=== PATIENT | male | born 1945 | race Caucasian/White ===

== ENCOUNTER 2022-12-12 17:32 | Inpatient (IN) | payer MEDICARE, MEDICAID, SELFPAY ==
--- NOTE | ~2022-12-12 | CT_ITS ---
EXAMINATION: CT ABDOMEN AND PELVIS WITH CONTRAST CLINICAL INFORMATION: Sepsis with left lower quadrant pain COMPARISON: CT abdomen and pelvis 11/28/2018 TECHNIQUE: Multidetector volumetric images were obtained from the superior aspect of the liver through the pubic symphysis following administration 85 mL of Omnipaque 350 intravenous contrast. Sagittal and coronal reformatted images were obtained on the technologist's workstation. Oral contrast: No This CT examination was performed using dose optimization techniques as appropriate, variously including the following: *Automated exposure control *Adjustment of mA and/or kV according to patient size (this includes techniques or standardized protocols for targeted exams where dose is matched to indication/reason for exam; i.e. extremities or head) *Use of iterative reconstruction technique DLP: 547 mGy-cm FINDINGS: LUNG BASES: Bibasilar atelectasis/scarring is present. No consolidations, pleural effusions or suspicious lung masses are seen LIVER, GALLBLADDER, AND BILIARY TREE: The liver is normal in size, shape, and attenuation. No focal hepatic lesion or biliary ductal dilatation is present. Status post cholecystectomy. PANCREAS: Unremarkable. SPLEEN: Unremarkable. ADRENAL GLANDS: Unremarkable. KIDNEYS AND URETERS: The kidneys are normal in size, shape, and attenuation. Dense seen are bilateral Bosniak class I cortical and parapelvic cysts which need no additional imaging or follow-up. No suspicious solid renal masses are seen. No hydronephrosis, hydroureter, or calculi seen. No perinephric stranding. BLADDER: Mild symmetric bladder wall thickening. GASTROINTESTINAL TRACT: There is some mild thickening of the rectal wall which may be secondary to underdistention. No perirectal inflammatory change is seen. Some colonic diverticula are present without diverticulitis. . The small and large bowel are otherwise unremarkable. The appendix is not seen with certainty but there is no evidence of appendicitis appendicitis. ABDOMINAL WALL: No significant hernia is appreciated. LYMPH NODES: No retroperitoneal lymphadenopathy. VASCULAR: Unremarkable. PELVIC VISCERA: There is moderate BPH. Seminal vesicles appear normal. Tiny amount of free fluid is present in the pelvis (3:70). OSSEOUS STRUCTURES: Degenerative changes are again seen in the spine. There is grade 1 anterolisthesis of L5 upon S1. Again seen are 3 screws through the left femoral neck. CT/CT abdomen pelvis w IV con IMPRESSION: An etiology for the patient's left lower quadrant pain has not been found. Incidental findings as described above including BPH. Fleischner guidelines were followed.
--- NOTE | ~2022-12-12 | XR_ITS ---
EXAMINATION: PORTABLE CHEST 1 VIEW CLINICAL INFORMATION: fever . COMPARISON: 11/28/2018. TECHNIQUE: Portable frontal view of the chest was obtained. FINDINGS: Lungs well-expanded. Linear scarring or subsegmental atelectasis at left base. Chronic appearing coarsened reticular markings are seen bilaterally. I do not appreciate any definitive acute superimposed focal infiltrate, effusion, edema, or pneumothorax. Cardiac and mediastinal silhouettes within normal limits for size for the technique. XR/XR chest 1V IMPRESSION: Chronic appearing changes similar to the 11/28/2018 study. I do not appreciate any definitive acute superimposed process.
[2022-12-12 17:33] VITALS: BP 137/74; BP 196/98; PULSE 110; PULSE 98; RESP 16; TEMP 37.4; O2SAT 97; O2SAT 99; BMI 23.8
[2022-12-12 17:42] VITALS: BP 137/74; BP 196/98; PULSE 110; PULSE 92; RESP 18; TEMP 37.4; O2SAT 97; O2SAT 99; BMI 23.8
--- NOTE | 2022-12-12 18:20 | ECG_ITS ---
Test Reason : SEPSYS Blood Pressure : / mmHG Vent. Rate : 082 BPM Atrial Rate : 082 BPM P-R Int : 146 ms QRS Dur : 092 ms QT Int : 340 ms P-R-T Axes : 072 078 064 degrees QTc Int : 397 ms Sinus rhythm with marked sinus arrhythmia Otherwise normal ECG No previous ECGs available Referred By: Kim Meneses Electronically Signed By:Reg Rodarte
[2022-12-12 18:25] VITALS: BP 140/64; PULSE 104; RESP 20; TEMP 39.3; O2SAT 91
[2022-12-12 18:45] LABS: MANUAL DIFF FLAG NO
[2022-12-12 18:47] LABS: Appearance Urine Cloudy; Color Urine Yellow; Glucose Urine UA Negative (Negative); Leukocyte Esterase Urine Moderate (2+) (Negative); Nitrite Urine Negative (Negative); UMIC TRIGGER UACC YES; Urine Blood Trace (Negative); Urine Ketones Negative (Negative); Urine Protein Negative (Neg-Trace)
[2022-12-12 18:50] LABS: Basophils Percent Auto 0.5 % (0-2); Eosinophils Percent Auto 0.3 % (0-4); Hematocrit 34.8 % (42.0-52.0); Hemoglobin 11.7 g/dl (14.0-18.0); Imm Gran Abs Auto 0.02 X10*3/uL (0.00-0.03); Imm Gran Pct Auto 0.3 % (0.0-0.4); Lymphocytes Absolute Auto 0.5 X10*3/uL (1.2-4.9); Lymphocytes Percent Auto 8.1 % (20-40); Mean Corpuscular HGB Conc 33.6 g/dl (31.0-36.0); Mean Corpuscular Hemoglobin 28.9 pg (27.0-33.0); Mean Corpuscular Volume 85.9 fL (80.0-98.0); Mean Platelet Volume 9.3 fL (9.4-12.4); Monocytes Absolute Auto 0.3 X10*3/uL (0.1-1.2); Monocytes Percent Auto 4.3 % (2-11); Neutrophils Absolute Auto 5.6 x10*3/uL (2.0-8.3); Neutrophils Percent Auto 86.5 % (45-73); Platelet Count 143 X10*3/uL (160-400); Red Blood Count 4.05 X10*6/uL (4.60-5.80); Red Cell Distribution Width 13.2 % (11.0-16.0); White Blood Count 6.4 X10*3/uL (4.8-10.8)
[2022-12-12 18:52] LABS: Bacteria Urine 4+ (None Seen); Hyaline Casts Urine 0-2 /LPF (0-2); INTERNATIONAL NORM RATIO 1.1 (0.9-1.1); Prothrombin Time 12.5 SEC (10.0-13.1); RBC Urine >20 /HPF (0-2); Squamous Epithelial Cell Urine 0-2 /HPF (0-2); UACC Culture Trigger YES; WBC Urine >50 /HPF (0-5)
[2022-12-12] MEDS: 0.9 % Sodium Chloride 2,000 ML 999 ML IVCONT (18:53)
[2022-12-12] MEDS: cefTRIAXone sodium 1 GM in 0.9 % Sodium Chloride 50 ML IV (18:53)
[2022-12-12] MEDS: Acetaminophen 325 MG TABLET 975 MG PO (18:54)
--- NOTE | 2022-12-12 18:55 | ED_ITS ---
HPI - Abdominal Pain General Chief Complaint: Abdominal Pain Stated Complaint: ABD PAIN PER EMS Time Seen by Provider: 12/12/22 17:54 Source: EMS Mode of arrival: EMS Limitations: no limitations History of Present Illness HPI narrative: Patient comes to the emergency room via ambulance from home. According to EMS, patient's caregiver noted that the patient had a heart rate in the 120 is. Also, patient complaining of left lower quadrant pain. Patient is poor historian and can not give any significant history. Patient is known to have recurrent UTIs and sepsis. On arrival, it was noted that patient's rectal temperature is 102.7 degrees. Patient states that he has been vomiting and having diarrhea as well. Patient states that everything started this morning. Related Data Allergies Allergy/AdvReac Type Severity Reaction Status Date / Time No Known Allergies Allergy Unverified 12/12/22 17:32 [No Known Allergies*] Review of Systems Review of Systems Constitutional : No Weight loss, No Fever, No Chills, No Night Sweats, No Fatigue, No Malaise ENT/Mouth : No Hearing loss, No Ear Pain, No Nasal Congestion, No Sinus Pain, No Hoarseness, No sore throat, No Rhinorrhea, No Swallowing Difficulty Eyes: No Eye Pain, No Swelling, No Redness, No Foreign Body, No Discharge, No Vision Changes Cardiovascular : No Chest Pain, No SOB, No Dyspnea on Exertion, No Orthopnea, No Edema, No Palpitations Respiratory : No Cough, No Sputum, No Wheezing, No Smoke Exposure, No Dyspnea Gastrointestinal : Complaining of nausea vomiting and diarrhea, complaining of left lower quadrant pain Genitourinary : no irregular bleeding, No Dysuria, No Urinary Frequency, No Hematuria, No Urinary Incontinence, No Urgency, No Flank Pain, No Urinary Flow Changes, No Hesitancy Musculoskeletal : No joint pain, No Myalgias, No Joint Swelling Skin : No Skin Lesions, No rash Neuro : No Weakness, No Numbness, No Paresthesias, No Loss of Consciousness, No Dizziness, No Headache Psych : No Anxiety/Panic, No Depression, No SI/HI/AH/VH, No Social Issues, Heme/Lymph: No Bruising, No Bleeding,No Lymphadenopathy Endocrine : No Polyuria, No Polydipsia, No Temperature Intolerance PMF Social History Social History Alcohol intake: never Smoked in Last 30 Days: No Use of substances other than those prescribed or required for medical reasons: No Advance Directives: No Advance Directives Information Provided: No Physical Exam ED Vital Signs: Vital Signs - 24 hr 12/12/22 17:33 12/12/22 17:42 12/12/22 18:25 Temperature 99.4 F 99.4 F 102.7 F H Pulse Rate 98 92 104 H Respiratory Rate 16 18 20 Blood Pressure 137/74 137/74 140/64 H Pulse Oximetry 97 97 91 L Oxygen Delivery Method Room Air Room Air Room Air 12/12/22 21:23 12/12/22 21:50 Temperature 99.4 F Pulse Rate 79 90 Respiratory Rate 15 16 Blood Pressure 135/61 137/62 Pulse Oximetry 100 99 Oxygen Delivery Method Room Air Room Air BMI result Body Mass Index 23.8 Const Other: Appearance: Alert. Oriented X3. No acute distress. Eyes: Pupils equal, round and reactive to light. ENT: Pharynx normal. Neck: Normal inspection. Neck supple. No lymph nodes noted. No crepitus CVS: Normal heart rate and rhythm. Pulses normal. Normal S1 and S2 Respiratory: No respiratory distress. Breath sounds normal. No Wheezing. No rales Abdomen: Soft nondistended, tender to palpation in left lower quadrant Skin: Dry, very warm to touch. Patient likely has high fever Extremities: No lower extremity edema. No Lacerations. No Rash Neuro: Oriented X 3. No motor deficit. No sensory deficit. Moving all ex tremities. No slurred speech. CN 2 through 12 grossly intact Psych: calm, cooperative, normal affect Course Course Course Narrative: -patient has a fever, normal blood pressure. Patient has history of recurrent UTIs with sepsis. Patient being empirically treated with IV fluids and ceftriaxone, given p.o. acetaminophen -all of patient's labs pending Medical Decision Making Medical Decision Making MDM Narrative: -patient did have fever, tachycardia. Blood pressure stable. Patient was empirically treated with IV fluids and ceftriaxone. -labs are positive for UTI. -patient being admitted, discussed with Dr. Lees Admission/Observation Consideration of admission/observation: Escalation of care including admission/observation considered Consult Healthcare Provider Management of the patient was discussed with: Hospitalist Lab Data [facility] Lab Attestation statement: I reviewed the patient's lab results. 12/12/22 18:35 12/12/22 18:35 Labs: Lab Results 12/12/22 12/12/2212/12/23 Range/Units 18:35 18:35 18:35 WBC 6.4 (4.8-10.8) X10*3/uL RBC 4.05 L (4.60-5.80) X10*6/uL Hgb 11.7 L (14.0-18.0) g/dl Hct 34.8 L (42.0-52.0) % MCV 85.9 (80.0-98.0) fL MCH 28.9 (27.0-33.0) pg MCHC 33.6 (31.0-36.0) g/dl RDW 13.2 (11.0-16.0) % Plt Count 143 L (160-400) X10*3/uL MPV 9.3 L (9.4-12.4) fL Immature Gran % (Auto) 0.3 (0.0-0.4) % Neut % (Auto) 86.5 H (45-73) % Lymph % (Auto) 8.1 L (20-40) % [place] % (Auto) 4.3 (2-11) % Eos % (Auto) 0.3 (0-4) % Baso % (Auto) 0.5 (0-2) % Lymph # (Auto) 0.5 L (1.2-4.9) X10*3/uL [place] # (Auto) 0.3 (0.1-1.2) X10*3/uL Eos # (Auto) 0.0 (0.0-0.4) X10*3/uL Baso # (Auto) 0.0 (0.0-0.2) X10*3/uL Abs Immat Gran (auto) 0.02 (0.00-0.03) X10*3/uL Absolute Neuts (auto) 5.6 (2.0-8.3) x10*3/uL Absolute Nucleated RBC 0.000 (0.0-0.012) X10*3/uL Nucleated RBC % (auto) 0.0 (0.0-0.2) /100WBC PT (10.0-13.1) SEC INR (0.9-1.1) Sodium 140 (135-145) mmol/L Potassium 4.1 (3.3-5.1) mmol/L Chloride 108 (96-108) mmol/L Carbon Dioxide 23 (22-29) mmol/L Anion Gap 13 (12-20) BUN 26 H (9-16) mg/dL Creatinine 0.74 (0.5-1.4) mg/dL Estim Creat Clear Calc 95.6 Estimated GFR > 60 Random Glucose 106 (60-115) mg/dL Lactic Acid (0.5-2.0) mmol/L Calcium 8.5 (8.4-10.2) mg/dL Magnesium 1.5 L (1.6-2.6) mg/dL Total Bilirubin 0.4 (0.0-1.0) mg/dL Direct Bilirubin < 0.2 (0.0-0.5) mg/dL AST 14 (5-37) U/L ALT 12 (0-40) U/L Alkaline Phosphatase 62 (39-117) U/L Troponin I High Sens 9.4 (<3.5-35.0) ng/L Total Protein 5.9 L (6.5-8.0) g/dL Albumin 3.6 (3.5-5.0) g/dL Lipase 16 (8-78) U/L Urine Color Urine Appearance Urine pH (5.0-9.0) Ur Specific [place] (1.005-1.025) Urine Protein (Neg-Trace) mg/dL Urine Glucose (UA) (Negative) mg/dL Urine Ketones (Negative) mg/dL Urine Blood (Negative) Urine Nitrite (Negative) Ur Leukocyte Esterase (Negative) Urine RBC (0-2) /HPF Urine WBC (0-5) /HPF Ur Squamous Epith Cells (0-2) /HPF Urine Bacteria (None Seen) Hyaline Casts (0-2) /LPF COVID-19 (KA[facility]AL) (Negative) COVID-19 Clin Com Influenza Type A (JUAN PABLO) (Negative) Influenza Type B (JUAN PABLO) (Negative) Influenza A & B Note 12/12/22 12/12/22 12/12/22 Range/Units 18:35 18:35 18:35 WBC (4.8-10.8) X10*3/uL RBC (4.60-5.80) X10*6/uL Hgb (14.0-18.0) g/dl Hct (42.0-52.0) % MCV (80.0-98.0) fL MCH (27.0-33.0) pg MCHC (31.0-36.0) g/dl RDW (11.0-16.0) % Plt Count (160-400) X10*3/uL MPV (9.4-12.4) fL Immature Gran % (Auto) (0.0-0.4) % Neut % (Auto) (45-73) % Lymph % (Auto) (20-40) % [place] % (Auto) (2-11) % Eos % (Auto) (0-4) % Baso % (Auto) (0-2) % Lymph # (Auto) (1.2-4.9) X10*3/uL [place] # (Auto) (0.1-1.2) X10*3/uL Eos # (Auto) (0.0-0.4) X10*3/uL Baso # (Auto) (0.0-0.2) X10*3/uL Abs Immat Gran (auto) (0.00-0.03) X10*3/uL Absolute Neuts (auto) (2.0-8.3) x10*3/uL Absolute Nucleated RBC (0.0-0.012) X10*3/uL Nucleated RBC % (auto) (0.0-0.2) /100WBC PT 12.5 (10.0-13.1) SEC INR 1.1 (0.9-1.1) Sodium (135-145) mmol/L Potassium (3.3-5.1) mmol/L Chloride (96-108) mmol/L Carbon Dioxide (22-29) mmol/L Anion Gap (12-20) BUN (9-16) mg/dL Creatinine (0.5-1.4) mg/dL Estim Creat Clear Calc Estimated GFR Random Glucose (60-115) mg/dL Lactic Acid 1.0 (0.5-2.0) mmol/L Calcium (8.4-10.2) mg/dL Magnesium (1.6-2.6) mg/dL Total Bilirubin (0.0-1.0) mg/dL Direct Bilirubin (0.0-0.5) mg/dL AST (5-37) U/L ALT (0-40) U/L Alkaline Phosphatase (39-117) U/L Troponin I High Sens (<3.5-35.0) ng/L Total Protein (6.5-8.0) g/dL Albumin (3.5-5.0) g/dL Lipase (8-78) U/L Urine Color Urine Appearance Urine pH (5.0-9.0) Ur Specific [place] (1.005-1.025) Urine Protein (Neg-Trace) mg/dL Urine Glucose (UA) (Negative) mg/dL Urine Ketones (Negative) mg/dL Urine Blood (Negative) Urine Nitrite (Negative) Ur Leukocyte Esterase (Negative) Urine RBC (0-2) /HPF Urine WBC (0-5) /HPF Ur Squamous Epith Cells (0-2) /HPF Urine Bacteria (None Seen) Hyaline Casts (0-2) /LPF COVID-19 (KAJAL) Negative (Negative) COVID-19 Clin Com See Note Influenza Type A (JUAN PABLO) (Negative) Influenza Type B (JUAN PABLO) (Negative) Influenza A & B Note 12/12/22 12/12/22 Range/Units 18:35 21:22 WBC (4.8-10.8) X10*3/uL RBC (4.60-5.80) X10*6/uL Hgb (14.0-18.0) g/dl Hct (42.0-52.0) % MCV (80.0-98.0) fL MCH (27.0-33.0) pg MCHC (31.0-36.0) g/dl RDW (11.0-16.0) % Plt Count (160-400) X10*3/uL MPV (9.4-12.4) fL Immature Gran % (Auto) (0.0-0.4) % Neut % (Auto) (45-73) % Lymph % (Auto) (20-40) % [place] % (Auto) (2-11) % Eos % (Auto) (0-4) % Baso % (Auto) (0-2) % Lymph # (Auto) (1.2-4.9) X10*3/uL [place] # (Auto) (0.1-1.2) X10*3/uL Eos # (Auto) (0.0-0.4) X10*3/uL Baso # (Auto) (0.0-0.2) X10*3/uL Abs Immat Gran (auto) (0.00-0.03) X10*3/uL Absolute Neuts (auto) (2.0-8.3) x10*3/uL Absolute Nucleated RBC (0.0-0.012) X10*3/uL Nucleated RBC % (auto) (0.0-0.2) /100WBC PT (10.0-13.1) SEC INR (0.9-1.1) Sodium (135-145) mmol/L Potassium (3.3-5.1) mmol/L Chloride (96-108) mmol/L Carbon Dioxide (22-29) mmol/L Anion Gap (12-20) BUN (9-16) mg/dL Creatinine (0.5-1.4) mg/dL Estim Creat Clear Calc Estimated GFR Random Glucose (60-115) mg/dL Lactic Acid (0.5-2.0) mmol/L Calcium (8.4-10.2) mg/dL Magnesium (1.6-2.6) mg/dL Total Bilirubin (0.0-1.0) mg/dL Direct Bilirubin (0.0-0.5) mg/dL AST (5-37) U/L ALT (0-40) U/L Alkaline Phosphatase (39-117) U/L Troponin I High Sens (<3.5-35.0) ng/L Total Protein (6.5-8.0) g/dL Albumin (3.5-5.0) g/dL Lipase (8-78) U/L Urine Color Yellow Urine Appearance Cloudy Urine pH 6.0 (5.0-9.0) Ur Specific [place] 1.020 (1.005-1.025) Urine Protein Negative (Neg-Trace) mg/dL Urine Glucose (UA) Negative (Negative) mg/dL Urine Ketones Negative (Negative) mg/dL Urine Blood Trace H (Negative) Urine Nitrite Negative (Negative) Ur Leukocyte Esterase Moderate (2+) H (Negative) Urine RBC >20 H (0-2) /HPF Urine WBC >50 H (0-5) /HPF Ur Squamous Epith Cells 0-2 (0-2) /HPF Urine Bacteria 4+ (None Seen) Hyaline Casts 0-2 (0-2) /LPF COVID-19 (KA[facility]) (Negative) COVID-19 Clin Com Influenza Type A (JUAN PABLO) Negative (Negative) Influenza Type B (JUAN PABLO) Negative (Negative) Influenza A & B Note See Note Radiology Impression Discussion of test interpretation with radiology: I have reviewed the radiologist's reading. Radiologist Impression: CT scan of abdomen and pelvis: FINDINGS: LUNG BASES: Bibasilar atelectasis/scarring is present. No consolidations, pleural effusions or suspicious lung masses are seen LIVER, GALLBLADDER, AND BILIARY TREE: The liver is normal in size, shape, and attenuation. No focal hepatic lesion or biliary ductal dilatation is present. Status post cholecystectomy.? PANCREAS: Unremarkable.? SPLEEN: Unremarkable.? ADRENAL GLANDS: Unremarkable.? KIDNEYS AND URETERS: The kidneys are normal in size, shape, and attenuation. Dense seen are bilateral Bosniak class I cortical and parapelvic cysts which need no additional imaging or follow-up. No suspicious solid renal masses are seen. No hydronephrosis, hydroureter, or calculi seen. No perinephric stranding. ? BLADDER: Mild symmetric bladder wall thickening.? GASTROINTESTINAL TRACT: There is some mild thickening of the rectal wall which may be secondary to underdistention. No perirectal inflammatory change is seen. Some colonic diverticula are present without diverticulitis. . The small and large bowel are otherwise unremarkable. The appendix is not seen with certainty but there is no evidence of appendicitis appendicitis.? ABDOMINAL WALL: No significant hernia is appreciated.? LYMPH NODES: No retroperitoneal lymphadenopathy. VASCULAR: Unremarkable. PELVIC VISCERA: There is moderate BPH. Seminal vesicles appear normal. Tiny amount of free fluid is present in the pelvis (3:70). OSSEOUS STRUCTURES: Degenerative changes are again seen in the spine. There is grade 1 anterolisthesis of L5 upon S1. Again seen are 3 screws through the left femoral neck. CT/CT abdomen pelvis w IV con IMPRESSION: An etiology for the patient's left lower quadrant pain has not been found. Incidental findings as described above including BPH. ? Fleischner guidelines were followed. Chest x-ray: FINDINGS: Lungs well-expanded. Linear scarring or subsegmental atelectasis at left base. Chronic appearing coarsened reticular markings are seen bilaterally. I do not appreciate any definitive acute superimposed focal infiltrate, effusion, edema, or pneumothorax. Cardiac and mediastinal silhouettes within normal limits for size for the technique. XR/XR chest 1V IMPRESSION: Chronic appearing changes similar to the 11/28/2018 study. I do not appreciate any definitive acute superimposed process Medications Administered Discontinued Medications Generic Name Dose Route Start Last Admin Trade Name Freq PRN Reason Stop Dose Admin Acetaminophen 975 mg 12/12/22 18:37 12/12/22 18:54 Acetaminophen 325 Mg Tablet PO 12/12/22 18:38 975 mg ONCE ONE Administration Sodium Chloride 2,000 mls @ 999 mls/hr 12/12/22 18:20 12/12/22 21:20 Ns IVCONT 12/12/22 20:20 Infused .Q2H1M ONE Infusion Ceftriaxone Sodium 1 gm/ 50 mls @ 100 mls/hr 12/12/22 18:36 12/12/22 19:25 Sodium Chloride IV 12/12/22 19:05 Infused ONCE ONE Infusion Magnesium Sulfate/Dextrose 1 gm in 100 mls @ 100 mls/hr 12/12/22 19:47 12/12/22 21:20 Magnesium Sulfate/D5w IV 12/12/22 20:46 Infused ONCE ONE Infusion Iohexol 100 ml 12/12/22 19:40 12/12/22 19:40 Iohexol 350 Mg/Ml 100 Ml Infus..Btl IV 12/12/22 19:41 85 ml ONCE ONE Administration Critical Care Time Critical Care Time Critical Care Time: Yes Total Critical Care Time: 45 Attestation: I have personally provided critical care time. Time includes review of lab data, radiology results, discussion with consultants, and monitoring for potential decompensation. Intervention performed as documented. Discharge Plan Discharge Clinical Impression: Acute UTI Patient Disposition: Admitted As Inpatient
[2022-12-12 19:04] LABS: Alanine Aminotransferase 12 U/L (0-40); Albumin Level 3.6 g/dL (3.5-5.0); Alkaline Phosphatase 62 U/L (39-117); Anion Gap 13 (12-20); Aspartate Amino Transferase 14 U/L (5-37); Bilirubin Direct < 0.2 mg/dL (0.0-0.5); Bilirubin Total 0.4 mg/dL (0.0-1.0); Blood Urea Nitrogen 26 mg/dL (9-16); COVID-19 Test Negative (Negative); Calcium 8.5 mg/dL (8.4-10.2); Carbon Dioxide 23 mmol/L (22-29); Chloride 108 mmol/L (96-108); Creatinine Clr Calc Pharmacy 95.6; Estimated Glomerular Filt Rate > 60; Glucose Random 106 mg/dL (60-115); IDNOW Serial# 6674DD1D; Magnesium 1.5 mg/dL (1.6-2.6); Potassium 4.1 mmol/L (3.3-5.1); Sodium 140 mmol/L (135-145); Total Protein 5.9 g/dL (6.5-8.0)
[2022-12-12 19:08] LABS: Troponin-I High Sensitivity 9.4 ng/L (<3.5-35.0)
[2022-12-12 19:20] LABS: Lipase 16 U/L (8-78)
[2022-12-12] MEDS: iohexoL 350 MG/ML 100 ML INFUS..BTL IV (19:40)
[2022-12-12] MEDS: Magnesium Sulfate/D5W 1 GM/100 ML PIGGYBACK IV (20:22)
[2022-12-12 21:23] VITALS: BP 135/61; PULSE 79; RESP 15; TEMP 37.4; O2SAT 100
--- NOTE | 2022-12-12 21:43 | PC.NURSE ---
This RN received pt at 2114, pt fluids finishing up, mag finished. BP entered for sepsis protocol. This RN and PCT Adriana, changed pt and took new rectal temp. Temp has decreased from original temperature. Pt reports mild abdominal pain at this time
[2022-12-12 21:50] VITALS: BP 137/62; PULSE 90; RESP 16; O2SAT 99
[2022-12-12 22:17] LABS: IDNOW Serial# 6674DD1D; Influenza A Negative (Negative); Influenza B2 Negative (Negative)
[2022-12-12 22:47] VITALS: BP 120/67; PULSE 82; RESP 16; O2SAT 98
--- NOTE | 2022-12-12 23:50 | PM.IMHP ---
History of Present Illness Date of Service: 12/12/22 Chief Complaint: chills, tachycardic this is a 77-year-old male with past medical history of intellectual disability,HTN brought in by his assistant child care teacher due to tachycardia. patient is alert, oriented to self and place and does answer yes or no questions but he is very soft-spoken, and information technology teacher is mostly answering for him. She states that he was complaining of shaking, chills, she checked his vitals and found him to have a heart rate in the 120s. She also states that last night he was pointing to his bladder and stating that he was hurting. Patient himself reports urinary frequency, no dysuria or urgency. no fever but has chills, no abdominal pain no chest pain, no nausea or vomiting, no diarrhea constipation But has soft stools, no urinary symptoms. information technology teacher also states that he has been having eye drainage in his left that is tacky, and appears to be eye infection. Started the night prior. on arrival to the ED patient hemodynamically stable with a temperature of 102.7 degrees, heart rate of 104 Labs are significant for WBC count of 6.4, hemoglobin of 11.7, hematocrit 34.8, labs otherwise unremarkable, UA positive for leukocyte Estrace, WBC, and urine bacteria, chest x-ray shows chronic appearing changes similar to prior with no new acute superimposed process Abdominal pelvic CT shows no etiology for left lower quadrant pain, diverticulosis with no diverticulitis Review of Systems Review of Systems: Yes all other systems are reviewed and are negative [facility] Medical History Hypertension Intellectual disability Social History Household Members: Spouse Housing: House Do you presently have visiting nurse or other home services: Yes Alcohol intake: never Patient Tobacco Use Status: Never used Tobacco Smoked in Last 30 Days: No Use of substances other than those prescribed or required for medical reasons: No Currently Displaying Signs/Symptoms of Drug Intoxication Withdrawal: No Any prior treatment program specific to substance use: No Have you been hit, kicked, punched, or otherwise hurt by someone within the past year? If so, by whom?: No Do you feel safe in your current relationship?: Yes Is there a partner from a previous relationship who is making you feel unsafe now?: No Are you made to feel afraid or neglected: No Advance Directives: No Advance Directives Information Provided: No Do you have thoughts of harming others: None Do you have a plan to hurt others: No Plan Recently lost weight without trying: No Eating poorly because of decreased appetite: No Nutrition Risks: No Nutritional Risk Poor oral hygiene: No Meds Allergies Allergy/AdvReac Type Severity Reaction Status Date / Time No Known Allergies Allergy Unverified 12/12/22 17:32 [No Known Allergies*] Physical Exam Vital Signs and Narrative: Vital Signs: Last Vital Signs Temp 99.4 F 12/12/22 21:23 Pulse 82 12/12/22 22:47 Resp 16 12/12/22 22:47 BP 120/67 12/12/22 22:47 Pulse Ox 98 12/12/22 22:47 O2 Del Method 12/12/22 22:47 BMI result Body Mass Index 23.8 Const: Other: oriented to self and place General: cooperative and no acute distress Eyes: General: appearance normal, both eyes and all related structures Resp: Effort & Inspection: normal respiratory effort Auscultation: clear to auscultation bilaterally Cardio: Rate: regular rate Rhythm: regular rhythm GI: Palpation (GI): Soft to palpation Auscultation: normal bowel sounds : Other: no CVA tenderness Skin: General skin exam: no rashes or lesions noted Neuro: Cognition (Neuro): normal cognition Extrem: General: Yes normal to inspection and Yes no pedal edema Results Labs 12/12/22 18:35 12/12/22 18:35 Labs: Laboratory Results - last 24 hr 12/12/22 12/12/22 12/12/22 18:35 18:35 18:35 MCV 85.9 MCH 28.9 MCHC 33.6 RDW 13.2 Plt Count 143 L MPV 9.3 L Immature Gran % (Auto) 0.3 Neut % (Auto) 86.5 H Lymph % (Auto) 8.1 L [place] % (Auto) 4.3 Eos % (Auto) 0.3 Baso % (Auto) 0.5 Lymph # (Auto) 0.5 L [place] # (Auto) 0.3 Eos # (Auto) 0.0 Baso # (Auto) 0.0 Abs Immat Gran (auto) 0.02 Absolute Neuts (auto) 5.6 Absolute Nucleated RBC 0.000 Nucleated RBC % (auto) 0.0 PT INR Anion Gap 13 Estim Creat Clear Calc 95.6 Estimated GFR > 60 Random Glucose 106 Lactic Acid Calcium 8.5 Magnesium 1.5 L Total Bilirubin 0.4 Direct Bilirubin < 0.2 AST 14 ALT 12 Alkaline Phosphatase 62 Troponin I High Sens 9.4 Total Protein 5.9 L Albumin 3.6 Lipase 16 Urine Color Urine Appearance Urine pH Ur Specific [place] Urine Protein Urine Glucose (UA) Urine Ketones Urine Blood Urine Nitrite Ur Leukocyte Esterase Urine RBC Urine WBC Ur Squamous Epith Cells Urine Bacteria Hyaline Casts COVID-19 ([facility]) COVID-19 Clin Com Influenza Type A ([facility]UAN PABLO) Influenza Type B (JUAN PABLO) Influenza A & B Note 12/12/22 12/12/22 12/12/22 18:35 18:35 18:35 MCV MCH MCHC RDW Plt Count MPV Immature Gran % (Auto) Neut % (Auto) Lymph % (Auto) [place] % (Auto) Eos % (Auto) Baso % (Auto) Lymph # (Auto) [place] # (Auto) Eos # (Auto) Baso # (Auto) Abs Immat Gran (auto) Absolute Neuts (auto) Absolute Nucleated RBC Nucleated RBC % (auto) PT 12.5 INR 1.1 Anion Gap Estim Creat Clear Calc Estimated GFR Random Glucose Lactic Acid 1.0 Calcium Magnesium Total Bilirubin Direct Bilirubin AST ALT Alkaline Phosphatase Troponin I High Sens Total Protein Albumin Lipase Urine Color Urine Appearance Urine pH Ur Specific [place] Urine Protein Urine Glucose (UA) Urine Ketones Urine Blood Urine Nitrite Ur Leukocyte Esterase Urine RBC Urine WBC Ur Squamous Epith Cells Urine Bacteria Hyaline Casts COVID-19 (KAJAL) Negative COVID-19 Clin Com See Note Influenza Type A (JUAN PABLO) Influenza Type B (JUAN PABLO) Influenza A & B Note 12/12/22 12/12/22 18:35 21:22 MCV MCH MCHC RDW Plt Count MPV Immature Gran % (Auto) Neut % (Auto) Lymph % (Auto) [place] % (Auto) Eos % (Auto) Baso % (Auto) Lymph # (Auto) [place] # (Auto) Eos # (Auto) Baso # (Auto) Abs Immat Gran (auto) Absolute Neuts (auto) Absolute Nucleated RBC Nucleated RBC % (auto) PT INR Anion Gap Estim Creat Clear Calc Estimated GFR Random Glucose Lactic Acid Calcium Magnesium Total Bilirubin Direct Bilirubin AST ALT Alkaline Phosphatase Troponin I High Sens Total Protein Albumin Lipase Urine Color Yellow Urine Appearance Cloudy Urine pH 6.0 Ur Specific [place] 1.020 Urine Protein Negative Urine Glucose (UA) Negative Urine Ketones Negative Urine Blood Trace H Urine Nitrite Negative Ur Leukocyte Esterase Moderate (2+) H Urine RBC >20 H Urine WBC >50 H Ur Squamous Epith Cells 0-2 Urine Bacteria 4+ Hyaline Casts 0-2 COVID-19 (KA[facility]) COVID-19 Clin Com Influenza Type A (JUAN PABLO) Negative Influenza Type B (JUAN PABLO) Negative Influenza A & B Note See Note Imaging Radiologist's Impressions: Impressions Chest X-Ray 12/12/22 19:12 IMPRESSION: Chronic appearing changes similar to the 11/28/2018 study. I do not appreciate any definitive acute superimposed process. Abdomen/Pelvis CT 12/12/22 19:41 IMPRESSION: An etiology for the patient's left lower quadrant pain has not been found. Incidental findings as described above including BPH. Fleischner guidelines were followed. Assessment and Plan (1) Sepsis: Status: Acute (2) Acute UTI: Status: Acute (3) Left conjunctivitis: Status: Acute Plan 77-year-old male with past medical history of hypertension, intellectual disability, presents the hospital with tachycardia found to have sepsis secondary to UTI # acute sepsis - secondary to UTI, chest x-ray shows no acute process, abdominal CT negative - will treat with IV antibiotics - follow blood cultures # UTI - likely source of sepsis - positive UA, symptomatic - will treat with IV antibiotics - follow cultures # left eye conjunctivitis - will be on antibiotics as above, will add erythromycin eye ointment - monitor resolution patient's med recs are being done currently, and resume his home medications otherwise DVT prophylaxis: Lovenox given patient's need for treatment of sepsis with IV antibiotics patient require minimum 2 night inpatient hospital stay for further management and monitoring Time Spent With Patient Time: Total time managing care of this patient today ____ minutes. Quality Stroke Does the patient have a stroke diagnosis?: No VTE Prior VTE?: No VTE Risk Level:: Medical - moderate - high VTE Device Contraindication: Treatment Not Indicated VTE Drug Contraindication: N/A - Med Ordered
--- OUTSIDE RECORDS SUMMARY | 2022-12-12 23:55 | XMS_ITS | Continuity of Care Document ---
:1945 Author Organization [facility] Address [address] [place] [address]- Care Team Providers Name Role Phone Edinson De Los Santos MD Primary Care Physician Encounter [facility] Date(s): 02/07/20 - 02/10/[address] [address]- [facility] Encounter Diagnosis Fever (Final) - 02/07/20 Discharge Disposition: A-Transfer VNA/Home Health Attending Physician: Elvin Lyles MD Admitting Physician: William COSTA, Joan Harris Referring Physician: Not on Staff, Referring MD Allergies, Adverse Reactions, Alerts Substance Reaction Severity Status NKA Active Medications Acetaminophen = 650 mg, By Mouth, Every 4 hours, PRN as needed for pain, 0 Refills, Maintenance, 09/26/15 12:00:23 Start Date: 09/26/15 Status: OrderedAugmentin 875 mg-125 mg oral tablet 1 tablet, By Mouth, Every 12 hours, for 2 days, Start taking TuesdayFebruary 10 in morning. Take withfood, # 4 tablet, 0 Refills, Acute 02/12/20 13:59:00 EDT, 02/10/20 13:59:00 EDT, Tablet, [facility], 78, kg, 02/07/20 15:03:00 EDT, Dry... Start Date: 02/10/20 Stop Date: 02/12/20 Status: OrderedAugmentin 875 mg-125 mg oral tablet 1 tablet, By Mouth, Every 12 hours, for 3 days, Start taking TuesdayFebruary 10 in morning. Take withfood, # 6 tablet, 0 Refills, Acute 02/15/20 13:59:00 EDT, 02/12/20 13:59:00 EDT, Tablet, [facility], 78, kg, 02/07/20 15:03:00 EDT, Dry... Start Date: 02/12/20 Stop Date: 02/15/20 Status: Orderedciclopirox 0.77% topical gel Topically, 2 times a day, 0 Refills, Maintenance, 02/07/20 16:59:00 EDT Start Date: 02/07/20 Status: Orderedcitalopram 20 mg oral tablet 20 mg, 1, tablet, By Mouth, Daily, # 30 tablet, Refills 0, Maintenance, 02/07/20 16:53:00 EDT Start Date: 02/07/20 Status: OrderedDebrox 6.5% solution See Instructions, 5 drops 2 times a day, 0 Refills, Maintenance, 02/07/20 16:56:00 EDT Start Date: 02/07/20 Status: Ordereddocusate sodium 100 mg oral tablet 1 tablet = 100 mg, By Mouth, 2 times a day, PRN for constipation, # 100 tablet, 0 Refills, Maintenance, 02/07/20 16:54:00 EDT, Tablet Start Date: 02/07/20 Status: OrderedFlomax 0.4 mg oral capsule 1 capsule = 0.4 mg, By Mouth, Daily, # 30 capsule, 0 Refills, Maintenance, 09/26/15 12:07:01, Capsule Start Date: 09/26/15 Status: OrderedFurosemide 10, By Mouth, Daily, 0 Refills, Maintenance, 02/07/20 16:50:00 EDT Start Date: 02/07/20 Status: OrderedMiraLax oral powder for reconstitution = 17 Gm, By Mouth, Daily, dissolve in water before taking, # 255 Gm, 0 Refills, Maintenance, 02/07/20 16:53:00 EDT, REC Powder Start Date: 02/07/20 Status: OrderedMultivitamin By Mouth, Daily, 0 Refills, Maintenance, 09/26/15 11:58:59 Start Date: 09/26/15 Status: Orderedomeprazole 20 mg oral enteric coated capsule 1 capsule = 20 mg, By Mouth, Daily, # 30 capsule, 0 Refills, Maintenance, 09/26/15 11:59:48, EC Capsule Start Date: 09/26/15 Status: OrderedTriamcinolone 0.1% Topical 1 application, Topically, 2 times a day, PRN Rash, # 15 Gm, 0 Refills, Maintenance, Cream Start Date: 09/26/15 Status: Ordered Results Orders for Microbiology Reports Name Date Blood Culture 02/07/20 Blood Culture #2 02/07/20 Urine Culture (URINE CULTURE) 02/07/20 Microbiology Reports TEST:Blood Culture, Second Order STATUS:Unauthenticated BODY SITE: SOURCE:Blood COLLECTED DATE/TIME:02/07/20 12:55 PMBlood Culture, Second Order SPECIMEN DESCRIPTION : BLOOD LT HAND SPECIAL REQUESTS : NONE CULTURE : NO GROWTH 3 DAYS REPORT STATUS : PRELIMINARY REPORT TEST:Urine Culture STATUS:Auth (Verified) BODY SITE: SOURCE:URINE COLLECTED DATE/TIME:02/07/20 12:10 PMUrine Culture SPECIMEN DESCRIPTION : URINE SPECIAL REQUESTS : NONE Reflexed from [id number] CULTURE : >100,000 COL/ML ESCHERICHIA COLI REPORT STATUS : FINAL 02/09/2020 ORGANISM >100,000 COL/ML ESCHERICHIA COLI METHOD MIN. INHIB. CONC. (MCG/ML) AMPICILLIN SUSCEPTIBLE AMPICILLIN/SULBACTAM SUSCEPTIBLE AMOXICILLIN/CLAVULAN SUSCEPTIBLE CEFAZOLIN SUSCEPTIBLE CEFEPIME SUSCEPTIBLE CEFTRIAXONE SUSCEPTIBLE CIPROFLOXACIN SUSCEPTIBLE ERTAPENEM SUSCEPTIBLE GENTAMICIN SUSCEPTIBLE LEVOFLOXACIN SUSCEPTIBLE MEROPENEM SUSCEPTIBLE NITROFURANTOIN SUSCEPTIBLE PIPERACILLIN/TAZOBAC SUSCEPTIBLE TRIMETH/SULFAMETHOX SUSCEPTIBLE TETRACYCLINE SUSCEPTIBLETEST:Blood Culture STATUS:Unauthenticated BODY SITE: SOURCE:Blood COLLECTED DATE/TIME:02/07/20 11:15 AMBlood Culture SPECIMEN DESCRIPTION : BLOOD R ARM SPECIAL REQUESTS : NONE CULTURE : NO GROWTH 3 DAYS REPORT STATUS : PRELIMINARY REPORT Radiology Reports Exam Date Time Procedure Performing Provider Status 02/07/20 1:29 PM Chest Portable Aden García; Auth (Verified) Notes:(Chest Portable) Reason For Exam: Shortness of BreathRESULT: Chest Portable Chest Portable INDICATION: Shortness of Breath; Clinical Question(s): Pneumonia; Hx of Present Illness: Unable to obtain info from pt. From correction, EMS reports SOB, incont of urine, and fever. COMPARISON: None. FINDINGS: LINES AND TUBES: None. LUNGS AND PLEURA: Hazy interstitial opacities throughout both lungs with bilateral lower lung airspace opacities. No pleural effusion. No pneumothorax. HEART, MEDIASTINUM AND STEVEN: Heart is normal in size. Normal mediastinal and hilar contour. BONES AND SOFT TISSUES: No acute abnormality. IMPRESSION: Bilateral interstitial and alveolar opacities concerning for atypical infection, viral pneumonia is possible. WSN: [id number] Ordering Physician: Ann Winn Dictated By: Rodrigo Montejo MD Dictated Date/Time: 02/07/20 1:32 pm Reviewed By: Rodrigo Montejo MD Signed By: Rodrigo Montejo MD Signed Date/Time: 02/07/20 1:32 pm Transcribed By: CSZain Transcribed Date/Time: 02/07/20 1:31 pm Vital Signs Most recent to oldest 1 2 3 [Reference Range]: Weight 79.2 kg (02/08/20 5:00 AM) Oxygen Saturation [94-100 %] 100 % 96 % 97 % (02/10/20 2:15 PM) (02/10/20 4:42 AM) (02/09/20 9:1 0 PM) Pulse Rate [55-90 bpm] 75 bpm 71 bpm 75 bpm (02/10/20 2:15 PM) (02/10/20 4:42 AM) (02/09/20 9:1 0 PM) Blood Pressure [90-138/55-84 mm 108/68 mm Hg 138/68 mm Hg 111/48 mm Hg Hg] (02/10/20 2:15 PM) (02/10/20 4:42 AM) (02/09/20 9:1 0 PM) Respiratory Rate [16-30 br/min] 18 br/min 18 br/min 18 br/min (02/10/20 2:15 PM) (02/10/20 4:42 AM) (02/09/20 9:1 0 PM) Temperature [96.8-100.4 DegF] 98.1 DegF 98 DegF 98 .1 DegF (02/10/20 2:15 PM) (02/10/20 4:42 AM) (02/09/20 9:1 0 PM) Mode of Delivery (Oxygen) Room air Room air Room a ir (02/10/20 2:15 PM) (02/10/20 4:42 AM) (02/09/20 9:1 0 PM) Blood pressure sites Arm, right Arm, right Arm, right (02/10/20 2:15 PM) (02/10/20 4:42 AM) (02/09/20 9:1 0 PM) Temperature Route Oral Oral Oral (02/10/20 2:15 PM) (02/10/20 4:42 AM) (02/09/20 9:1 0 PM) Dry Weight 78 kg 78 kg 78 kg (02/07/20 3:03 PM) (02/07/20 2:57 PM) (02/07/20 1:06 P M) Weight Obtained Via Bed scale (02/08/20 5:00 AM) Social History Social History Type Response Smoking Status Never smoker entered on: 06/30/15 Sex
[2022-12-13 00:29] VITALS: BP 145/71; PULSE 83; RESP 22; TEMP 36.6; O2SAT 95
[2022-12-13] MEDS: Enoxaparin Sodium 40 MG/0.4 ML SYRINGE SUBCUT ×2 (00:48→22:23)
[2022-12-13] MEDS: 0.9 % Sodium Chloride Flush 3 ML SYRINGE IVFLUSH ×4 (00:49→22:36)
[2022-12-13 01:22] VITALS: BMI 22.8
[2022-12-13 01:49] VITALS: BP 155/72; PULSE 83; RESP 18; TEMP 36.2; O2SAT 98
[2022-12-13] MEDS: ondansetron HCL 4 MG/2 ML VIAL IVPUSH (02:53)
[2022-12-13 05:50] LABS: Basophils Percent Auto 0.2 % (0-2); Imm Gran Abs Auto 0.03 X10*3/uL (0.00-0.03); Imm Gran Pct Auto 0.6 % (0.0-0.4); MANUAL DIFF FLAG SCAN; PLT CLUMP 1; Red Cell Distribution Width 13.2 % (11.0-16.0); SCAN SMEAR FLAG 1
[2022-12-13 05:51] LABS: Hematocrit 34.7 % (42.0-52.0); Lymphocytes Absolute Auto 0.3 X10*3/uL (1.2-4.9); Lymphocytes Percent Auto 5.7 % (20-40); Mean Corpuscular HGB Conc 34.6 g/dl (31.0-36.0); Mean Corpuscular Hemoglobin 29.9 pg (27.0-33.0); Mean Corpuscular Volume 86.3 fL (80.0-98.0); Mean Platelet Volume 9.2 fL (9.4-12.4); Monocytes Absolute Auto 0.2 X10*3/uL (0.1-1.2); Monocytes Percent Auto 3.1 % (2-11); Neutrophils Absolute Auto 4.4 x10*3/uL (2.0-8.3); Neutrophils Percent Auto 90.4 % (45-73); Red Blood Count 4.02 X10*6/uL (4.60-5.80)
[2022-12-13 06:05] LABS: Anion Gap 12 (12-20); Blood Urea Nitrogen 20 mg/dL (9-16); Calcium 8.2 mg/dL (8.4-10.2); Carbon Dioxide 21 mmol/L (22-29); Chloride 108 mmol/L (96-108); Creatinine Clr Calc Pharmacy 103.8; Estimated Glomerular Filt Rate > 60; Glucose Random 109 mg/dL (60-115); Potassium 3.6 mmol/L (3.3-5.1); Sodium 137 mmol/L (135-145)
[2022-12-13 06:08] LABS: Platelet Count 110 X10*3/uL (160-400); SLIDE REVIEW VERIFIED; White Blood Count 4.9 X10*3/uL (4.8-10.8)
[2022-12-13 06:19] LABS: Magnesium 1.7 mg/dL (1.6-2.6)
[2022-12-13 07:34] VITALS: BP 134/62; PULSE 71; RESP 20; TEMP 36.9; O2SAT 97
--- NOTE | 2022-12-13 08:57 | MHC.CM.PN ---
Patient has a history of Intellectual Disability; CM spoke with Caregiver/Mary Grace @ [phone] and addressed IMM with her (original will be mailed certified letter to Mary Grace and a copy has been placed on the chart). Patient has lived in an Adult Foster Care setting with Mary Grace X 7 years and he is active with [facility] and uses a cane. Home/resume said services is the goal and CM has initiated and will follow for dc planning. Mary Grace will be going on vacation beginning Tuesday12/15/22; Ailyn @ [phone] will be staying with Patient after dc and providing him transportation home.Patient has received Moderna/Covid vax 5 and his PCP is Dr. Usha Blancas.
[2022-12-13] MEDS: Erythromycin Base 0.5% Oph Oin 1 GM TUBE 1 CM EYE-LEFT ×2 (09:02→22:23)
[2022-12-13] MEDS: Acetaminophen 325 MG TABLET 650 MG PO (09:02)
[2022-12-13] MEDS: Furosemide 20 MG TABLET 10 MG PO (11:59)
[2022-12-13] MEDS: Omeprazole 20 MG CAPSULE.DR PO ×2 (12:00→17:46)
[2022-12-13] MEDS: Escitalopram Oxalate 10 MG TABLET PO (12:00)
[2022-12-13] MEDS: Tamsulosin HCL 0.4 MG CAPSULE PO ×2 (12:00→22:23)
[2022-12-13] MEDS: Multivitamin TABLET 1 TAB PO (12:00)
[2022-12-13] MEDS: Finasteride 5 MG TABLET PO (12:00)
--- NOTE | 2022-12-13 12:26 | P.PNIM_ITS ---
Subjective Subjective Date of Service: 12/13/22 Interval History: sepsis sec to uti Review of Systems denies any chest pain or shortness of breath or abdominal pain or nausea vomiting Had some suprapubic discomfort. Physical Exam Vital Signs: Vital Signs: Last Vital Signs Temp 98.5 F 12/13/22 07:34 Pulse 71 12/13/22 07:34 Resp 20 12/13/22 07:34 BP 134/62 12/13/22 07:34 Pulse Ox 97 12/13/22 07:34 O2 Del Method 12/13/22 07:34 BMI result Body Mass Index 22.8 Appearance: Alert.? Oriented X3.? not in distress.? Eyes: cvs: rrr, [id number] . res: clear to auscultation ,no rhonchii or wheezing abd: no rebound or guarding ,nt, bs present. ext pulses present , no cyanosis . neuro: axo3 , nonfocal. Objective Data Active Medications Acetaminophen (Acetaminophen 325 Mg Tablet) 650 mg PO Q6H PRN PRN Reason: Pain, Mild (Pain Scale 1-3) Last Admin: 12/13/22 09:02 Dose: 650 mg Documented By: SHAWN Docusate Sodium (Docusate Sodium 100 Mg Capsule) 100 mg PO DAILY PRN PRN Reason: Constipation Enoxaparin Sodium (Enoxaparin Sodium 40 Mg/0.4 Ml Syringe) 40 mg SUBCUT Q24H [facility] Last Admin: 12/13/22 00:48 Dose: 40 mg Documented By: KULWINDER Erythromycin (Erythromycin Base 0.5% Oph Oin 1 Gm Tube) 1 cm EYE-LEFT BID [facility] Last Admin: 12/13/22 11:17 Dose: Not Given Documented By: SHAWN Non-Admin Reason: given at 0600 Escitalopram Oxalate (Escitalopram Oxalate 10 Mg Tablet) 10 mg PO DAILY [facility] Last Admin: 12/13/22 12:00 Dose: 10 mg Documented By: SHAWN Finasteride (Finasteride 5 Mg Tablet) 5 mg PO DAILY [facility] Last Admin: 12/13/22 12:01 Dose: Not Given Documented By: SHAWN Non-Admin Reason: first dose given now Furosemide (Furosemide 20 Mg Tablet) 10 mg PO DAILY [facility]; Protocol Last Admin: 12/13/22 11:59 Dose: 10 mg Documented By: SHAWN Ceftriaxone Sodium 1 gm/ (Sodium Chloride) 50 mls @ 100 mls/hr IV Q24H [facility] Multivitamins/Vitamin C (Multivitamin Tablet) 1 tab PO DAILY [facility] Last Admin: 12/13/22 12:01 Dose: Not Given Documented By: SHAWN Non-Admin Reason: first dose given now Omeprazole (Omeprazole 20 Mg Capsule.) 20 mg PO BID@0630,1630 [facility] Last Admin: 12/13/22 12:00 Dose: 20 mg Documented By: SHAWN Ondansetron HCl (Ondansetron Hcl 4 Mg/2 Ml Vial) 4 mg IVPUSH Q8H PRN PRN Reason: Nausea and Vomiting Last Admin: 12/13/22 02:53 Dose: 4 mg Documented By: SHELBIE Sodium Chloride (0.9 % Sodium Chloride Flush 3 Ml Syringe) 3 ml IVFLUSH QSHIFT [facility] Last Admin: 12/13/22 09:02 Dose: 3 ml Documented By: SHAWN Tamsulosin HCl (Tamsulosin Hcl 0.4 Mg Capsule) 0.4 mg PO BID [facility] Last Admin: 12/13/22 12:00 Dose: 0.4 mg Documented By: SHAWN Labs 12/13/22 05:32 12/13/22 05:32 Labs: Laboratory Results - last 24 hr 12/12/22 12/12/22 12/12/22 18:35 18:35 18:35 MCV 85.9 MCH 28.9 MCHC 33.6 RDW 13.2 Plt Count 143 L MPV 9.3 L Immature Gran % (Auto) 0.3 Neut % (Auto) 86.5 H Lymph % (Auto) 8.1 L [place] % (Auto) 4.3 Eos % (Auto) 0.3 Baso % (Auto) 0.5 Lymph # (Auto) 0.5 L [place] # (Auto) 0.3 Eos # (Auto) 0.0 Baso # (Auto) 0.0 Abs Immat Gran (auto) 0.02 Absolute Neuts (auto) 5.6 Absolute Nucleated RBC 0.000 Nucleated RBC % (auto) 0.0 Smear Tech's Comments PT INR Anion Gap 13 Estim Creat Clear Calc 95.6 Estimated GFR > 60 Random Glucose 106 Lactic Acid Calcium 8.5 Magnesium 1.5 L Total Bilirubin 0.4 Direct Bilirubin < 0.2 AST 14 ALT 12 Alkaline Phosphatase 62 Troponin I High Sens 9.4 Total Protein 5.9 L Albumin 3.6 Lipase 16 Urine Color Urine Appearance Urine pH Ur Specific [place] Urine Protein Urine Glucose (UA) Urine Ketones Urine Blood Urine Nitrite Ur Leukocyte Esterase Urine RBC Urine WBC Ur Squamous Epith Cells Urine Bacteria Hyaline Casts COVID-19 ([facility]) COVID-19 Clin Com Influenza Type A (JUAN PABLO) Influenza Type B (JUAN PABLO) Influenza A & B Note 12/12/22 12/12/22 12/12/22 18:35 18:35 18:35 MCV MCH MCHC RDW Plt Count MPV Immature Gran % (Auto) Neut % (Auto) Lymph % (Auto) [place] % (Auto) Eos % (Auto) Baso % (Auto) Lymph # (Auto) [place] # (Auto) Eos # (Auto) Baso # (Auto) Abs Immat Gran (auto) Absolute Neuts (auto) Absolute Nucleated RBC Nucleated RBC % (auto) Smear Tech's Comments PT 12.5 INR 1.1 Anion Gap Estim Creat Clear Calc Estimated GFR Random Glucose Lactic Acid 1.0 Calcium Magnesium Total Bilirubin Direct Bilirubin AST ALT Alkaline Phosphatase Troponin I High Sens Total Protein Albumin Lipase Urine Color Urine Appearance Urine pH Ur Specific [place] Urine Protein Urine Glucose (UA) Urine Ketones Urine Blood Urine Nitrite Ur Leukocyte Esterase Urine RBC Urine WBC Ur Squamous Epith Cells Urine Bacteria Hyaline Casts COVID-19 ([facility]) Negative COVID-19 Clin Com See Note Influenza Type A (JUAN PABLO) Influenza Type B ([facility]UAN PABLO) Influenza A & B Note 12/12/22 12/12/22 12/13/22 18:35 21:22 05:32 MCV 86.3 MCH 29.9 MCHC 34.6 RDW 13.2 Plt Count 110 L MPV 9.2 L Immature Gran % (Auto) 0.6 H Neut % (Auto) 90.4 H Lymph % (Auto) 5.7 L [place] % (Auto) 3.1 Eos % (Auto) 0.0 Baso % (Auto) 0.2 Lymph # (Auto) 0.3 L [place] # (Auto) 0.2 Eos # (Auto) 0.0 Baso # (Auto) 0.0 Abs Immat Gran (auto) 0.03 Absolute Neuts (auto) 4.4 Absolute Nucleated RBC 0.000 Nucleated RBC % (auto) 0.0 Smear Tech's Comments VERIFIED PT INR Anion Gap Estim Creat Clear Calc Estimated GFR Random Glucose Lactic Acid Calcium Magnesium Total Bilirubin Direct Bilirubin AST ALT Alkaline Phosphatase Troponin I High Sens Total Protein Albumin Lipase Urine Color Yellow Urine Appearance Cloudy Urine pH 6.0 Ur Specific [place] 1.020 Urine Protein Negative Urine Glucose (UA) Negative Urine Ketones Negative Urine Blood Trace H Urine Nitrite Negative Ur Leukocyte Esterase Moderate (2+) H Urine RBC >20 H Urine WBC >50 H Ur Squamous Epith Cells 0-2 Urine Bacteria 4+ Hyaline Casts 0-2 COVID-19 ([facility]) COVID-19 Clin Com Influenza Type A (JUAN PABLO) Negative Influenza Type B (JUAN PABLO) Negative Influenza A & B Note See Note 12/13/22 05:32 MCV MCH MCHC RDW Plt Count MPV Immature Gran % (Auto) Neut % (Auto) Lymph % (Auto) [place] % (Auto) Eos % (Auto) Baso % (Auto) Lymph # (Auto) [place] # (Auto) Eos # (Auto) Baso # (Auto) Abs Immat Gran (auto) Absolute Neuts (auto) Absolute Nucleated RBC Nucleated RBC % (auto) Smear Tech's Comments PT INR Anion Gap 12 Estim Creat Clear Calc 103.8 Estimated GFR > 60 Random Glucose 109 Lactic Acid Calcium 8.2 L Magnesium 1.7 Total Bilirubin Direct Bilirubin AST ALT Alkaline Phosphatase Troponin I High Sens Total Protein Albumin Lipase Urine Color Urine Appearance Urine pH Ur Specific [place] Urine Protein Urine Glucose (UA) Urine Ketones Urine Blood Urine Nitrite Ur Leukocyte Esterase Urine RBC Urine WBC Ur Squamous Epith Cells Urine Bacteria Hyaline Casts COVID-19 ([facility]) COVID-19 Clin Com Influenza Type A (JUAN PABLO) Influenza Type B (JUAN PABLO) Influenza A & B Note Microbiology Microbiology Results: Microbiology 12/12/22 Unknown Urine Culture - Preliminary Urine clean catch - Urine frank top Culture in progress. Assessment and Plan (1) Left conjunctivitis: Status: Acute (2) Sepsis: Status: Acute (3) Acute UTI: Status: Acute Plan 77-year-old male with past medical history of hypertension, intellectual disability, presents the hospital with tachycardia found to have sepsis secondary to UTI ? sepsis-?possible sec to secondary to UTI, chest x-ray shows no acute process, abdominal CT negative -? will treat with IV antibiotics -? follow blood cultures ? UTI -? likely source of sepsis -? positive UA, symptomatic -? will treat with IV antibiotics -? follow cultures ? left eye conjunctivitis -? will be on antibiotics as above, will add erythromycin? eye? ointment -? monitor resolution ?patient's med recs are being done currently, and resume his home medications ot [facility] ?DVT prophylaxis: Lovenox ? inaptient need : treatment of sepsis with IV antibiotics, moniter blood cultures,patient for further management and monitoring Time Spent With Patient Time: Total time managing care of this patient today ____ minutes. Quality Stroke Does the patient have a stroke diagnosis?: No VTE Prior VTE?: No VTE Risk Level:: Medical - moderate - high VTE Device Contraindication: Treatment Not Indicated VTE Drug Contraindication: N/A - Med Ordered
[2022-12-13 15:25] VITALS: BP 139/59; PULSE 69; RESP 20; TEMP 36.6; O2SAT 97
[2022-12-13] MEDS: Magnesium Oxide 400 MG TABLET PO (17:46)
[2022-12-13] MEDS: cefTRIAXone sodium 1 GM in 0.9 % Sodium Chloride 50 ML IV (17:47)
[2022-12-13 19:33] VITALS: BP 125/63; PULSE 87; RESP 16; TEMP 37; O2SAT 98
[2022-12-14 03:04] VITALS: BP 137/70; PULSE 62; RESP 16; TEMP 36.5; O2SAT 97
[2022-12-14] MEDS: Omeprazole 20 MG CAPSULE.DR PO ×2 (05:49→17:39)
[2022-12-14 08:00] VITALS: BP 141/67; PULSE 75; RESP 20; TEMP 36.3; O2SAT 96
--- NOTE | 2022-12-14 08:07 | P.PNIM_ITS ---
Subjective Subjective Date of Service: 12/14/22 Interval History: sepsis /uti,? possible bacteremia Review of Systems denies any new c/o no fevers Physical Exam Vital Signs: Vital Signs: Last Vital Signs Temp 97.7 F 12/14/22 03:04 Pulse 62 12/14/22 03:04 Resp 16 12/14/22 03:04 BP 137/70 12/14/22 03:04 Pulse Ox 97 12/14/22 03:04 O2 Del Method 12/14/22 03:04 BMI result Body Mass Index 22.8 Appearance: Alert.? Oriented X3.? not in distress.? cvs: rrr, [id number] . res: clear to auscultation ,no rhonchii or wheezing abd: no rebound or guarding ,nt, bs present. ext pulses present , no cyanosis . neuro: axo3 , nonfocal. Objective Data Active Medications Acetaminophen (Acetaminophen 325 Mg Tablet) 650 mg PO Q6H PRN PRN Reason: Pain, Mild (Pain Scale 1-3) Last Admin: 12/13/22 09:02 Dose: 650 mg Documented By: SHAWN Docusate Sodium (Docusate Sodium 100 Mg Capsule) 100 mg PO DAILY PRN PRN Reason: Constipation Enoxaparin Sodium (Enoxaparin Sodium 40 Mg/0.4 Ml Syringe) 40 mg SUBCUT Q24H [facility] Last Admin: 12/13/22 22:23 Dose: 40 mg Documented By: COTEMA Erythromycin (Erythromycin Base 0.5% Oph Oin 1 Gm Tube) 1 cm EYE-LEFT BID [facility] Last Admin: 12/13/22 22:23 Dose: 1 cm Documented By: RYANEMA Escitalopram Oxalate (Escitalopram Oxalate 10 Mg Tablet) 10 mg PO DAILY [facility] Last Admin: 12/13/22 12:00 Dose: 10 mg Documented By: SHAWN Finasteride (Finasteride 5 Mg Tablet) 5 mg PO DAILY [facility] Last Admin: 12/13/22 12:01 Dose: Not Given Documented By: SHAWN Non-Admin Reason: first dose given now Furosemide (Furosemide 20 Mg Tablet) 10 mg PO DAILY [facility]; Protocol Last Admin: 12/13/22 11:59 Dose: 10 mg Documented By: SHAWN Ceftriaxone Sodium 1 gm/ (Sodium Chloride) 50 mls @ 100 mls/hr IV Q24H [facility] Last Infusion: 12/13/22 18:20 Dose: 0 mls/hr Documented By: SHAWN Magnesium Oxide (Magnesium Oxide 400 Mg Tablet) 400 mg PO BIDPC [facility] Last Admin: 12/13/22 17:46 Dose: 400 mg Documented By: SHAWN Multivitamins/Vitamin C (Multivitamin Tablet) 1 tab PO DAILY [facility] Last Admin: 12/13/22 12:01 Dose: Not Given Documented By: SHAWN Non-Admin Reason: first dose given now Omeprazole (Omeprazole 20 Mg Capsule.) 20 mg PO BID@0630,1630 [facility] Last Admin: 12/14/22 05:49 Dose: 20 mg Documented By: COTEMA Ondansetron HCl (Ondansetron Hcl 4 Mg/2 Ml Vial) 4 mg IVPUSH Q8H PRN PRN Reason: Nausea and Vomiting Last Admin: 12/13/22 02:53 Dose: 4 mg Documented By: N-FARNE Sodium Chloride (0.9 % Sodium Chloride Flush 3 Ml Syringe) 3 ml IVFLUSH QSHIFT [facility] Last Admin: 12/13/22 22:36 Dose: 3 ml Documented By: COTEMA Tamsulosin HCl (Tamsulosin Hcl 0.4 Mg Capsule) 0.4 mg PO BID [facility] Last Admin: 12/13/22 22:23 Dose: 0.4 mg Documented By: COTEMA Triamcinolone Acetonide (Triamcinolone Acet 0.1 % Cream 15 Gm Tube) 1 appl TOPICAL DAILY [facility]; Protocol Last Admin: 12/13/22 15:40 Dose: Not Given Documented By: SHAWN Non-Admin Reason: not available at this time Labs 12/13/22 05:32 12/13/22 05:32 Microbiology Microbiology Results: Microbiology 12/12/22 18:44 Blood Culture - Preliminary Blood - Venous No growth after 24 hours. 12/12/22 18:35 Blood Culture - Preliminary Blood - Venous Prelim: GPC Gram Stain only 12/12/22 Unknown Urine Culture - Preliminary Urine clean catch - Urine frank top Culture in progress. Assessment and Plan (1) Left conjunctivitis: Status: Acute (2) Sepsis: Status: Acute (3) Acute UTI: Status: Acute (4) Bacteremia: Status: Acute (5) Thrombocytopenia: Status: Acute Plan Hospital day:3 77-year-old male with past medical history of hypertension, intellectual disability, presents the hospital with tachycardia found to have sepsis secondary to UTI 1.sepsis with possible bacteremia -?possible sec to secondary to UTI. chest x-ray shows no acute process, abdominal CT negative No fever or leukocytosis Blood culture 1/2: Grew Gram-positive cocci in clusters ,also Gram-positive rods Will add vancomycin, Vanco trough, pharmacist consult Id evaluation also added. ?2. UTI-? likely source of sepsis positive UA, symptomatic will treat with IV antibiotics follow cultures-mixed bacterial yareli cultures ? 3. left eye conjunctivitis will be on antibiotics as above, will add erythromycin? eye? ointment ? monitor resolution 4.mild thrombocytopenia:mild trendin slightly trending down posible dilutional(received fluids in ed ),? antibiotics contributin not due to sepsis no brusin or kelly bleedin moniter cbc -if further worsenin consider further wokrup,also may need change antibiotics . ?DVT prophylaxis: mech devices ,off lovenox as above. ? inaptient need : treatment of sepsis with possible -bacteremia IV antibiotics, ,patient for further management and monitoring-renal function/elcterolytes,vanco trough moniterin Time Spent With Patient Time: Total time managing care of this patient today ____ minutes. Quality Stroke Does the patient have a stroke diagnosis?: No VTE Prior VTE?: No VTE Risk Level:: Medical - moderate - high VTE Device Contraindication: Treatment Not Indicated VTE Drug Contraindication: N/A - Med Ordered
[2022-12-14] MEDS: Escitalopram Oxalate 10 MG TABLET PO (10:34)
[2022-12-14] MEDS: Multivitamin TABLET 1 TAB PO (10:34)
[2022-12-14] MEDS: Tamsulosin HCL 0.4 MG CAPSULE PO ×2 (10:34→21:50)
[2022-12-14] MEDS: Erythromycin Base 0.5% Oph Oin 1 GM TUBE 1 CM EYE-LEFT ×2 (10:35→21:50)
[2022-12-14] MEDS: Finasteride 5 MG TABLET PO (10:35)
[2022-12-14] MEDS: Magnesium Oxide 400 MG TABLET PO ×2 (10:35→17:38)
[2022-12-14] MEDS: 0.9 % Sodium Chloride Flush 3 ML SYRINGE IVFLUSH ×2 (10:35→14:35)
[2022-12-14] MEDS: Furosemide 20 MG TABLET 10 MG PO (10:35)
[2022-12-14 11:32] VITALS: PULSE 75; O2SAT 96
[2022-12-14] MEDS: Triamcinolone Acet 0.1 % Cream 15 GM TUBE 1 APPL TOPICAL (14:35)
--- NOTE | 2022-12-14 15:20 | P.CNID_ITS ---
History of Present Illness Data of Consult Service Date: 12/14/22 Requesting physician: Giorgio Apple Primary Care Provider: Unknown Physician HPI Reason for consult: sepsis He presents with temperature to 102.7 and lethargy for a day. He has complaints of vague abdominal discomfort. He has intellectual challenges but can say has discomfort lower abdominal area and CT scan negative. Review of Systems Review of Systems: Yes Unobtainable due to mental condition PMFSH Past Medical History Medical History Hypertension Intellectual disability Social History Social History Household Members: Spouse Housing: House Do you presently have visiting nurse or other home services: Yes Alcohol intake: never Patient Tobacco Use Status: Never used Tobacco Smoked in Last 30 Days: No Use of substances other than those prescribed or required for medical reasons: No Currently Displaying Signs/Symptoms of Drug Intoxication Withdrawal: No Any prior treatment program specific to substance use: No Have you been hit, kicked, punched, or otherwise hurt by someone within the past year? If so, by whom?: No Do you feel safe in your current relationship?: Yes Is there a partner from a previous relationship who is making you feel unsafe now?: No Are you made to feel afraid or neglected: No Advance Directives: No Advance Directives Information Provided: No Do you have thoughts of harming others: None Do you have a plan to hurt others: No Plan Recently lost weight without trying: No Eating poorly because of decreased appetite: No Nutrition Risks: No Nutritional Risk Poor oral hygiene: No service: No Current occupational status: disabled Meds Allergies Allergy/AdvReac Type Severity Reaction Status Date / Time No Known Allergies Allergy Unverified 12/12/22 17:32 [No Known Allergies*] Active Medications: Current Medications Acetaminophen (Acetaminophen 325 Mg Tablet) 650 mg PO Q6H PRN PRN Reason: Pain, Mild (Pain Scale 1-3) Last Admin: 12/13/22 09:02 Dose: 650 mg Docusate Sodium (Docusate Sodium 100 Mg Capsule) 100 mg PO DAILY PRN PRN Reason: Constipation Erythromycin (Erythromycin Base 0.5% Oph Oin 1 Gm Tube) 1 cm EYE-LEFT BID [facility] Last Admin: 12/14/22 10:35 Dose: 1 cm Escitalopram Oxalate (Escitalopram Oxalate 10 Mg Tablet) 10 mg PO DAILY [facility] Last Admin: 12/14/22 10:34 Dose: 10 mg Finasteride (Finasteride 5 Mg Tablet) 5 mg PO DAILY [facility] Last Admin: 12/14/22 10:35 Dose: 5 mg Furosemide (Furosemide 20 Mg Tablet) 10 mg PO DAILY [facility]; Protocol Last Admin: 12/14/22 10:35 Dose: 10 mg Ceftriaxone Sodium 1 gm/ (Sodium Chloride) 50 mls @ 100 mls/hr IV Q24H [facility] Last Infusion: 12/13/22 18:20 Dose: Infused Vancomycin HCl 1,500 mg/ (Sodium Chloride) 500 mls @ 333.333 mls/hr IV Q24H [facility] Magnesium Oxide (Magnesium Oxide 400 Mg Tablet) 400 mg PO BIDPC [facility] Last Admin: 12/14/22 10:35 Dose: 400 mg Multivitamins/Vitamin C (Multivitamin Tablet) 1 tab PO DAILY [facility] Last Admin: 12/14/22 10:34 Dose: 1 tab Omeprazole (Omeprazole 20 Mg Capsule.) 20 mg PO BID@0630,1630 [facility] Last Admin: 12/14/22 05:49 Dose: 20 mg Ondansetron HCl (Ondansetron Hcl 4 Mg/2 Ml Vial) 4 mg IVPUSH Q8H PRN PRN Reason: Nausea and Vomiting Last Admin: 12/13/22 02:53 Dose: 4 mg Pharmacy Consult (Consult Rx Vancomycin Dosing) 1 each MISCELLANE DAILY PRN PRN Reason: Consult order Sodium Chloride (0.9 % Sodium Chloride Flush 3 Ml Syringe) 3 ml IVFLUSH QSHIFT [facility] Last Admin: 12/14/22 14:35 Dose: 3 ml Tamsulosin HCl (Tamsulosin Hcl 0.4 Mg Capsule) 0.4 mg PO BID [facility] Last Admin: 12/14/22 10:34 Dose: 0.4 mg Triamcinolone Acetonide (Triamcinolone Acet 0.1 % Cream 15 Gm Tube) 1 appl T OPICAL DAILY [facility]; Protocol Last Admin: 12/14/22 14:35 Dose: 1 appl Home Medications Medication Instructions Recorded Confirmed Last Taken Type acetaminophen 325 mg tablet 1 tab PO Q6H PRN fever or pain 12/13/22 12/13/22 Unknown History citalopram 20 mg tablet 1 tab PO DAILY 12/13/22 12/13/22 Unknown History finasteride 5 mg tablet 1 tab PO QAM 12/13/22 12/13/22 Unknown History furosemide 20 mg tablet 10 mg PO DAILY 12/13/22 12/13/22 Unknown History multivitamin 1 tab PO QAM 12/13/22 12/13/22 Unknown History omeprazole 20 mg capsule,delayed 1 cap PO BID 12/13/22 12/13/22 Unknown History release tamsulosin 0.4 mg capsule 1 cap PO BID 12/13/22 12/13/22 Unknown History triamcinolone acetonide 1 appl topical DAILY PRN Rash 12/13/22 12/13/22 Unknown History triamcinolone acetonide 0.1 % 1 appl topical DAILY 12/13/22 12/13/22 Unknown History topical cream Physical Exam 2 Vital Signs: Vital Signs: Last Vital Signs Temp 97.3 F 12/14/22 08:00 Pulse 75 12/14/22 11:32 Resp 20 12/14/22 08:00 BP 141/67 H 12/14/22 08:00 Pulse Ox 96 12/14/22 11:32 O2 Del Method 12/14/22 08:00 BMI result Body Mass Index 22.8 Const: General: cooperative HEENT: Head: Yes normal to inspection Face and sinus: Yes normal facial exam Mouth: Normal oral and palatal mucosa present Teeth and gingiva: dentition normal Eyes: General: appearance normal, both eyes and all related structures Pupils: Equal, round and reactive pupils present Resp: Effort & Inspection: normal respiratory effort Cardio: Rate: regular rate Rhythm: regular rhythm GI: Palpation (GI): Soft to palpation and nontender : General: Yes no CVA tenderness Back/Spine/Pelvis: Back: no CVA tenderness Skin: General skin exam: no rashes or lesions noted Neuro: General: moves all extremities Cranial nerves: Yes Equal, round and reactive pupils present Extrem: General: Yes normal to inspection Psych: Other: quiet alert but cant communicate Results Labs 12/13/22 05:32 12/13/22 05:32 Microbiology Microbiology Results: Microbiology 12/12/22 18:35 Blood - Venous Blood Culture - Preliminary Prelim: GPC Gram Stain only Prelim: GPR Gram Stain only 12/12/22 Unknown Urine clean catch - Urine frank top Urine Culture - Final 02/12/23 18:44 Blood - Venous Blood Culture - Preliminary No growth after 24 hours. Assessment and Plan (1) Thrombocytopenia: Status: Acute (2) Bacteremia: Status: Acute Bacteremia may be real or contaminant. He may have viral syndrome. He has thrombocytopenia ?due to illness or antibiotics (Ceftriaxone) Plan Continue Ceftriaxone and Vancomycin for now Await cultures. He will be able to take po Ceftin for 10 days if strep UTI. Time Spent With Patient Time: Total time managing care of this patient today ____ minutes.
[2022-12-14 16:00] VITALS: BP 118/86; PULSE 95; RESP 15; TEMP 36.1; O2SAT 97
--- NOTE | 2022-12-14 16:52 | PC.NURSE ---
Pt's primary caregiver is leaving on vacation 12/15. Ailyn Her will be covering. Primary caregiver Mary Grace suggested the use of ailyn's personal phone number as the primary number to call: [phone]
[2022-12-14 20:00] VITALS: BP 124/56; PULSE 72; RESP 15; TEMP 36.5; O2SAT 97
[2022-12-14] MEDS: cefTRIAXone sodium 1 GM in 0.9 % Sodium Chloride 50 ML IV (21:44)
[2022-12-15] VITALS (7 sets, daily range): BP systolic 105–140; BP diastolic 54–72; PULSE 68–80; RESP 14–18; TEMP 36.6–36.8; O2SAT 95–98
[2022-12-15] MEDS: 0.9 % Sodium Chloride Flush 3 ML SYRINGE IVFLUSH ×4 (00:21→19:36)
[2022-12-15] MEDS: Omeprazole 20 MG CAPSULE.DR PO ×2 (06:21→15:26)
[2022-12-15 07:54] LABS: Hematocrit 34.5 % (42.0-52.0); Hemoglobin 11.6 g/dl (14.0-18.0); Mean Corpuscular HGB Conc 33.6 g/dl (31.0-36.0); Mean Corpuscular Hemoglobin 29.3 pg (27.0-33.0); Mean Corpuscular Volume 87.1 fL (80.0-98.0); Platelet Count 104 X10*3/uL (160-400); Red Blood Count 3.96 X10*6/uL (4.60-5.80); Red Cell Distribution Width 13.4 % (11.0-16.0); White Blood Count 5.1 X10*3/uL (4.8-10.8)
[2022-12-15] MEDS: Finasteride 5 MG TABLET PO (09:18)
[2022-12-15] MEDS: Escitalopram Oxalate 10 MG TABLET PO (09:18)
[2022-12-15] MEDS: Tamsulosin HCL 0.4 MG CAPSULE PO ×2 (09:18→19:32)
[2022-12-15] MEDS: Furosemide 20 MG TABLET 10 MG PO (09:18)
[2022-12-15] MEDS: Magnesium Oxide 400 MG TABLET PO ×2 (09:18→15:26)
[2022-12-15] MEDS: Multivitamin TABLET 1 TAB PO (09:18)
[2022-12-15] MEDS: Erythromycin Base 0.5% Oph Oin 1 GM TUBE 1 CM EYE-LEFT ×2 (09:18→19:32)
[2022-12-15] MEDS: Triamcinolone Acet 0.1 % Cream 15 GM TUBE 1 APPL TOPICAL (09:19)
[2022-12-15 09:51] LABS: Creatinine Clr Calc Pharmacy 108.7; Estimated Glomerular Filt Rate > 60
--- NOTE | 2022-12-15 11:31 | MHC.CM.PN ---
WALTER spoke with both Mary Grace/Shared Living Provider and Ailyn @ [phone] (covering for Mary Grace while she is on vacation, beginning 12/15/22); the new plan is for STR and Ailyn has agreed to a SNF search. CM will follow.
--- NOTE | 2022-12-15 13:06 | HO.PM.IMPN ---
Subjective Subjective Date of Service: 12/15/22 Interval History: sepsis /uti,? possible bacteremia Review of Systems denies any new c/o no fevers Physical Exam Vital Signs: Vital Signs: Last Vital Signs Temp 98.0 F 12/15/22 11:01 Pulse 71 12/15/22 11:01 Resp 18 12/15/22 11:01 BP 105/54 L 12/15/22 11:01 Pulse Ox 95 12/15/22 11:01 O2 Del Method 12/15/22 11:01 BMI result Body Mass Index 22.8 Appearance: Alert oriented , seems at his baseline( staff checked with medical care evaluation specialist yesterday) cvs: rrr, [id number] . res: clear to auscultation ,no rhonchii or wheezing abd: no rebound or guarding ,nt, bs present. ext pulses present , no cyanosis . neuro: moves allext. Objective Data Active Medications Acetaminophen (Acetaminophen 325 Mg Tablet) 650 mg PO Q6H PRN PRN Reason: Pain, Mild (Pain Scale 1-3) Last Admin: 12/13/22 09:02 Dose: 650 mg Documented By: SHAWN Docusate Sodium (Docusate Sodium 100 Mg Capsule) 100 mg PO DAILY PRN PRN Reason: Constipation Erythromycin (Erythromycin Base 0.5% Oph Oin 1 Gm Tube) 1 cm EYE-LEFT BID [facility] Last Admin: 12/15/22 09:18 Dose: 1 cm Documented By: KAT Escitalopram Oxalate (Escitalopram Oxalate 10 Mg Tablet) 10 mg PO DAILY [facility] Last Admin: 12/15/22 09:18 Dose: 10 mg Documented By: KAT Finasteride (Finasteride 5 Mg Tablet) 5 mg PO DAILY [facility] Last Admin: 12/15/22 09:18 Dose: 5 mg Documented By: KAT Furosemide (Furosemide 20 Mg Tablet) 10 mg PO DAILY [facility]; Protocol Last Admin: 12/15/22 09:18 Dose: 10 mg Documented By: KAT Ceftriaxone Sodium 1 gm/ (Sodium Chloride) 50 mls @ 100 mls/hr IV Q24H [facility] Last Infusion: 12/14/22 22:57 Dose: 0 mls/hr Documented By: RAINA Vancomycin HCl 1,500 mg/ (Sodium Chloride) 500 mls @ 333.333 mls/hr IV Q24H [facility] Magnesium Oxide (Magnesium Oxide 400 Mg Tablet) 400 mg PO BIDPC [facility] Last Admin: 12/15/22 09:18 Dose: 400 mg Documented By: KAT Multivitamins/Vitamin C (Multivitamin Tablet) 1 tab PO DAILY [facility] Last Admin: 12/15/22 09:18 Dose: 1 tab Documented By: KAT Omeprazole (Omeprazole 20 Mg Capsule.) 20 mg PO BID@0630,1630 [facility] Last Admin: 12/15/22 06:21 Dose: 20 mg Documented By: RAINA Ondansetron HCl (Ondansetron Hcl 4 Mg/2 Ml Vial) 4 mg IVPUSH Q8H PRN PRN Reason: Nausea and Vomiting Last Admin: 12/13/22 02:53 Dose: 4 mg Documented By: SHELBIE Pharmacy Consult (Consult Rx Vancomycin Dosing) 1 each MISCELLANE DAILY PRN PRN Reason: Consult order Sodium Chloride (0.9 % Sodium Chloride Flush 3 Ml Syringe) [address] [facility] Last Admin: 12/15/22 09:25 Dose: 3 ml Documented By: KAT Tamsulosin HCl (Tamsulosin Hcl 0.4 Mg Capsule) 0.4 mg PO BID [facility] Last Admin: 12/15/22 09:18 Dose: 0.4 mg Documented By: KAT Triamcinolone Acetonide (Triamcinolone Acet 0.1 % Cream 15 Gm Tube) 1 appl TOPICAL DAILY [facility]; Protocol Last Admin: 12/15/22 09:19 Dose: 1 appl Documented By: KAT Labs 12/15/22 06:49 12/15/22 08:21 Labs: Laboratory Results - last 24 hr 12/15/22 12/15/22 06:49 08:21 MCV 87.1 MCH 29.3 MCHC 33.6 RDW 13.4 Plt Count 104 L MPV 10.0 Absolute Nucleated RBC 0.000 Nucleated RBC % (auto) 0.0 Estim Creat Clear Calc 108.7 Estimated GFR > 60 Microbiology Microbiology Results: Microbiology 12/12/22 18:35 Blood Culture - Preliminary Blood - Venous Prelim: GPC Gram Stain only Prelim: GPR Gram Stain only 12/12/22 18:44 Blood Culture - Preliminary Blood - Venous No growth after 48 hours. 12/12/22 Unknown Urine Culture - Final Urine clean catch - Urine frank top Assessment and Plan (1) Left conjunctivitis: Status: Acute (2) Sepsis: Status: Acute (3) Acute UTI: Status: Acute (4) Bacteremia: Status: Acute (5) Thrombocytopenia: Status: Acute Plan Hospital day:4 77-year-old male with past medical history of hypertension, intellectual disability, presents the hospital with tachycardia found to have sepsis secondary to UTI 1.sepsis with possible bacteremia -?possible sec to secondary to UTI. chest x-ray shows no acute process, abdominal CT negative No fever or leukocytosis Blood culture 1/2: Grew Gram-positive cocci in clusters ,also Gram-positive rods continue vancomycin/ceftriaxone day 2, Vanco trough, pharmacist consult Id evaluation also added. ?2. UTI-? likely source of sepsis positive UA, symptomatic will treat with IV antibiotics follow cultures-mixed bacterial yareli cultures ? 3. left eye conjunctivitis will be on antibiotics as above, will add erythromycin? eye? ointment ? monitor resolution 4.mild thrombocytopenia:mild trendin slightly trending down posible dilutional(received fluids in ed ),? antibiotics contributin not due to sepsis no brusin or kelly bleedin moniter cbc -if further worsenin consider further wokrup,also may need change antibiotics . ?DVT prophylaxis: mech devices ,off lovenox as above. ? inaptient need : treatment of sepsis with possible -bacteremia IV antibiotics, ,patient for further management and monitoring-renal function/elcterolytes,vanco trough moniterin Time Spent With Patient Time: Total time managing care of this patient today ____ minutes. Quality Stroke Does the patient have a stroke diagnosis?: No VTE Prior VTE?: No VTE Risk Level:: Medical - moderate - high VTE Device Contraindication: Treatment Not Indicated VTE Drug Contraindication: N/A - Med Ordered
--- NOTE | 2022-12-15 15:53 | PM.IDPN ---
Subjective Subjective Date of Service: 12/15/22 Critical Care Time (minutes): 15 Comment: he has no complaints Objective Data Labs 12/15/22 06:49 12/15/22 08:21 Labs: Laboratory Results - last 24 hr 12/15/22 12/15/22 06:49 08:21 WBC 5.1 RBC 3.96 L Hgb 11.6 L Hct 34.5 L MCV 87.1 MCH 29.3 MCHC 33.6 RDW 13.4 Plt Count 104 L MPV 10.0 Absolute Nucleated RBC 0.000 Nucleated RBC % (auto) 0.0 Creatinine 0.64 Estim Creat Clear Calc 108.7 Estimated GFR > 60 Microbiology Microbiology Results: Microbiology 12/12/22 18:35 Blood - Venous Blood Culture - Preliminary Prelim: GPC Gram Stain only Prelim: GPR Gram Stain only 12/12/22 18:44 Blood - Venous Blood Culture - Preliminary No growth after 48 hours. 12/12/22 Unknown Urine clean catch - Urine frank top Urine Culture - Final Physical Exam Vital Signs: Vital Signs: Last Vital Signs Temp 97.9 F 12/15/22 15:23 Pulse 72 12/15/22 15:23 Resp 17 12/15/22 15:23 BP 131/63 12/15/22 15:23 Pulse Ox 95 12/15/22 15:23 O2 Del Method 12/15/22 15:23 BMI result Body Mass Index 22.8 Const: General: cooperative HEENT: Head: Yes normal to inspection Mouth: Normal oral and palatal mucosa present Resp: Effort & Inspection: normal respiratory effort Cardio: Rate: regular rate Rhythm: regular rhythm GI: Palpation (GI): Soft to palpation and nontender Assessment and Plan Assessment and plan (1) Acute UTI: Problem details: There is no growth still on blood culture He probably has UTI Would stop Vancomycin. Finish antibiotics with po Ceftin 10 d total Status: Acute Time Spent With Patient Time: Total time managing care of this patient today ____ minutes.
[2022-12-15] MEDS: cefTRIAXone sodium 1 GM in 0.9 % Sodium Chloride 50 ML IV (18:30)
[2022-12-16] MEDS: Omeprazole 20 MG CAPSULE.DR PO ×2 (04:55→17:24)
[2022-12-16 06:00] VITALS: BMI 22.7
[2022-12-16 06:42] LABS: Hematocrit 33.8 % (42.0-52.0); Hemoglobin 11.5 g/dl (14.0-18.0); Mean Corpuscular Hemoglobin 29.2 pg (27.0-33.0); Mean Corpuscular Volume 85.8 fL (80.0-98.0); Mean Platelet Volume 9.8 fL (9.4-12.4); Platelet Count 117 X10*3/uL (160-400); Red Blood Count 3.94 X10*6/uL (4.60-5.80); Red Cell Distribution Width 13.2 % (11.0-16.0); White Blood Count 5.9 X10*3/uL (4.8-10.8)
[2022-12-16 06:56] LABS: Anion Gap 12 (12-20); Blood Urea Nitrogen 19 mg/dL (9-16); Calcium 8.4 mg/dL (8.4-10.2); Carbon Dioxide 24 mmol/L (22-29); Chloride 109 mmol/L (96-108); Creatinine Clr Calc Pharmacy 106.5; Estimated Glomerular Filt Rate > 60; Glucose Random 90 mg/dL (60-115); Potassium 3.9 mmol/L (3.3-5.1); Sodium 141 mmol/L (135-145)
[2022-12-16 07:42] VITALS: BP 129/60; PULSE 76; RESP 16; TEMP 36.5; O2SAT 99
[2022-12-16] MEDS: 0.9 % Sodium Chloride Flush 3 ML SYRINGE IVFLUSH ×3 (10:38→19:18)
[2022-12-16] MEDS: Magnesium Oxide 400 MG TABLET PO ×2 (10:39→17:24)
[2022-12-16] MEDS: Furosemide 20 MG TABLET 10 MG PO (10:39)
[2022-12-16] MEDS: Escitalopram Oxalate 10 MG TABLET PO (10:39)
[2022-12-16] MEDS: Tamsulosin HCL 0.4 MG CAPSULE PO ×2 (10:39→20:05)
[2022-12-16] MEDS: Finasteride 5 MG TABLET PO (10:40)
[2022-12-16] MEDS: Erythromycin Base 0.5% Oph Oin 1 GM TUBE 1 CM EYE-LEFT ×2 (10:40→20:05)
[2022-12-16] MEDS: Multivitamin TABLET 1 TAB PO (10:40)
[2022-12-16] MEDS: Triamcinolone Acet 0.1 % Cream 15 GM TUBE 1 APPL TOPICAL (10:42)
--- NOTE | 2022-12-16 13:12 | HO.PM.IMPN ---
Subjective Subjective Date of Service: 12/16/22 Interval History: seen and examined this morning follow up for UTI awake, alert, denies specific complaints with yes or no answers, following commands Review of Systems Review of Systems: Yes all other systems are reviewed and are negative Constitutional Constitutional: Denies chills and Denies fever(s) Cardiovascular Cardiovascular: Denies chest pain and Denies dyspnea Respiratory Respiratory: Denies dyspnea Gastrointestinal Gastrointestinal: Denies abdominal pain Physical Exam Vital Signs: Vital Signs: Last Vital Signs Temp 97.7 F 12/16/22 07:42 Pulse 76 12/16/22 07:42 Resp 16 12/16/22 07:42 BP 129/60 12/16/22 07:42 Pulse Ox 99 12/16/22 07:42 O2 Del Method 12/16/22 07:42 BMI result Body Mass Index 22.7 Const: General: alert and awake Nutritional Appearance: average body habitus Resp: Effort & Inspection: normal respiratory effort and able to speak in complete sentences Cardio: Rate: regular rate Heart sounds: S1 normal heart sound present and S2 normal heart sound present GI: Inspection: No distended Palpation (GI): Soft to palpation Neuro: Other: following commands, moving all extremities Extrem: General: Yes no pedal edema Objective Data Active Medications Acetaminophen (Acetaminophen 325 Mg Tablet) 650 mg PO Q6H PRN PRN Reason: Pain, Mild (Pain Scale 1-3) Last Admin: 12/13/22 09:02 Dose: 650 mg Documented By: SHAWN Docusate Sodium (Docusate Sodium 100 Mg Capsule) 100 mg PO DAILY PRN PRN Reason: Constipation Erythromycin (Erythromycin Base 0.5% Oph Oin 1 Gm Tube) 1 cm EYE-LEFT BID [facility] Last Admin: 12/16/22 10:40 Dose: 1 cm Documented By: ARASH Escitalopram Oxalate (Escitalopram Oxalate 10 Mg Tablet) 10 mg PO DAILY [facility] Last Admin: 12/16/22 10:39 Dose: 10 mg Documented By: ARASH Finasteride (Finasteride 5 Mg Tablet) 5 mg PO DAILY [facility] Last Admin: 12/16/22 10:40 Dose: 5 mg Documented By: ARASH Furosemide (Furosemide 20 Mg Tablet) 10 mg PO DAILY [facility]; Protocol Last Admin: 12/16/22 10:39 Dose: 10 mg Documented By: ARASH Ceftriaxone Sodium 1 gm/ (Sodium Chloride) 50 mls @ 100 mls/hr IV Q24H [facility] Last Infusion: 12/15/22 19:12 Dose: 0 mls/hr Documented By: SHELBIE Magnesium Oxide (Magnesium Oxide 400 Mg Tablet) 400 mg PO BIDPC [facility] Last Admin: 12/16/22 10:39 Dose: 400 mg Documented By: ARASH Multivitamins/Vitamin C (Multivitamin Tablet) 1 tab PO DAILY [facility] Last Admin: 12/16/22 10:40 Dose: 1 tab Documented By: ARASH Omeprazole (Omeprazole 20 Mg Capsule.) 20 mg PO BID@0630,1630 [facility] Last Admin: 12/16/22 04:55 Dose: 20 mg Documented By: SHELBIE Ondansetron HCl (Ondansetron Hcl 4 Mg/2 Ml Vial) 4 mg IVPUSH Q8H PRN PRN Reason: Nausea and Vomiting Last Admin: 12/13/22 02:53 Dose: 4 mg Documented By: SHELBIE Pharmacy Consult (Consult Rx Vancomycin Dosing) 1 each MISCELLANE DAILY PRN PRN Reason: Consult order Sodium Chloride (0.9 % Sodium Chloride Flush 3 Ml Syringe) 3 ml IVFLUSH QSHIFT [facility] Last Admin: 12/16/22 10:38 Dose: 3 ml Documented By: ARASH Tamsulosin HCl (Tamsulosin Hcl 0.4 Mg Capsule) 0.4 mg PO BID [facility] Last Admin: 12/16/22 10:39 Dose: 0.4 mg Documented By: ARASH Triamcinolone Acetonide (Triamcinolone Acet 0.1 % Cream 15 Gm Tube) 1 appl TOPICAL DAILY [facility]; Protocol Last Admin: 12/16/22 10:42 Dose: 1 appl Documented By: ARASH Labs 12/16/22 06:14 12/16/22 06:14 Labs: Laboratory Results - last 24 hr 12/16/22 12/16/22 12/16/22 06:14 06:14 06:14 MCV 85.8 MCH 29.2 MCHC 34.0 RDW 13.2 Plt Count 117 L MPV 9.8 Absolute Nucleated RBC 0.000 Nucleated RBC % (auto) 0.0 Anion Gap 12 Estim Creat Clear Calc Cancelled 106.5 Estimated GFR Cancelled > 60 Random Glucose 90 Calcium 8.4 Microbiology Microbiology Results: Microbiology 12/12/22 18:35 Blood Culture - Final Blood - Venous Streptococcus viridans group Corynebacterium species Assessment and Plan (1) Acute UTI: Status: Acute Plan This is a 77-year-old male with past medical history of hypertension, intellectual disability, presents the hospital with tachycardia found to have sepsis secondary to UTI sepsis with possible bacteremia -? secondary to UTI. chest x-ray shows no acute process, abdominal CT negative No fever or leukocytosis Blood culture 1/2: growing strep veridens group, cornebacterium sp continue ceftriaxone day 3, vanco d/c by ID ID following repeat blood cultures pending UTI-? likely source of sepsis positive UA, symptomatic continue IV abx as above follow cultures-mixed bacterial yareli cultures left eye conjunctivitis will be on antibiotics as above, will add erythromycin? eye?ointment monitor resolution mild thrombocytopenia: up slightly today not due to sepsis no bruising or kelly bleeding moniter cbc -if further worsening consider further workup ,also may need change antibiotics . DVT prophylaxis: mech devices ,off lovenox due to thrombocytopenia Attending - Dr. Edwards ? inpatient need : treatment of sepsis with possible - IV antibiotics, ,patient for further management and monitoring-renal function/elcterolytes,vanco trough monitoring Time Spent With Patient Time: Total time managing care of this patient today ____ minutes. Quality Stroke Does the patient have a stroke diagnosis?: No VTE Prior VTE?: No VTE Risk Level:: Medical - moderate - high VTE Device Contraindication: Treatment Not Indicated VTE Drug Contraindication: N/A - Med Ordered
--- NOTE | 2022-12-16 14:18 | MHC.CM.PN ---
CM returned a call to Shared Living Provider/Ailyn at [phone]; after visiting Patient, Ailyn feels that Patient can be managed at home and will not need STR. Patient is already active with [facility] and lives in an Adult Foster Care setting (CHRISTOPHER/Gisela is aware of and in agreement with the change in dc plan and dc is anticipated for tomorrow). [facility] Worker/Mariela @ [phone] is also asking to be notified of dc date/time. CM will follow.
[2022-12-16 14:31] LABS: Vancomycin Random < 2.0 mcg/mL (15-20)
[2022-12-16 14:51] VITALS: PULSE 84; O2SAT 98
[2022-12-16 15:48] VITALS: BP 141/65; PULSE 70; RESP 16; TEMP 36.3; O2SAT 99
[2022-12-16] MEDS: cefTRIAXone sodium 1 GM in 0.9 % Sodium Chloride 50 ML IV (19:18)
[2022-12-17] VITALS: BP 150/71; PULSE 71; RESP 18; TEMP 37; O2SAT 97
[2022-12-17] MEDS: Omeprazole 20 MG CAPSULE.DR PO (05:41)
[2022-12-17 06:00] VITALS: BMI 22.6
[2022-12-17 07:56] VITALS: BP 137/75; PULSE 73; RESP 14; TEMP 36.3; O2SAT 97
[2022-12-17 10:04] VITALS: BP 137/75; PULSE 73; O2SAT 97
[2022-12-17] MEDS: Furosemide 20 MG TABLET 10 MG PO (10:24)
[2022-12-17] MEDS: Magnesium Oxide 400 MG TABLET PO (10:24)
[2022-12-17] MEDS: Multivitamin TABLET 1 TAB PO (10:25)
[2022-12-17] MEDS: Tamsulosin HCL 0.4 MG CAPSULE PO (10:25)
[2022-12-17] MEDS: Escitalopram Oxalate 10 MG TABLET PO (10:25)
[2022-12-17] MEDS: Finasteride 5 MG TABLET PO (10:26)
[2022-12-17] MEDS: Erythromycin Base 0.5% Oph Oin 1 GM TUBE 1 CM EYE-LEFT (10:28)
[2022-12-17] MEDS: 0.9 % Sodium Chloride Flush 3 ML SYRINGE IVFLUSH (10:33)
[2022-12-17] MEDS: Triamcinolone Acet 0.1 % Cream 15 GM TUBE 1 APPL TOPICAL (10:35)
--- NOTE | 2022-12-17 12:13 | PM.DS ---
DS: Providers Provider Date of Service: 12/17/22 Date of admission: 12/12/22 23:49 Date of discharge: 12/17/22 Primary care physician: Unknown Physician Consults: 12/14/22 12:59 Consult to Infectious Diseases Routine Consulting Provider: Yanira Pérez Reason for consultation: bacteremia Has provider been notified: No Attending physician on discharge: Thong Edwards Discharging clinician: Gisela Rosales DS: Diagnosis Discharge Diagnosis (1) Acute UTI: Status: Acute DS: Summary Hospital Course Hospital Course: From H&P on day of admission this is a 77-year-old male with past medical history of intellectual disability,HTN brought in by his post acute care nurse practitioner due to tachycardia.? patient is alert, oriented to self and place and does answer yes or no questions but he is very soft-spoken, and straightening machine feeder is mostly answering for him.? She states that he was complaining of shaking, chills, she checked his vitals and found him to have a heart rate in the 120s.? She also states that last night he was pointing to his bladder and stating that he was hurting.? Patient himself reports urinary frequency, no dysuria or urgency. ? no fever but has chills, no abdominal pain no chest pain, no nausea or vomiting, no diarrhea constipation? But has soft stools, no urinary symptoms. straightening machine feeder also states that he has been having eye drainage in his left that is tacky, and appears to be eye infection.? Started the night prior. ?on arrival to the ED patient hemodynamically stable with a temperature of 102.7 degrees, heart rate of 104 Labs are significant for WBC count of 6.4, hemoglobin of 11.7, hematocrit 34.8, labs otherwise unremarkable, UA positive for leukocyte Estrace, WBC, and urine bacteria, chest x-ray shows chronic appearing changes similar to prior with no new acute superimposed process Abdominal pelvic CT shows no etiology for left lower quadrant pain, diverticulosis with no diverticulitis sepsis with possible bacteremia -? secondary to UTI. chest x-ray shows no acute process, abdominal CT negative. No fever or leukocytosis. Blood culture 1/2: growing strep veridens group, cornebacterium sp. contaminant per ID. Initially treated with IV ceftriaxone, will discharge with oral Ceftin to complete total 10 day course. repeat blood cultures are negative x 24 hours at time of discharge. left eye conjunctivitis. Treated with erythromycin ointment mild thrombocytopenia:no bruising or kelly bleeding. recommend outpatient follow up in 1-2 weeks to monitor platelet level low magnesium levels - started on oral magnesium replacement Time Spent with Patient Time attestation: Total time managing care of this patient today ____ minutes. Discharge coordination time: Greater than 30 minutes Quality: Safe Use of Opioids Does Pt have an Active Cancer Diagnosis on the Problem List?: No Quality: Stroke Does the patient have a stroke diagnosis?: No Physical Exam Vital Signs: Vital Signs: Last Vital Signs Temp 97.3 F 12/17/22 07:56 Pulse 73 12/17/22 10:04 Resp 14 12/17/22 07:56 BP 137/75 12/17/22 10:04 Pulse Ox 97 12/17/22 10:04 O2 Del Method 12/17/22 07:56 BMI result Body Mass Index 22.6 DS: Data Data Completed and Pending Labs on day of discharge: Laboratory Results - last 24 hr 12/16/22 14:07 Random Vancomycin < 2.0 L Preliminary micro results at discharge 12/12/22 18:44 Blood Culture - Preliminary Blood - Venous No growth after 48 hours. Discharge Plan Discharge Anticipated Discharge Date/Time: 12/17/22 13:23 Patient Disposition: Home Health Service Discharge Diagnosis: sepsis secondary to UTI thrombocytopenia Referrals: Physician,Unknown J [Primary Care Provider] - 1 Week Discharge Medications: New cefuroxime axetil 500 mg tablet 500 mg PO BID 5 Days Qty: 10 0RF magnesium oxide 400 mg (241.3 mg magnesium) Tablet 400 mg PO BIDPC 30 Days Qty: 60 0RF Continued acetaminophen 325 mg tablet 1 tab PO Q6H PRN (Reason: fever or pain) citalopram 20 mg tablet 1 tab PO DAILY tamsulosin 0.4 mg capsule 1 cap PO BID omeprazole 20 mg capsule,delayed release(DR/EC) 1 cap PO BID furosemide 20 mg tablet 10 mg PO DAILY finasteride 5 mg tablet 1 tab PO QAM multivitamin Tablet 1 tab PO QAM triamcinolone acetonide 1 appl topical DAILY PRN (Reason: Rash) triamcinolone acetonide 0.1 % Cream 1 appl TOPICAL DAILY Discharge Orders: Discharge Order (Routine); Ordered 12/17/22 Ordered By: Gisela Rosales Diet: Advance to usual diet Activity on Discharge: As tolerated Stand Alone Forms: Patient Portal Discharge page Care Plan Goals: see below Health Concerns: UTI low magnesium levels conjunctivitis- completed treatment low platelets Plan of Treatment: complete course of antibiotics as prescribed for UTI recommend repeat CBC in next 1-2 weeks to monitor platelet level - discuss with PCP oral magnesium replacement has been initiated due to low magnesium levels PT recommended short term rehab - per HCP, patient will return home with home PT Assessment: see discharge summary
--- NOTE | 2022-12-17 13:24 | P.F2F_ITS ---
Service Date Service Date: 12/17/22 Encounter Date of encounter: 12/17/22 Reasons for Services Signs and symptoms assessed: needs PT for strengthening, gait training Reason for physical therapy: home safety and mobility, therapeutic exercises, gait/transfer training and energy conservation MD Overseeing Care: Usha Blancas Homebound: Leaving the home is medically contraindicated at this time without the asist of a device and/or another person due th the listed conditions above and below. Reason homebound: unsteady gait / fall risk Certification: Based on the above findings, I certify that this patient is confined to the home and needs intermittent penitentiary care, physical therapy and/or speech therapy, or continues to need occupational therapy. The patient is under my care, and I have initiated the establishment of the plan of care. The patient will be followed by a physician who will periodically review the plan of care. Time Spent With Patient Time: Total time managing care of this patient today ____ minutes.
--- NOTE | 2022-12-17 13:51 | MHC.CM.PN ---
Patient has been medically clear for dc to home today with services. Patient is active with [facility], who has been notified of today's dc. DC Summary and face to face have been sent to [facility] via [facility] and faxed successfully to [phone], and uploaded into [email or web address] addressed at bedside with Brad and original was given to him and a copy has been placed on the chart.
--- NOTE | 2022-12-17 15:58 | MHC.CM.PN ---
CM informed [facility] Worker/Mariela @ [phone] that Brad is being dc to home today; Mariela was already aware.
== END 2022-12-17 16:08 | disposition home health service (06) | DRG 872 ==
LOC: HO.ED 22:53 → HO.EDOVER 23:54 → HO.IMC 12-13 00:18
PROVIDERS: Internal Medicine; Admitting Provider Internal Medicine; Emergency Provider Emergency Medicine; Visit Provider Physician Assistant Medical
DX: A41.9 Sepsis, unspecified organism (principal); N39.0 Urinary tract infection, site not specified; I10 Essential (primary) hypertension; D69.6 Thrombocytopenia, unspecified; H10.32 Unspecified acute conjunctivitis, left eye; E83.42 Hypomagnesemia; Z20.822 Contact with and (suspected) exposure to COVID-19; Z79.899 Other long term (current) drug therapy
CPT/HCPCS: 36415; 71045; 74177; 80048; 80076; 80202; 81001; 82565; 83605; 83690; 83735; 84484; 85025; 85027; 85610; 87040; 87086; 87205; 87502; 87635; 93005; 97110; 97116; 97162; 97530; 99285; J0696; J1650; J2405; J3370; J3475; Q9967

== ENCOUNTER 2023-06-07 12:51 | Outpatient (AMB) | payer MEDICARE, MEDICAID, SELFPAY ==
--- NOTE | 2023-06-07 13:49 | MHC.OFFWIV ---
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 Patient lives with his guest associate, guest associate reports that this patient had said that he had pain when he urinates that started on Tuesday, but he only reported the symptoms this morning. The guest associate states that he does get recurrent urinary tract infections, and does not report any changes in behavior, changes in p.o. intake, lethargy, weakness, confusion or fatigue. [facility] Medical History Hypertension Intellectual disability Social History Household Members: Spouse Housing: House Do you presently have visiting nurse or other home services: Yes Alcohol intake: never Patient Tobacco Use Status: Never used Tobacco service: No Current occupational status: disabled Review of Systems Const Details: Constitutional: No Fever, No Chills Cardiovascular: No Chest Pain, No SOB Respiratory: No Cough, No Dyspnea Gastrointestinal: No Nausea, No Vomiting, No Diarrhea, No abdominal Pain Genitourinary: Positive Dysuria, No Hematuria Musculoskeletal: No joint pain, No Myalgias, No Joint Swelling Skin: No Skin lacerations, No rash Neuro: No Weakness, No Numbness, No Paresthesias, No Dizziness, No Headache All systems reviewed & are unremarkable except as noted in HPI and below Physical Exam Vital Signs: Last Vital Signs Temp 98 F 06/07/23 14:01 Pulse 68 06/07/23 14:01 BP 102/50 L 06/07/23 14:01 Pulse Ox 97 06/07/23 14:01 Oxygen Delivery Method Room Air 06/07/23 14:01 Appearance: Alert. No acute distress. Eyes: Pupils equal, round and reactive to light. Neck: Normal inspection. Neck supple. CVS: Normal heart rate and rhythm. Pulses normal. Respiratory: No respiratory distress. Breath sounds normal. Abdomen: Soft and nontender. Skin: Skin warm and dry. Normal skin color. Normal skin turgor. Extremities: No lower extremity edema. Gait balanced with a walking device. Neuro: No motor deficit. No sensory deficit. Cranial nerves 2-12 intact. Results AMB Urinalysis, Automated UA Leukoctes 500 Lonnie/uL Last Edit by Jocelyne Moses, PRATEEK on 06/07/23 14:19 UA Nitrite Positive Last Edit by Jocelyne Moses, ACCOUNTANT MACHINE PROCESSING on 06/07/23 14:19 UA Urobilinogen 0.2 mg/dL Last Edit by Jocelyne Moses, ACCOUNTANT MACHINE PROCESSING on 06/07/23 14:19 UA Protein 15 mg/dL Last Edit by Jocelyne Moses, ACCOUNTANT MACHINE PROCESSING on 06/07/23 14:19 UA pH 6.0 Last Edit by Jocelyne Moses, ACCOUNTANT MACHINE PROCESSING on 06/07/23 14:19 UA Blood 10 Ted/uL Last Edit by Jocelyne Moses, ACCOUNTANT MACHINE PROCESSING on 06/07/23 14:19 UA Specific [place] 1.025 Last Edit by Jocelyne Moses, ACCOUNTANT MACHINE PROCESSING on 06/07/23 14:19 UA Ketone Negative Last Edit by Jocelyne Moses, ACCOUNTANT MACHINE PROCESSING on 06/07/23 14:19 UA Bilirubin 0 mg/dL Last Edit by Jocelyne Moses, ACCOUNTANT MACHINE PROCESSING on 06/07/23 14:19 UA Glucose 0 mg/dL Last Edit by oJcelyne Moses, ACCOUNTANT MACHINE PROCESSING on 06/07/23 14:19 Results Reviewed Results Reviewed: Laboratory Last Values Urine pH (Auto) 6.0 06/07/23 14:18 Specific [place] (Auto) 1.025 06/07/23 14:18 Urine Protein (Auto) 15 mg/dL 06/07/23 14:18 Glucose (UA)(Auto) 0 mg/dL 06/07/23 14:18 Urine Ketones (Auto) Negative 06/07/23 14:18 Urine Blood (Auto) 10 Ted/uL 06/07/23 14:18 Urine Nitrite (Auto) Positive 06/07/23 14:18 Urine Bilirubin (Auto) 0 mg/dL 06/07/23 14:18 Urine Urobilinogen (Auto) 0.2 mg/dL 06/07/23 14:18 Leukocyte Esterase (Auto) 500 Lonnie/uL 06/07/23 14:18 Assessment & Plan Assessment & Plan (1) Urinary tract infection: Code(s): N39.0 - Urinary tract infection, site not specified Plan 78-year-old male presents with his guest associate for evaluation of dysuria that he reported this morning. Patient has an academic impairment, is able to make some of his needs known. This patient requires 24 hour care which is provided by his live-in guest associate. Balloon Design Printer states that he does get recurrent UTIs. She does not report any changes in behavior, poor p.o. intake, weakness, trauma or falls. Urinalysis indicates positive leukocyte esterase. Patient states to feel well otherwise, and is answering questions to the best of his ability. I do not suspect abuse or neglect, and I feel that this guest associate takes very good care of this patient. Balloon Design Printer does understand that if sensitivity returns and the medication prescribed is not susceptible, that the medications may change. Balloon Design Printer verbalized understanding of and agrees to plan of care discharge home. Verbalized understanding of signs symptoms indicating need for emergent intervention. Orders: Orders AMB Urinalysis Automated Today Z13.9 - Encounter for screening, unspecified Patient Instructions: You were evaluated for dysuria. Your urinalysis is positive for UTI Please take cefuroxime 500 mg every 12 hours for the next 7 days. Drink plenty of fluids. Thank you for choosing this urgent care for evaluation. Please follow-up with primary care physician as needed. Return to the emergency department for any new, concerning, or worsening symptoms. Coding Level of Care Code Est Pt Level 3 (90438) Diagnoses Urinary tract infection N39.0
[2023-06-07 14:01] VITALS: BP 102/50; PULSE 68; TEMP 36.6; O2SAT 97
== END 2023-06-07 15:44 | disposition home or self-care (01) ==
PROVIDERS: Visit Provider Nurse Practitioner Family
DX: N39.0 Urinary tract infection, site not specified (principal); R30.9 Painful micturition, unspecified
CPT/HCPCS: 81003; 99213

== ENCOUNTER 2023-08-09 10:01 | Outpatient (AMB) | payer MEDICARE, MEDICAID, SELFPAY ==
[2023-08-09 12:04] VITALS: BP 130/76; PULSE 68; TEMP 36.3; O2SAT 98; BMI 21.8
--- NOTE | 2023-08-09 12:04 | MHC.OFFWIV ---
Intake Vital Signs 08/09/23 12:04 Height 6 ft 2 in Weight 170 lb BMI 21.8 BP 130/76 Blood Pressure Location Lt brachial Position Sitting Pulse 68 Pulse Source Pulse Oximeter Temp 97.3 F Temp Source Temporal Artery Scan Pulse Oximetry (%) 98 Oxygen Delivery Method Room Air Intake Visit Reasons: EP, Left foot swelling Intake Note: pt is here for c/o left foot swelling Patient Tobacco Use Status: Never used Tobacco Allergies No Known Allergies [No Known Allergies*] Allergy (Verified 08/09/23 12:45) Medication List - Last Reconciled 08/09/23 by Todd Seo MD acetaminophen 1 tab PO Q6H PRN citalopram 1 tab PO DAILY finasteride 1 tab PO QAM furosemide 10 mg PO DAILY magnesium oxide 400 mg PO BIDPC 30 days multivitamin 1 tab PO QAM omeprazole 1 cap PO BID tamsulosin 1 cap PO BID triamcinolone acetonide 0.1% 1 appl topical DAILY Do you need a note to return to daycare/school/sports/work: Yes HPI EP, Left foot swelling HPI Details 78-year-old male presents to the office for a sick visit. Due to mental illness he is unable to communicate and his caregiver is giving the history. He lives with a caregiver at her home. She reports that he stubbed his left foot against the furniture a few days ago. Subsequently she noticed some redness over the top of his foot. He complains little but occasionally has symptoms of pain. Able to walk without a limp. [facility] Medical History Hypertension Intellectual disability Social History Household Members: Spouse Housing: House Do you presently have visiting nurse or other home services: Yes Alcohol intake: never Patient Tobacco Use Status: Never used Tobacco service: No Current occupational status: disabled Physical Exam Vital Signs: Last Vital Signs Temp 97.3 F 08/09/23 12:04 Pulse 68 08/09/23 12:04 BP 130/76 08/09/23 12:04 Pulse Ox 98 08/09/23 12:04 Oxygen Delivery Method Room Air 08/09/23 12:04 BMI result Body Mass Index 21.8 Extrem Other: Left foot: Dorsum of the foot is slightly swollen. No erythema or bluish discoloration. Advanced nail dystrophy Assessment & Plan Assessment & Plan (1) Contusion of foot, left: Code(s): S90.32XA - Contusion of left foot, initial encounter Plan: X-ray images were personally reviewed by me. No fractures seen. No evidence of cellulitis. Patient and caregiver were reassured Orders: Orders XR foot LT min 3V Today S90.32XA - Contusion of left foot, initial encounter Coding Level of Care Code Est Pt Level 4 (88625) Diagnoses Contusion of foot, left S90.32XA
== END 2023-08-09 13:37 | disposition home or self-care (01) ==
PROVIDERS: Visit Provider Internal Medicine
DX: S90.32XA Contusion of left foot, initial encounter (principal)
CPT/HCPCS: 99214

== ENCOUNTER 2023-08-09 12:42 | Outpatient (REF) | payer MEDICARE, MEDICAID, SELFPAY | END 2023-08-09 12:43 | disposition home or self-care (01) | LOC: HO.HMGCX 12:42 | PROVIDERS: PCP Internal Medicine; Visit Provider Internal Medicine | DX: S90.32XA Contusion of left foot, initial encounter (principal) | CPT/HCPCS: 73630 ==

== ENCOUNTER 2023-08-23 09:04 | Outpatient (AMB) | payer MEDICARE, MEDICAID, SELFPAY ==
[2023-08-23 09:09] VITALS: BMI 21.8
--- NOTE | 2023-08-23 09:09 | MHC.OFFVIS ---
Intake Vital Signs 08/23/23 09:09 Height 6 ft 2 in Weight 170 lb BMI 21.8 Intake Visit Reasons: FC - left great toe fx Intake Note: Brad is a 78 year old non verbal male who presents today with his manager managed care for a evaluation of his left great toe fx. Patient's manager managed care reports that he stubbed his left foot against the furniture a few weeks prior to walk in clinic. [place] [facility] [place] due to his swelling, xrays were taken and was referred to orthopedics. Currently he does not complain of pain. Allergies No Known Allergies [No Known Allergies*] Allergy (Verified 08/23/23 09:09) HPI FC - left great toe fx HPI Details 78-year-old male who presents in the office today with his caregiver, as a new patient, for an evaluation of left great toe pain. The patient presented to the Walk-in clinic on 08/09/2023 status post stubbing his left great toe on furniture a few days prior to this presenting to the clinic. X-rays of the left foot were obtained. His caregiver reports he does not complain of pain. Of note: Due to mental illness he is unable to communicate and his caregiver is giving the history. He lives with a caregiver at her home, per Walk-in clinic note. [facility] Medical History Hypertension Intellectual disability Social History Household Members: Spouse Housing: House Do you presently have visiting nurse or other home services: Yes Alcohol intake: never Patient Tobacco Use Status: Never used Tobacco service: No Current occupational status: disabled Review of Systems Const All systems reviewed & are unremarkable except as noted in HPI and below Physical Exam Vital Signs: BMI result Body Mass Index 21.8 Const General: cooperative and no acute distress Orientation/consciousness: patient oriented x3 Resp Effort & Inspection: normal respiratory effort and able to speak in complete sentences Cardio Peripheral pulses: Peripheral pulses 2+ throughout Skin General skin exam: no rashes or lesions noted Neuro General: patient oriented x3 Extrem Other: Left foot: Left great toe is normal to inspection. No ecchymosis or erythema. Mild edema. Mild tenderness to palpation over the proximal phalanx. Able to move all digits. Sensation intact. Assessment & Plan Assessment & Plan (1) Fracture of proximal phalanx of left great toe: Code(s): S92.412A - Displaced fracture of proximal phalanx of left great toe, initial encounter for closed fracture Qualifiers: Encounter type: initial encounter Fracture alignment: nondisplaced Fracture type: closed Qualified Code(s): S92.415A - Nondisplaced fracture of proximal phalanx of left great toe, initial encounter for closed fracture Plan Mr. Arndt is a 78-year-old male who presents in the office today with his caregiver, as a new patient, for an evaluation of left great toe pain. The patient presented to the Walk-in clinic on 08/09/2023 status post stubbing his left great toe on furniture a few days prior to this presenting to the clinic. X-rays of the left foot were obtained. His caregiver reports he does not complain of pain. Of note: Due to mental illness he is unable to communicate and his caregiver is giving the history. He lives with a caregiver at her home, per Walk-in clinic note. I discussed with the patient and his caregiver the use of post operative shoe. However, the fracture occurred roughly 4 weeks ago and the x-rays revealed routine healing. He has been ambulating in a normal walking shoe and he has been ambulating well. Therefore we have agreed to defer at this time. I did educated them that a fracture can take 6-8 weeks if not longer to heal, therefore, he may return to normal activities as tolerated. Follow up will be PRN, or sooner if needed. X-rays of the left foot obtained while in the office today and reviewed by me, Brittny Ansari PA-C, revealed routine healing of a left proximal phalanx fracture of the left great toe. X-rays of the left foot, obtained on 08/09/2023, revealed: Displaced fracture distal end proximal phalanx first digit. There is diffuse osteopenia. No additional fracture seen. Orders: Orders XR foot LT min 3V Today M79.673 - Pain in unspecified foot Patient Instructions: Scribed for Brittny Ansari PA-C by Marina Mann biomedical manager, on 08/23/2023 at 9:06 am, EST. Coding Level of Care Code New Pt Level 4 (68283) Diagnoses Closed nondisplaced fracture of proximal phalanx of left great toe, initial encounter S92.415A Encounter type: initial encounter Fracture alignment: nondisplaced Fracture type: closed
== END 2023-08-23 09:58 | disposition home or self-care (01) ==
PROVIDERS: PCP Internal Medicine; Visit Provider Physician Assistant
DX: S92.412A Displaced fracture of proximal phalanx of left great toe, initial encounter for closed fracture (principal)
CPT/HCPCS: 99203

== ENCOUNTER 2023-08-23 17:20 | Outpatient (REF) | payer MEDICARE, MEDICAID, SELFPAY ==
--- NOTE | ~2023-08-23 | XR_ITS ---
EXAMINATION: XR FOOT, LEFT CLINICAL INFORMATION: Pain. COMPARISON: Radiographs dated 08/09/2023. TECHNIQUE: AP, lateral, and oblique views of the left foot. FINDINGS: There is bony demineralization. There is stable alignment of a mildly displaced and mildly active fracture of the distal metaphysis of the proximal phalanx of the great toe. The fracture line shows intra-articular extension. There is mild periosteal callus formation. No dislocation is seen. Boehler's angle is normal. There is a tiny posterior calcaneal spur. No focal soft tissue swelling, gas or foreign body is seen. XR/XR foot LT min 3V IMPRESSION: There is stable alignment of a mildly displaced and comminuted fracture of the metaphysis of the proximal phalanx of the left great toe. There is mild periosteal callus formation.
== END 2023-08-23 17:21 | disposition home or self-care (01) ==
LOC: HO.HOSX 17:20
PROVIDERS: Visit Provider Physician Assistant
DX: S92.415A Nondisplaced fracture of proximal phalanx of left great toe, initial encounter for closed fracture (principal)
CPT/HCPCS: 73630; 99202

== ENCOUNTER 2023-10-19 09:23 | Inpatient (IN) | payer MEDICARE, MEDICAID, SELFPAY ==
[2023-10-19] VITALS (12 sets, daily range): BP systolic 98–123; BP diastolic 41–59; PULSE 77–91; RESP 14–25; TEMP 36.7–38.9; O2SAT 92–98; BMI 20.3
--- NOTE | ~2023-10-19 | XR_ITS ---
EXAMINATION: XR CHEST CLINICAL INFORMATION: Weakness COMPARISON: Previous chest x-ray most recent December 2022 TECHNIQUE: Frontal view of the chest was obtained. FINDINGS: The cardiac and mediastinal contours are normal. There is airspace disease at the left lung base suggestive of pneumonia. Patchy airspace disease at the right lung base as well. The lungs are well-inflated suggestive of COPD. No pleural effusion or pneumothorax. Degenerative changes of the spine. XR/XR chest 1V IMPRESSION: Left base pneumonia.
--- NOTE | ~2023-10-19 | CT_ITS ---
EXAMINATION: CT CHEST WITHOUT CONTRAST CLINICAL INFORMATION: Fever, hypotension and shortness of breath COMPARISON: Chest radiograph earlier today which demonstrated left lower lobe pneumonia TECHNIQUE: Multidetector volumetric CT imaging of the chest was done. Axial MIP volume rendering provided. Sagittal and coronal reformatted images were obtained. This CT examination was performed using dose optimization techniques as appropriate, variously including the following: *Automated exposure control *Adjustment of mA and/or kV according to patient size (this includes techniques or standardized protocols for targeted exams where dose is matched to indication/reason for exam; i.e. extremities or head) *Use of iterative reconstruction technique DLP: 269 mGy-cm FINDINGS: LUNGS: Multifocal infiltrates are seen with the largest area of infiltrate in the left lower lobe corresponding to the abnormality seen on the chest radiograph. In addition, other areas of patchy infiltrates are seen in the right lower lobe, the lingula and the right middle lobe. There is relative sparing of the right upper lobe. Underlying changes of emphysema are present. MEDIASTINUM: No mediastinal or hilar lymphadenopathy. Heart size is normal. The esophagus contains fluid. The thyroid is unremarkable. CORONARY ARTERY CALCIFICATION: None visualized on this study. PLEURA: There is no pleural effusion. No pleural mass or thickening. AXILLA: No lymphadenopathy. UPPER ABDOMEN: Unremarkable. OSSEOUS STRUCTURES: Unremarkable. CT/CT chest wo IV con IMPRESSION: 1. Multifocal infiltrates consistent with pneumonia. The largest area of infiltrate is in the left lower lobe corresponding to the abnormality seen on the chest radiograph. 2. Underlying changes of emphysema. 3. Other incidental findings described above. Fleischner guidelines were followed.
--- NOTE | ~2023-10-19 | CT_ITS ---
EXAMINATION: CT ABDOMEN AND PELVIS WITHOUT CONTRAST CLINICAL INFORMATION: Abdominal pain. COMPARISON: None available. TECHNIQUE: Multidetector volumetric imaging was performed from the superior aspect of the liver through the pubic symphysis. Sagittal and coronal reformatted images were obtained on the technologist's workstation. This CT examination was performed using dose optimization techniques as appropriate, variously including the following: *Automated exposure control *Adjustment of mA and/or kV according to patient size (this includes techniques or standardized protocols for targeted exams where dose is matched to indication/reason for exam; i.e. extremities or head) *Use of iterative reconstruction technique DLP: 640 mGy-cm FINDINGS: The exam is limited secondary to patient motion and breathing artifact. LUNG BASES: There is patchy opacity seen in left lower lobe, lingula and right middle lobe.. There is a left lower lobe consolidation/infiltrate. LIVER, GALLBLADDER, AND BILIARY TREE: The liver is normal in size, shape, and attenuation. No focal hepatic lesion or biliary ductal dilatation is present. The gallbladder has been surgically removed. PANCREAS: Unremarkable. SPLEEN: Unremarkable. ADRENAL GLANDS: Unremarkable. KIDNEYS AND URETERS: The kidneys are normal in size, shape, and attenuation. No hydronephrosis, hydroureter, or calculi seen. No perinephric stranding. BLADDER: The bladder is mildly distended with mild bladder wall thickening likely from obstructive enlarged prostate gland. No radiopaque bladder calculi seen. GASTROINTESTINAL TRACT: There is scattered stool and gas seen throughout the colon without distention. The small bowel loops are normal caliber. The stomach is nondistended. ABDOMINAL WALL: No significant hernia is appreciated. LYMPH NODES: Normal. VASCULAR: Unremarkable. PELVIC VISCERA: The prostate gland is significantly enlarged extending into the base of bladder. There is punctate central gland calcification. No abnormal pelvic lymph nodes seen. No free air or free fluid. OSSEOUS STRUCTURES: Grade 1 anterolisthesis L5 over S1 with vacuum disc phenomena. Rest the disc heights are normal. No visible acute fracture, dislocation or subluxation seen. CT/CT abdomen pelvis wo IV con IMPRESSION: 1. Significantly enlarged prostate gland extending into the base of bladder with mild bladder wall thickening. 2. No radiopaque urolith or hydroureteronephrosis. 3. Mild constipation. Fleischner guidelines were followed.
--- NOTE | ~2023-10-19 | CT_ITS ---
EXAMINATION: CT ABDOMEN AND PELVIS WITHOUT CONTRAST CLINICAL INFORMATION: Abdominal pain. COMPARISON: CT chest 10/19/2023. TECHNIQUE: Multidetector volumetric imaging was performed from the superior aspect of the liver through the pubic symphysis. Sagittal and coronal reformatted images were obtained on the technologist's workstation. This CT examination was performed using dose optimization techniques as appropriate, variously including the following: *Automated exposure control *Adjustment of mA and/or kV according to patient size (this includes techniques or standardized protocols for targeted exams where dose is matched to indication/reason for exam; i.e. extremities or head) *Use of iterative reconstruction technique DLP: 882 mGy-cm FINDINGS: LUNG BASES: There is extensive airspace disease/patchy opacity in the lingula, right middle lobe and both lower lobes, worse in the left lower lobe. The heart size is normal. No pericardial or pleural effusion seen. LIVER, GALLBLADDER, AND BILIARY TREE: The liver is normal in size, shape, and attenuation. No focal hepatic lesion or biliary ductal dilatation is present. The gallbladder has been surgically removed. PANCREAS: Unremarkable. SPLEEN: Unremarkable. ADRENAL GLANDS: Unremarkable. KIDNEYS AND URETERS: The kidneys are normal in size, shape, and attenuation. No hydronephrosis, hydroureter, or calculi seen. No perinephric stranding. There are bilateral extrarenal kidney pelvises. BLADDER: There is mild urinary bladder wall thickening but no radiopaque calculi seen.. GASTROINTESTINAL TRACT: There is large amount of stool in the rectum and sigmoid colon. There is nonspecific mild mural thickening involving the proximal sigmoid/descending colon but no pericolic fat stranding. No diverticuli seen in this segment. Rest of the colon is unremarkable. The mild prominent fluid-filled small bowel loops question ileus. No free fluid or free air seen. No evidence of hernia or obstruction. ABDOMINAL WALL: No significant hernia is appreciated. LYMPH NODES: Normal. VASCULAR: Unremarkable. PELVIC VISCERA: The prostate gland is moderately enlarged extending into the base of bladder with punctate central gland calcification. OSSEOUS STRUCTURES: There are degenerative disc changes with vacuum disc phenomena L5-S1 disc level. There is old healed left femoral fracture with 3 nails through the femoral neck. CT/CT abdomen pelvis wo IV con IMPRESSION: 1. Significant stool in the rectum and sigmoid colon question fecal impaction. No proximal colonic distention seen.. No pericolic fat stranding seen. Consider simple enema. 2. Mild prominent fluid-filled small bowel loops question ileus. 3. Bilateral extrarenal kidney pelvises. No radiopaque calculi or hydronephrosis. 4. Moderate prostate enlargement. 5. There is extensive airspace disease/patchy opacity in the lingula, right middle lobe and both lower lobes, worse in the left lower lobe. Fleischner guidelines were followed.
--- NOTE | 2023-10-19 10:04 | ECG_ITS ---
Test Reason : N/V Blood Pressure : / mmHG Vent. Rate : 087 BPM Atrial Rate : 087 BPM P-R Int : 144 ms QRS Dur : 098 ms QT Int : 372 ms P-R-T Axes : 068 079 061 degrees QTc Int : 447 ms Sinus rhythm with baseline artifact Otherwise normal ECG When compared with ECG of 12-DEC-2022 18:45, No significant changes seen Referred By: Dominick Phelps Electronically Signed By:GENEVIEVE ROBINS MD
--- NOTE | 2023-10-19 10:20 | ED.GENADULT ---
HPI - General Adult General Chief complaint: Nausea/Vomiting/Diarrhea Stated complaint: NAUSEA/VOMITING THIS AM FROM [facility],NONVERB Time Seen by Provider: 10/19/23 10:03 Source: patient and EMS Mode of arrival: EMS Limitations: other ( Patient is nonverbal at baseline.) History of Present Illness HPI narrative: 78-year-old male presents from senior living with concerns that patient has been having worsening urinary incontinence he has incontinence at baseline however worsening. Patient does have a significant history of urinary tract infections. Patient able to nod his head and answer questions he denies chest pain, shortness of breath, nausea, vomiting, fevers, chills, headache, vision changes, dizziness and weakness. When I asked him if he has urinary changes he nods his head yes he reports urgency, frequency. Related Data Home Medications Medication Instructions Recorded Confirmed acetaminophen 325 mg tablet 2 tab PO Q6H PRN fever or pain 12/13/22 10/19/23 citalopram 20 mg tablet 1 tab PO QAM 12/13/22 10/19/23 finasteride 5 mg tablet 1 tab PO QAM 12/13/22 10/19/23 furosemide 20 mg tablet 10 mg PO QAM 12/13/22 10/19/23 multivitamin 1 tab PO QAM 12/13/22 10/19/23 omeprazole 20 mg capsule,delayed 2 cap PO QAM 12/13/22 10/19/23 release tamsulosin 0.4 mg capsule 2 cap PO DAILY 12/13/22 10/19/23 triamcinolone acetonide 0.1 % 1 appl topical DAILY PRN Rash 12/13/22 10/19/23 topical cream Previous Rx's Medication Instructions Recorded magnesium oxide 400 mg (241.3 mg 400 mg PO BIDPC 30 days #60 tabs 12/17/22 magnesium) tablet Allergies Allergy/AdvReac Type Severity Reaction Status Date / Time No Known Allergies Allergy Verified 08/23/23 09:09 [No Known Allergies*] Review of Systems Review of Systems: Constitutional : No Weight loss, No Fever, No Chills, No Fatigue, No Malaise ENT/Mouth : No sore throat, No Rhinorrhea Eyes: No Eye Pain, No Swelling, No Redness Cardiovascular : No Chest Pain, No SOB, No Dyspnea on Exertion, No Orthopnea, No Edema, No Palpitations Respiratory : No Cough, No Sputum, No Wheezing Gastrointestinal : No Nausea, No Vomiting, No Diarrhea, No Constipation, No abdominal Pain, No Hematochezia, No Melena Genitourinary : No Dysuria, + Urinary Frequency, + Hematuria, Musculoskeletal : No joint pain, No Myalgias, No Joint Swelling Skin : No Skin Lesions, No rash Neuro : No Weakness, No Numbness, No Dizziness, No Headache Psych : No Anxiety/Panic, No Depression All other systems reviewed and are negative Yes all other systems are reviewed and are negative [facility] Past Medical History Attestation statement: The following information was validated with the patient. Source: old records reviewed and nursing notes reviewed Medical History Hypertension Intellectual disability Social History Social History Household Members: Spouse Housing: House Do you presently have visiting nurse or other home services: Yes Alcohol intake: never Patient Tobacco Use Status: Never used Tobacco Smoked in Last 30 Days: No Use of substances other than those prescribed or required for medical reasons: No Advance Directives: No service: No Current occupational status: disabled Physical Exam ED Vital Signs: Vital Signs - 24 hr 10/19/23 09:40 10/19/23 13:05 10/19/23 13:09 Temperature 98.4 F 102.0 F H 102 F H Pulse Rate 82 88 Respiratory Rate 15 20 Blood Pressure 104/41 L 98/46 L Pulse Oximetry 94 92 Oxygen Delivery Method Room Air Room Air 10/19/23 13:44 Temperature Pulse Rate 77 Respiratory Rate 16 Blood Pressure 102/46 L Pulse Oximetry 93 Oxygen Delivery Method Room Air BMI result Body Mass Index 20.3 vss Appearance: Alert.? Oriented X3.? No acute distress.?Non verbal but nodding to answer questions. Head: Normocephalic, atraumatic, no step-offs or deformities Eyes: Pupils equal, round and reactive to light.? ENT: Pharynx normal.? Neck: Normal inspection.? Neck supple.? CVS: Normal heart rate and rhythm.? Pulses normal.? Respiratory: No respiratory distress.? Breath sounds normal.? Abdomen: Soft and nontender.? Skin: Skin warm and dry.? Normal skin color.? Normal skin turgor.? Extremities: No lower extremity edema.? No calf ttp. Global weakness. Neuro: Oriented X 3.? No motor deficit.? No sensory deficit. Unable to Obtain full neurological assessment. Global weakness no focal neurological deficits. Ambulating with steady gait normal coordination. Course Reevaluation(s) Reevaluation #1: CBC with leukopenia and elevated hemoglobin and hematocrit when compared to patient's baseline likely secondary to poor p.o. intake/dehydration. Chemistry with elevated BUN and creatinine ? acute dehydration, IV fluids ordered. Initial trop 43.3 second ordered for 1:00 pm, EKG nonischemic poor historian. Time: 10:45 Reevaluation #2: Patient w/ low pressure, tachycardia and fever at this time infection suspected. Ordered fluids, tylenol, ceftriaxone and azithro. patient has already received fluids equivalent to a 30 cc/kilos bolus. Repeat troponin meeting delta criteria, EKG is nonischemic when I asked patient if he has chest pain he nods his head no. I suspect this is a type type 2 myocardial injury likely due to poor perfusion from ? PNA vs UTI. Unlikely ACS, NSTEMI. Time: 14:02 Reevaluation #3: X-ray showing left lower lobe pneumonia. UA still pending. I did order a CT scan of the chest without contrast to further evaluate pneumonia. This would explain why patient has had episodes of hypoxia, fever. Plan hospital admisison. Time: 14:47 Medications Administered Generic Name Dose Route Start Last Admin Trade Name Freq PRN Reason Stop Dose Admin Sodium Chloride 1,000 mls @ 999 mls/hr 10/19/23 14:00 10/19/23 14:22 Ns IV 10/19/23 15:00 999 mls/hr .Q1H1M NINFA Administration Discontinued Medications Generic Name Dose Route Start Last Admin Trade Name Freq PRN Reason Stop Dose Admin Acetaminophen 650 mg 10/19/23 13:20 10/19/23 13:38 Acetaminophen 325 Mg Tablet PO 10/19/23 13:21 650 mg ONCE ONE Administration Sodium Chloride 1,000 mls @ 999 mls/hr 10/19/23 13:15 10/19/23 14:41 Ns IV 10/19/23 14:15 Infused .Q1H1M NINFA Infusion Ceftriaxone Sodium 1 gm/ 50 mls @ 100 mls/hr 10/19/23 13:58 10/19/23 14:21 Sodium Chloride IV 10/19/23 14:27 100 mls/hr ONCE ONE Administration Medical Decision Making Medical Decision Making [facility] Narrative: 78-year-old male presents with weakness and worsening urinary incontinence from senior living. Nonverbal physical exam benign global weakness which appears to be patient's baseline will rule out electrolyte abnormalities in UTI which are most likely. No signs of acute abdomen, obstructing uropathy. Unlikely systemic illness/sepsis. Plan at this time labs, urine. Differential Diagnosis Differential Diagnoses: The differential diagnosis associated with the presentation includes will rule out electrolyte abnormalities in UTI which are most likely. No signs of acute abdomen, obstructing uropathy. Unlikely systemic illness/sepsis. Admission/Observation Consideration of admission/observation: Escalation of care including admission/observation considered Take your medications as prescribed. If you were prescribed antibiotics today, it is important that you take your medication to their entirety, do not skip any doses, do not finish them early. Follow-up with your primary care provider this week. Return to the emergency department with new or worsening symptoms. Such as fevers, chills, chest pain, shortness of breath, nausea, vomiting, dizziness, headache, vision changes, lethargy In case of emergency call 911 Lab Data 10/19/23 10:27 10/19/23 10:27 Labs: Lab Results 10/19/23 10/19/23 10/19/23 Range/Units 10:27 13:20 13:42 WBC 4.3 L (4.8-10.8) X10*3/uL RBC 4.63 (4.60-5.80) X10*6/uL Hgb 13.4 L (14.0-18.0) g/dl Hct 40.8 L D (42.0-52.0) % MCV 88.1 (80.0-98.0) fL MCH 28.9 (27.0-33.0) pg MCHC 32.8 (31.0-36.0) g/dl RDW 13.3 (11.0-16.0) % Plt Count 140 L (160-400) X10*3/uL MPV Not Reportable Immature Gran % (Auto) 0.2 (0.0-0.4) % Neut % (Auto) 93.7 H (45-73) % Lymph % (Auto) 4.9 L (20-40) % Newberry % (Auto) 0.5 L (2-11) % Eos % (Auto) 0.2 (0-4) % Baso % (Auto) 0.5 (0-2) % Lymph # (Auto) 0.2 L (1.2-4.9) X10*3/uL Newberry # (Auto) 0.0 L (0.1-1.2) X10*3/uL Eos # (Auto) 0.0 (0.0-0.4) X10*3/uL Baso # (Auto) 0.0 (0.0-0.2) X10*3/uL Abs Immat Gran (auto) 0.01 (0.00-0.03) X10*3/uL Absolute Neuts (auto) 4.0 (2.0-8.3) x10*3/uL Absolute Nucleated RBC 0.000 (0.0-0.012) X10*3/uL Nucleated RBC % (auto) 0.0 (0.0-0.2) /100WBC Smear Tech's Comments VERIFIED Sodium 142 (135-145) mmol/L Potassium 3.8 (3.3-5.1) mmol/L Chloride 112 H (96-108) mmol/L Carbon Dioxide 21 L (22-29) mmol/L Anion Gap 13 (12-20) BUN 37 H (9-16) mg/dL Creatinine 1.10 (0.5-1.4) mg/dL Estim Creat Clear Calc 52.4 Estimated GFR > 60 Random Glucose 92 (60-115) mg/dL Calcium 9.2 D (8.4-10.2) mg/dL Magnesium 1.8 (1.6-2.6) mg/dL Total Bilirubin 0.5 (0.0-1.0) mg/dL AST 78 H (5-37) U/L ALT 44 H (0-40) U/L Alkaline Phosphatase 89 (39-117) U/L Total Creatine Kinase 39 (38-174) U/L Troponin I High Sens 43.3 H D 83.2 H D (<3.5-35.0) ng/L Total Protein 6.6 (6.5-8.0) g/dL Albumin 3.6 (3.5-5.0) g/dL Lipase 25 (8-78) U/L COVID-19 ([facility]) Negative (Negative) COVID-19 Clin Com See Note Influenza Type A (PCR) NEGATIVE (Negative) Influenza Type B (PCR) NEGATIVE (Negative) RSV RNA Qual (PCR) NEGATIVE (Negative) SARS-CoV-2 RNA (RT-PCR) NEGATIVE (Negative) Critical Care Time Critical Care Time Critical Care Time: Yes Total Critical Care Time: 35 Attestation: I attest to this time spent taking care of the patient, obtaining history, physical, reviewing labs, imaging, speaking to hospitalist. Discharge Plan Discharge Clinical Impression: Pneumonia, Elevated troponin, UTI symptoms Patient Disposition: Admitted As Inpatient Prescriptions: No Action acetaminophen 325 mg tablet 2 tab PO Q6H PRN (Reason: fever or pain) citalopram 20 mg tablet 1 tab PO QAM tamsulosin 0.4 mg capsule 2 cap PO DAILY omeprazole 20 mg capsule,delayed release(DR/EC) 2 cap PO QAM furosemide 20 mg tablet 10 mg PO QAM finasteride 5 mg tablet 1 tab PO QAM multivitamin Tablet 1 tab PO QAM triamcinolone acetonide 0.1 % Cream 1 appl TOPICAL DAILY PRN (Reason: Rash) magnesium oxide 400 mg (241.3 mg magnesium) Tablet 400 mg PO BIDPC 30 Days Qty: 60 0RF
[2023-10-19 10:35] LABS: Basophils Percent Auto 0.5 % (0-2); Imm Gran Abs Auto 0.01 X10*3/uL (0.00-0.03); Mean Corpuscular Volume 88.1 fL (80.0-98.0); Monocytes Percent Auto 0.5 % (2-11); PLT CLUMP 1; Red Cell Distribution Width 13.3 % (11.0-16.0); SCAN SMEAR FLAG 1
[2023-10-19 10:37] LABS: Eosinophils Percent Auto 0.2 % (0-4); Hematocrit 40.8 % (42.0-52.0); Hemoglobin 13.4 g/dl (14.0-18.0); Imm Gran Pct Auto 0.2 % (0.0-0.4); Lymphocytes Absolute Auto 0.2 X10*3/uL (1.2-4.9); Lymphocytes Percent Auto 4.9 % (20-40); MANUAL DIFF FLAG SCAN; Mean Corpuscular HGB Conc 32.8 g/dl (31.0-36.0); Mean Corpuscular Hemoglobin 28.9 pg (27.0-33.0); Neutrophils Percent Auto 93.7 % (45-73); Red Blood Count 4.63 X10*6/uL (4.60-5.80)
[2023-10-19 10:38] LABS: White Blood Count 4.3 X10*3/uL (4.8-10.8)
[2023-10-19 10:51] LABS: Alanine Aminotransferase 44 U/L (0-40); Albumin Level 3.6 g/dL (3.5-5.0); Alkaline Phosphatase 89 U/L (39-117); Anion Gap 13 (12-20); Aspartate Amino Transferase 78 U/L (5-37); Bilirubin Total 0.5 mg/dL (0.0-1.0); Blood Urea Nitrogen 37 mg/dL (9-16); Calcium 9.2 mg/dL (8.4-10.2); Carbon Dioxide 21 mmol/L (22-29); Chloride 112 mmol/L (96-108); Creatinine Clr Calc Pharmacy 52.4; Estimated Glomerular Filt Rate > 60; Glucose Random 92 mg/dL (60-115); Lipase 25 U/L (8-78); Magnesium 1.8 mg/dL (1.6-2.6); Potassium 3.8 mmol/L (3.3-5.1); Sodium 142 mmol/L (135-145); Total Protein 6.6 g/dL (6.5-8.0)
[2023-10-19 10:53] LABS: Platelet Count 140 X10*3/uL (160-400)
[2023-10-19 10:54] LABS: SLIDE REVIEW VERIFIED
[2023-10-19 10:58] LABS: Troponin-I High Sensitivity 43.3 ng/L (<3.5-35.0)
[2023-10-19 11:11] LABS: COVID-19 Test Negative (Negative); IDNOW Serial# BCCEAD1C
[2023-10-19] MEDS: 0.9 % Sodium Chloride 1,000 ML 999 ML IV ×3 (13:36→20:05)
[2023-10-19] MEDS: Acetaminophen 325 MG TABLET 650 MG PO ×2 (13:38→22:32)
--- NOTE | 2023-10-19 13:46 | PC.NURSE ---
Josue, guitar technician alerted this RN that patient had fever. PA aware. This RN placed 22g IV in R hand. Fluids running at this time. Pt is now resting on stretcher at this time, reports abdominal pain at this time. Respirations even and unlabored, skin pwd
--- NOTE | 2023-10-19 13:47 | PHA.MEDREC ---
Pharmacy Consult ? Medication Reconciliation Pharmacy has completed the medication reconciliation. used list from facility
[2023-10-19 13:48] LABS: Troponin-I High Sensitivity 83.2 ng/L (<3.5-35.0)
[2023-10-19] MEDS: cefTRIAXone sodium 1 GM in 0.9 % Sodium Chloride 50 ML IV (14:21)
[2023-10-19 14:29] LABS: Influenza A PCR NEGATIVE (Negative); Influenza B PCR NEGATIVE (Negative); Resp Syncy Virus RNA Qual PCR NEGATIVE (Negative); SARS COV2 PCR INHOUSE NEGATIVE (Negative)
[2023-10-19 14:53] LABS: Appearance Urine Turbid; Color Urine Yellow; Glucose Urine UA Negative (Negative); Leukocyte Esterase Urine Moderate (2+) (Negative); Nitrite Urine Positive (Negative); Specific Gravity - Urine 1.015 (1.005-1.025); UMIC TRIGGER UACC YES; Urine Blood Trace (Negative); Urine Ketones Trace mg/dL (Negative); Urine Protein Trace mg/dL (Neg-Trace)
[2023-10-19 14:55] LABS: Bacteria Urine 4+ (None Seen); Hyaline Casts Urine 0-2 /LPF (0-2); UACC Culture Trigger YES; WBC Urine 21-50 /HPF (0-5)
[2023-10-19 14:59] LABS: Lactic Acid 2.7 mmol/L (0.5-2.0)
[2023-10-19] MEDS: 0.9 % Sodium Chloride 500 ML IV (15:04)
[2023-10-19] MEDS: Azithromycin 500 MG in 0.9 % Sodium Chloride 250 ML 125 MG IV (15:14)
--- NOTE | 2023-10-19 15:19 | PC.NURSE ---
Pt has two IVs 22g in RH and 20g in RFA. Medications administered per MAR
[2023-10-19 16:29] LABS: Reflex Lactate? Lactic Acid Added
--- NOTE | 2023-10-19 17:33 | P.HPHOSP_ITS ---
History of Present Illness Date of Service: 10/19/23 Chief Complaint: Shortness of breath ?78?year old male with PMH significant for?cognitively delay, hypothyroidism, depression, IOL implant (2015) and frequent UTIs who is brought to the ED with reported increased urinary incontinence more than his baseline. He doesn't communicate at base line but sasys yes and no. He lives at home with his and caregiver. Patient was grimacing and when asked if he is having pain point to his lower abdomen. There is reported that he vomitted prior to coming in. Work up has included positive UA, elevaed lactic acid of 2.7, troponin of 83. Covid, RSV, flu negative. Chest Xray show left base pneumonia, CT of chest show Multifocal infiltrates consistent with pneumonia. The larg est area of infiltrate is in the left lower lobe corresponding to the abnormality seen on the chest radiograph. ED has given AZithro and Ceftriaxone. WBC is 4, he has no fever Review of Systems 2 Review of Systems: Yes Unobtainable due to mental status [facility] Medical History Hypertension Intellectual disability Social History Household Members: Other Housing: Other Housing Other:: Intermediate Do you presently have visiting nurse or other home services: Yes Unable to assess alcohol history related to: Unknown Alcohol intake: never Patient Tobacco Use Status: Tobacco use Unknown Smoked in Last 30 Days: No Use of substances other than those prescribed or required for medical reasons: Unknown Currently Displaying Signs/Symptoms of Drug Intoxication Withdrawal: No Any prior treatment program specific to substance use: No Have you been hit, kicked, punched, or otherwise hurt by someone within the past year? If so, by whom?: No (Pt denies, no obvious signs or symptoms of abuse.) Do you feel safe in your current relationship?: No Is there a partner from a previous relationship who is making you feel unsafe now?: No (Pt denies, speaks fondly of caregivers.) Are you made to feel afraid or neglected: No Advance Directives: No Do you have thoughts of harming others: None Do you have a plan to hurt others: No Plan Recently lost weight without trying: Unsure Eating poorly because of decreased appetite: No Nutrition Risks: No Nutritional Risk Poor oral hygiene: No service: No Current occupational status: disabled Meds Allergies Allergy/AdvReac Type Severity Reaction Status Date / Time No Known Allergies Allergy Verified 08/23/23 09:09 [No Known Allergies*] Active Medications: Current Medications Acetaminophen (Acetaminophen 325 Mg Tablet) 650 mg PO Q6H PRN PRN Reason: fever or pain Escitalopram Oxalate (Escitalopram Oxalate 10 Mg Tablet) 10 mg PO DAILY NINFA Finasteride (Finasteride 5 Mg Tablet) 5 mg PO DAILY NINFA Furosemide (Furosemide 20 Mg Tablet) 10 mg PO DAILY NINFA; Protocol Magnesium Oxide (Magnesium Oxide 400 Mg Tablet) 400 mg PO BIDPC NINFA Multivitamins/Vitamin C (Multivitamin Tablet) 1 tab PO DAILY NINFA Omeprazole (Omeprazole 40 Mg Capsule.Dr) 40 mg PO DAILY@0630 NINFA Tamsulosin HCl (Tamsulosin Hcl 0.4 Mg Capsule) 0.8 mg PO DAILY [facility] Triamcinolone Acetonide (Triamcinolone Acet 0.1 % Cream 15 Gm Tube) 1 appl TOPICAL DAILY PRN; Protocol PRN Reason: Rash Home Medications Medication Instructions Recorded Confirmed Last Taken Type acetaminophen 325 mg tablet 2 tab PO Q6H PRN fever or pain 12/13/22 10/19/23 Unknown History citalopram 20 mg tablet 1 tab PO QAM 12/13/22 10/19/23 Unknown History finasteride 5 mg tablet 1 tab PO QAM 12/13/22 10/19/23 Unknown History furosemide 20 mg tablet 10 mg PO QAM 12/13/22 10/19/23 Unknown History multivitamin 1 tab PO QAM 12/13/22 10/19/23 Unknown History omeprazole 20 mg capsule,delayed 2 cap PO QAM 12/13/22 10/19/23 Unknown History release tamsulosin 0.4 mg capsule 2 cap PO DAILY 12/13/22 10/19/23 Unknown History triamcinolone acetonide 0.1 % 1 appl topical DAILY PRN Rash 12/13/22 10/19/23 Unknown History topical cream Physical Exam 2 Vital Signs and Narrative: Vital Signs: Last Vital Signs Temp 98.8 F 10/19/23 16:20 Pulse 88 10/19/23 16:20 Resp 16 10/19/23 16:20 BP 112/48 L 10/19/23 16:20 Pulse Ox 93 10/19/23 16:20 O2 Del Method Room Air 10/19/23 16:20 BMI result Body Mass Index 20.3 Const: Other: Constitutional: Alert, in no distress, Mental Status: not able to assess orientation Eyes: Pupils are equal, round and reactive to light. Ear, Nose and Throat: Oropharynx clear, mucous membranes moist. Ears and nose without eformities. Trachea midline. Respiratory: Clear to auscultation. No wheezing, rales or rhonchi. Cardiovascular: S1 S2 regular. No murmurs, rubs or gallops. Gastrointestinal: Abdomen soft, non-tender, non-distended. Normal bowel sounds.? Neurologic: Cranial nerves II-XII grossly intact. No focal neurological deficits. Moves all extremities spontaneously.? Skin: No rashes or lesions.? Musculoskeletal: No cyanosis or clubbing. Psychiatric: Normal mood and affect? Results Labs 10/19/23 10:27 10/19/23 10:27 Labs: Laboratory Results - last 24 hr 10/19/23 10/19/23 10/19/23 10:27 13:42 14:24 MCV 88.1 MCH 28.9 MCHC 32.8 RDW 13.3 Plt Count 140 L MPV Not Reportable Immature Gran % (Auto) 0.2 Neut % (Auto) 93.7 H Lymph % (Auto) 4.9 L Warren % (Auto) 0.5 L Eos % (Auto) 0.2 Baso % (Auto) 0.5 Lymph # (Auto) 0.2 L Warren # (Auto) 0.0 L Eos # (Auto) 0.0 Baso # (Auto) 0.0 Abs Immat Gran (auto) 0.01 Absolute Neuts (auto) 4.0 Absolute Nucleated RBC 0.000 Nucleated RBC % (auto) 0.0 Smear Tech's Comments VERIFIED Anion Gap 13 Estim Creat Clear Calc 52.4 Estimated GFR > 60 Random Glucose 92 Lactic Acid 2.7 H* Calcium 9.2 D Magnesium 1.8 Total Bilirubin 0.5 AST 78 H ALT 44 H Alkaline Phosphatase 89 Total Creatine Kinase 39 Total Protein 6.6 Albumin 3.6 Lipase 25 Urine Color Urine Appearance Urine pH Ur Specific Chester Urine Protein Urine Glucose (UA) Urine Ketones Urine Blood Urine Nitrite Ur Leukocyte Esterase Urine RBC Urine WBC Ur Squamous Epith Cells Urine Bacteria Hyaline Casts COVID-19 ([facility]) Negative COVID-19 Clin Com See Note Influenza Type A (PCR) NEGATIVE Influenza Type B (PCR) NEGATIVE RSV RNA Qual (PCR) NEGATIVE SARS-CoV-2 RNA (RT-PCR) NEGATIVE 10/19/23 14:37 MCV MCH MCHC RDW Plt Count MPV Immature Gran % (Auto) Neut % (Auto) Lymph % (Auto) Warren % (Auto) Eos % (Auto) Baso % (Auto) Lymph # (Auto) Warren # (Auto) Eos # (Auto) Baso # (Auto) Abs Immat Gran (auto) Absolute Neuts (auto) Absolute Nucleated RBC Nucleated RBC % (auto) Smear Tech's Comments Anion Gap Estim Creat Clear Calc Estimated GFR Random Glucose Lactic Acid Calcium Magnesium Total Bilirubin AST ALT Alkaline Phosphatase Total Creatine Kinase Total Protein Albumin Lipase Urine Color Yellow Urine Appearance Turbid Urine pH 5.0 Ur Specific Chester 1.015 Urine Protein Trace Urine Glucose (UA) Negative Urine Ketones Trace Urine Blood Trace H Urine Nitrite Positive H Ur Leukocyte Esterase Moderate (2+) H Urine RBC 6-10 H Urine WBC 21-50 H Ur Squamous Epith Cells 3-5 Urine Bacteria 4+ Hyaline Casts 0-2 COVID-19 ([facility]) COVID-19 Clin Com Influenza Type A (PCR) Influenza Type B (PCR) RSV RNA Qual (PCR) SARS-CoV-2 RNA (RT-PCR) Imaging Radiologist's Impressions: Impressions Chest X-Ray 10/19/23 10:59 IMPRESSION: Left base pneumonia. Chest CT 10/19/23 15:06 IMPRESSION: 1. Multifocal infiltrates consistent with pneumonia. The largest area of infiltrate is in the left lower lobe corresponding to the abnormality seen on the chest radiograph. 2. Underlying changes of emphysema. 3. Other incidental findings described above. Fleischner guidelines were followed. Assessment and Plan (1) Pneumonia: Status: Acute (2) UTI symptoms: Status: Acute Plan ? 78?year old male with PMH significant for?cognitively delay, hypothyroidism, depression, IOL implant (2014) and frequent UTIs who is brought to the ED with reported increased urinary incontinence more than his baseline and found to have pneumonia, UTI and some abdominal pain 1. UTI 2. PNA -started on Ceftriaxone and Azithromcyin 3. Abdominal pain, probably related to UTI, will get non contrast CT to be sure 4. BPH--continue Finesteride, Flomax 5. Mood desorder, celexa dvt prophy lovenox full code need for inpatient: UTI, PNA need IV d/t high risk for sepsis, elevated troponin needs further tresting Quality Stroke Does the patient have a stroke diagnosis?: No VTE Prior VTE?: No VTE Risk Level:: Medical - moderate - high VTE Device Contraindication: Treatment Not Indicated VTE Drug Contraindication: N/A - Med Ordered
[2023-10-19 17:44] LABS: ~Lactic Acid-LAB USE ONLY 2.2 mmol/L (0.5-2.0)
[2023-10-19] MEDS: Magnesium Oxide 400 MG TABLET PO (18:44)
[2023-10-19 18:49] LABS: Reflex Lactate? 2 Y
[2023-10-19 19:24] LABS: ~Lactic Acid-LAB USE ONLY 3.5 mmol/L (0.5-2.0)
--- NOTE | 2023-10-19 19:24 | PC.NURSE ---
Spoke to Elva from lab who reported critical lactic acid level 3.5. Dr. Maldonado notified via [employer] message.
[2023-10-19] MEDS: 0.9 % Sodium Chloride Flush 3 ML SYRINGE IVFLUSH (22:00)
[2023-10-20 03:21] VITALS: BP 120/55; PULSE 76; RESP 20; TEMP 36.3; O2SAT 98
[2023-10-20 03:22] VITALS: BMI 21.6
[2023-10-20] MEDS: Omeprazole 40 MG CAPSULE.DR PO (05:54)
[2023-10-20 07:12] VITALS: BP 135/59; PULSE 72; RESP 20; TEMP 37.5; O2SAT 96
[2023-10-20 08:30] LABS: Lactic Acid 1.2 mmol/L (0.5-2.0)
[2023-10-20] MEDS: Finasteride 5 MG TABLET PO (09:16)
[2023-10-20] MEDS: Furosemide 20 MG TABLET 10 MG PO (09:16)
[2023-10-20] MEDS: Tamsulosin HCL 0.4 MG CAPSULE 0.8 MG PO (09:18)
[2023-10-20] MEDS: Escitalopram Oxalate 10 MG TABLET PO (09:18)
[2023-10-20] MEDS: Multivitamin TABLET 1 TAB PO (09:18)
[2023-10-20] MEDS: Magnesium Oxide 400 MG TABLET PO ×2 (09:18→15:57)
[2023-10-20] MEDS: Azithromycin 500 MG TABLET PO (09:18)
[2023-10-20] MEDS: 0.9 % Sodium Chloride Flush 3 ML SYRINGE IVFLUSH ×2 (09:24→15:15)
--- NOTE | 2023-10-20 10:12 | MHC.CM.PN ---
Patient lives in a [facility] Shared Living Setting with his Caregiver/Mary Grace, Mary Grace's Son and Patient's . CM spoke with Mary Grace @ [phone] and addressed IMM with her (original will be mailed certified letter to Mary Grace and a copy has been placed on the chart). Patient is active with [facility] and he uses a cane to assist with mobility. Home/resume said services is the goal and CM has initiated and will follow for dc planning. DDS Worker/Soraya is the HCP and the PCP is Dr. Usha Blancas.
--- NOTE | 2023-10-20 10:50 | P.PNIM_ITS ---
Subjective Subjective Date of Service: 10/20/23 Interval History: f/u on pna, uti and constipation interval history: feels better this morning, has had 2 large bm, CT showed constiapation Review of Systems no longer saying yes to abd pain Physical Exam 2 Vital Signs: Vital Signs: Last Vital Signs Temp 99.5 F 10/20/23 07:12 Pulse 72 10/20/23 07:12 Resp 20 10/20/23 07:12 BP 135/59 L 10/20/23 07:12 Pulse Ox 96 10/20/23 07:12 O2 Del Method Room Air 10/20/23 07:12 BMI result Body Mass Index 21.6 Const: Other: General: alert, non vergal Resp: CTA bilateral CVS: S1,S2,RRR GI: +BS, NT, no distention Skin: No rash Neuro: motor grossly intact Psych: appropriate affect Objective Data Active Medications Acetaminophen (Acetaminophen 325 Mg Tablet) 650 mg PO Q6H PRN PRN Reason: fever or pain Last Admin: 10/19/23 22:32 Dose: 650 mg Documented By: JEOVANY Acetaminophen (Acetaminophen 325 Mg Tablet) 650 mg PO Q6H PRN PRN Reason: Pain, Mild (Pain Scale 1-3) Azithromycin (Azithromycin 500 Mg Tablet) 500 mg PO Q24H [facility] Last Admin: 10/20/23 09:18 Dose: 500 mg Documented By: RIRI Enoxaparin Sodium (Enoxaparin Sodium 40 Mg/0.4 Ml Syringe) 40 mg SUBCUT Q24H [facility] Escitalopram Oxalate (Escitalopram Oxalate 10 Mg Tablet) 10 mg PO DAILY [facility] Last Admin: 10/20/23 09:18 Dose: 10 mg Documented By: RIRI Finasteride (Finasteride 5 Mg Tablet) 5 mg PO DAILY [facility] Last Admin: 10/20/23 09:16 Dose: 5 mg Documented By: RIRI Furosemide (Furosemide 20 Mg Tablet) 10 mg PO DAILY [facility]; Protocol Last Admin: 10/20/23 09:16 Dose: 10 mg Documented By: RIRI Ceftriaxone Sodium 1 gm/ (Sodium Chloride) 50 mls @ 100 mls/hr IV Q24H [facility] Magnesium Hydroxide (Milk Of Magnesia 30 Ml Oral.Susp) 30 ml PO DAILY PRN PRN Reason: Constipation Magnesium Oxide (Magnesium Oxide 400 Mg Tablet) 400 mg PO BIDPC [facility] Last Admin: 10/20/23 09:18 Dose: 400 mg Documented By: RIRI Multivitamins/Vitamin C (Multivitamin Tablet) 1 tab PO DAILY [facility] Last Admin: 10/20/23 09:18 Dose: 1 tab Documented By: RIRI Omeprazole (Omeprazole 40 Mg Capsule.) 40 mg PO DAILY@0630 [facility] Last Admin: 10/20/23 05:54 Dose: 40 mg Documented By: JEOVANY Ondansetron HCl (Ondansetron Hcl 4 Mg/2 Ml Vial) 4 mg IVPUSH Q8H PRN PRN Reason: Nausea and Vomiting Sodium Biphosphate/Sodium Phosphate (Sodium Phosphate,[place]-Dibasic 133 Ml Enema) 133 ml HI ONCE [facility] Sodium Chloride (0.9 % Sodium Chloride Flush 3 Ml Syringe) 3 ml IVFLUSH QSHIFT [facility] Last Admin: 10/20/23 09:24 Dose: 3 ml Documented By: RIRI Tamsulosin HCl (Tamsulosin Hcl 0.4 Mg Capsule) 0.8 mg PO DAILY [facility] Last Admin: 10/20/23 09:18 Dose: 0.8 mg Documented By: RIRI Triamcinolone Acetonide (Triamcinolone Acet 0.1 % Cream 15 Gm Tube) 1 appl TOPICAL DAILY PRN; Protocol PRN Reason: Rash Labs 10/19/23 10:27 10/19/23 10:27 Labs: Laboratory Results - last 24 hr 10/19/23 10/19/23 10/19/23 10:27 13:42 14:24 Plt Count 140 L Immature Gran % (Auto) 0.2 Neut % (Auto) 93.7 H Lymph % (Auto) 4.9 L Stone % (Auto) 0.5 L Eos % (Auto) 0.2 Baso % (Auto) 0.5 Lymph # (Auto) 0.2 L Stone # (Auto) 0.0 L Eos # (Auto) 0.0 Baso # (Auto) 0.0 Abs Immat Gran (auto) 0.01 Absolute Neuts (auto) 4.0 Absolute Nucleated RBC 0.000 Nucleated RBC % (auto) 0.0 Smear Tech's Comments VERIFIED Anion Gap 13 Estim Creat Clear Calc 52.4 Estimated GFR > 60 Random Glucose 92 Lactic Acid 2.7 H* Lactic Acid F/U @ 2Hr Lactic Acid F/U @ 4Hr Calcium 9.2 D Magnesium 1.8 Total Bilirubin 0.5 AST 78 H ALT 44 H Alkaline Phosphatase 89 Total Creatine Kinase 39 Total Protein 6.6 Albumin 3.6 Lipase 25 Urine Color Urine Appearance Urine pH Ur Specific [place] Urine Protein Urine Glucose (UA) Urine Ketones Urine Blood Urine Nitrite Ur Leukocyte Esterase Urine RBC Urine WBC Ur Squamous Epith Cells Urine Bacteria Hyaline Casts COVID-19 ([facility]) Negative COVID-19 Clin Com See Note Influenza Type A (PCR) NEGATIVE Influenza Type B (PCR) NEGATIVE RSV RNA Qual (PCR) NEGATIVE SARS-CoV-2 RNA (RT-PCR) NEGATIVE 10/19/23 10/19/23 10/19/23 14:37 16:42 18:58 Plt Count Immature Gran % (Auto) Neut % (Auto) Lymph % (Auto) Stone % (Auto) Eos % (Auto) Baso % (Auto) Lymph # (Auto) Stone # (Auto) Eos # (Auto) Baso # (Auto) Abs Immat Gran (auto) Absolute Neuts (auto) Absolute Nucleated RBC Nucleated RBC % (auto) Smear Tech's Comments Anion Gap Estim Creat Clear Calc Estimated GFR Random Glucose Lactic Acid Lactic Acid F/U @ 2Hr 2.2 H* Lactic Acid F/U @ 4Hr 3.5 H* Calcium Magnesium Total Bilirubin AST ALT Alkaline Phosphatase Total Creatine Kinase Total Protein Albumin Lipase Urine Color Yellow Urine Appearance Turbid Urine pH 5.0 Ur Specific [place] 1.015 Urine Protein Trace Urine Glucose (UA) Negative Urine Ketones Trace Urine Blood Trace H Urine Nitrite Positive H Ur Leukocyte Esterase Moderate (2+) H Urine RBC 6-10 H Urine WBC 21-50 H Ur Squamous Epith Cells 3-5 Urine Bacteria 4+ Hyaline Casts 0-2 COVID-19 ([facility]) COVID-19 Clin Com Influenza Type A (PCR) Influenza Type B (PCR) RSV RNA Qual (PCR) SARS-CoV-2 RNA (RT-PCR) 10/20/23 07:29 Plt Count Immature Gran % (Auto) Neut % (Auto) Lymph % (Auto) Stone % (Auto) Eos % (Auto) Baso % (Auto) Lymph # (Auto) Stone # (Auto) Eos # (Auto) Baso # (Auto) Abs Immat Gran (auto) Absolute Neuts (auto) Absolute Nucleated RBC Nucleated RBC % (auto) Smear Tech's Comments Anion Gap Estim Creat Clear Calc Estimated GFR Random Glucose Lactic Acid 1.2 Lactic Acid F/U @ 2Hr Lactic Acid F/U @ 4Hr Calcium Magnesium Total Bilirubin AST ALT Alkaline Phosphatase Total Creatine Kinase Total Protein Albumin Lipase Urine Color Urine Appearance Urine pH Ur Specific [place] Urine Protein Urine Glucose (UA) Urine Ketones Urine Blood Urine Nitrite Ur Leukocyte Esterase Urine RBC Urine WBC Ur Squamous Epith Cells Urine Bacteria Hyaline Casts COVID-19 ([facility]) COVID-19 Clin Com Influenza Type A (PCR) Influenza Type B (PCR) RSV RNA Qual (PCR) SARS-CoV-2 RNA (RT-PCR) Microbiology Microbiology Results: Microbiology 10/19/23 Unknown Urine Culture - Preliminary Urine Catheterized - Straight Catheter Culture in progress. Assessment and Plan (1) UTI symptoms: Status: Acute (2) Pneumonia: Status: Acute (3) Elevated troponin: Status: Acute Plan 78?year old male with PMH significant for?cognitively delay, hypothyroidism, depression, IOL implant (2014) and frequent UTIs who is brought to the ED with reported increased urinary incontinence more than his baseline and found to have pneumonia, UTI and some abdominal pain 1. UTI 2. PNA with hypoxia - Continue Ceftriaxone + Azithro, follow culture, clinically feels better 3. Abdominal pain, CT showed constipation, has had 2 large bms and pain resolved, 4. BPH--continue Finesteride, Flomax 5. Mood desorder, celexa 7. elevated troponin without chest pain or ecg, likely demand related to hypoxia, no further tesing at this time dvt prophy lovenox full code need for inpatient: UTI, PNA need IV d/t high risk for sepsis, pt has difficulty communicating his needs Quality Stroke Does the patient have a stroke diagnosis?: No VTE Prior VTE?: No VTE Risk Level:: Medical - moderate - high VTE Device Contraindication: Treatment Not Indicated VTE Drug Contraindication: N/A - Med Ordered
[2023-10-20 11:10] VITALS: BP 142/65; PULSE 102; RESP 20; TEMP 37.7; O2SAT 96
[2023-10-20] MEDS: Enoxaparin Sodium 40 MG/0.4 ML SYRINGE SUBCUT (12:04)
--- NOTE | 2023-10-20 12:52 | HO.WOUND ---
Addendum entered by Kay Finley RN 10/20/23 14:12: Right Lateral Buttock Original Note: Wound Consult: Initial 78yr old male admitted [place] [facility] [place] No10/19/23 17:33? - See progress notes and H&P for detailed history. Wound consult placed for Right lateral buttock rash - Not consistent with pressure and not consistent with moisture. Well defined cluster of small crusted round lesions - in various stages of healing. Pt denies pain denies itching. Provider ordered topical steroid - No other intervention needed at this time. Recommend follow up Out pt Dermatology if lesions worsen and or do not resolve. Re-consult wound care Nurse for wound deterioration or wound changes.
[2023-10-20 13:37] LABS: Troponin-I High Sensitivity 24.6 ng/L (<3.5-35.0)
[2023-10-20 13:41] LABS: Lactic Acid 2.1 mmol/L (0.5-2.0)
[2023-10-20] MEDS: cefTRIAXone sodium 1 GM in 0.9 % Sodium Chloride 50 ML IV (15:00)
[2023-10-20 15:11] LABS: Reflex Lactate? Lactic Acid Added
[2023-10-20 15:17] VITALS: BP 124/58; PULSE 100; RESP 18; TEMP 37.4; O2SAT 95
[2023-10-20 17:06] LABS: ~Lactic Acid-LAB USE ONLY 3.1 mmol/L (0.5-2.0)
[2023-10-20 18:15] LABS: Reflex Lactate? 2 Y
--- NOTE | 2023-10-20 19:03 | PM.EVENT ---
Event Note Date of Service: 10/20/23 Event Note: elevated lactic acid not due to sepsis Time Spent With Patient Time: Total time managing care of this patient today ____ minutes.
[2023-10-20 19:23] LABS: ~Lactic Acid-LAB USE ONLY 2.3 mmol/L (0.5-2.0)
[2023-10-20 19:40] VITALS: BP 116/58; PULSE 89; RESP 18; TEMP 37.7; O2SAT 96
[2023-10-20 23:25] VITALS: BP 136/60; PULSE 102; RESP 20; TEMP 37.2; O2SAT 95
[2023-10-21] VITALS (7 sets, daily range): BP systolic 110–139; BP diastolic 55–65; PULSE 75–111; RESP 18–20; TEMP 36.4–37.8; O2SAT 93–97
[2023-10-21] MEDS: Triamcinolone Acet 0.1 % Cream 15 GM TUBE 1 APPL TOPICAL (00:34)
[2023-10-21] MEDS: 0.9 % Sodium Chloride Flush 3 ML SYRINGE IVFLUSH ×4 (00:35→20:03)
[2023-10-21] MEDS: Omeprazole 40 MG CAPSULE.DR PO (05:32)
[2023-10-21] MEDS: Magnesium Oxide 400 MG TABLET PO ×2 (08:55→16:20)
[2023-10-21] MEDS: Furosemide 20 MG TABLET 10 MG PO (08:55)
[2023-10-21] MEDS: Finasteride 5 MG TABLET PO (08:55)
[2023-10-21] MEDS: ondansetron HCL 4 MG/2 ML VIAL IVPUSH (08:55)
[2023-10-21] MEDS: Multivitamin TABLET 1 TAB PO (08:55)
[2023-10-21] MEDS: Escitalopram Oxalate 10 MG TABLET PO (08:55)
[2023-10-21] MEDS: guaiFENesin 100 MG/5 ML LIQUID PO (08:55)
[2023-10-21] MEDS: Azithromycin 500 MG TABLET PO (08:55)
[2023-10-21] MEDS: Tamsulosin HCL 0.4 MG CAPSULE 0.8 MG PO (08:55)
[2023-10-21] MEDS: Enoxaparin Sodium 40 MG/0.4 ML SYRINGE SUBCUT (11:19)
--- NOTE | 2023-10-21 11:33 | HO.PM.IMPN ---
Subjective Subjective Date of Service: 10/21/23 Interval History: f/u on pna, uti and constipation interval history:he is seemingly better without active complaint, Review of Systems no longer saying yes to abd pain Physical Exam Vital Signs: Vital Signs: Last Vital Signs Temp 98.8 F 10/21/23 11:19 Pulse 111 H 10/21/23 11:19 Resp 20 10/21/23 11:19 BP 139/65 10/21/23 11:19 Pulse Ox 94 10/21/23 11:19 O2 Del Method Room Air 10/21/23 11:19 BMI result Body Mass Index 21.6 Const: Other: General: alert, non verbal Resp: CTA bilateral CVS: S1,S2,RRR GI: +BS, NT, no distention Skin: No rash Neuro: motor grossly intact Psych: appropriate affect Objective Data Active Medications Acetaminophen (Acetaminophen 325 Mg Tablet) 650 mg PO Q6H PRN PRN Reason: fever or pain Last Admin: 10/19/23 22:32 Dose: 650 mg Documented By: JEOVANY Acetaminophen (Acetaminophen 325 Mg Tablet) 650 mg PO Q6H PRN PRN Reason: Pain, Mild (Pain Scale 1-3) Azithromycin (Azithromycin 500 Mg Tablet) 500 mg PO Q24H [facility] Last Admin: 10/21/23 08:55 Dose: 500 mg Documented By: KATI Enoxaparin Sodium (Enoxaparin Sodium 40 Mg/0.4 Ml Syringe) 40 mg SUBCUT Q24H [facility] Last Admin: 10/21/23 11:19 Dose: 40 mg Documented By: KATI Escitalopram Oxalate (Escitalopram Oxalate 10 Mg Tablet) 10 mg PO DAILY [facility] Last Admin: 10/21/23 08:55 Dose: 10 mg Documented By: KATI Finasteride (Finasteride 5 Mg Tablet) 5 mg PO DAILY [facility] Last Admin: 10/21/23 08:55 Dose: 5 mg Documented By: KATI Furosemide (Furosemide 20 Mg Tablet) 10 mg PO DAILY [facility]; Protocol Last Admin: 10/21/23 08:55 Dose: 10 mg Documented By: KATI Guaifenesin (Guaifenesin 100 Mg/5 Ml Liquid) 5 ml PO Q6H PRN PRN Reason: Cough Last Admin: 10/21/23 08:55 Dose: 5 ml Documented By: KATI Ceftriaxone Sodium 1 gm/ (Sodium Chloride) 50 mls @ 100 mls/hr IV Q24H [facility] Last Infusion: 10/20/23 15:57 Dose: Infused Documented By: RIRI Magnesium Hydroxide (Milk Of Magnesia 30 Ml Oral.Susp) 30 ml PO DAILY PRN PRN Reason: Constipation Magnesium Oxide (Magnesium Oxide 400 Mg Tablet) 400 mg PO BIDPC [facility] Last Admin: 10/21/23 08:55 Dose: 400 mg Documented By: KATI Multivitamins/Vitamin C (Multivitamin Tablet) 1 tab PO DAILY [facility] Last Admin: 10/21/23 08:55 Dose: 1 tab Documented By: KATI Omeprazole (Omeprazole 40 Mg Capsule.Dr) 40 mg PO DAILY@0630 [facility] Last Admin: 10/21/23 05:32 Dose: 40 mg Documented By: JEOVANY Ondansetron HCl (Ondansetron Hcl 4 Mg/2 Ml Vial) 4 mg IVPUSH Q8H PRN PRN Reason: Nausea and Vomiting Last Admin: 10/21/23 08:55 Dose: 4 mg Documented By: KATI Sodium Biphosphate/Sodium Phosphate (Sodium Phosphate,[place]-Dibasic 133 Ml Enema) 133 ml [place] ONCE [facility] Sodium Chloride (0.9 % Sodium Chloride Flush 3 Ml Syringe) 3 ml IVFLUSH QSHIFT [facility] Last Admin: 10/21/23 08:55 Dose: 3 ml Documented By: KATI Tamsulosin HCl (Tamsulosin Hcl 0.4 Mg Capsule) 0.8 mg PO DAILY [facility] Last Admin: 10/21/23 08:55 Dose: 0.8 mg Documented By: KATI Triamcinolone Acetonide (Triamcinolone Acet 0.1 % Cream 15 Gm Tube) 1 appl TOPICAL DAILY PRN; Protocol PRN Reason: Rash Last Admin: 10/21/23 00:34 Dose: 1 appl Documented By: JEOVANY Labs 10/19/23 10:27 10/19/23 10:27 Labs: Laboratory Results - last 24 hr 10/20/23 10/20/23 10/20/23 13:07 16:11 19:00 Lactic Acid 2.1 H* Lactic Acid F/U @ 2Hr 3.1 H* Lactic Acid F/U @ 4Hr 2.3 H* Microbiology Microbiology Results: Microbiology 10/19/23 Unknown Urine Culture - Preliminary Urine Catheterized - Straight Catheter Gram negative francisco 10/19/23 14:24 Blood Culture - Preliminary Blood - Venous No growth after 24 hours. 10/19/23 14:19 Blood Culture - Preliminary Blood - Venous No growth after 24 hours. Assessment and Plan (1) UTI symptoms: Status: Acute (2) Pneumonia: Status: Acute (3) Elevated troponin: Status: Acute Plan 78?year old male with PMH significant for?cognitively delay, hypothyroidism, depression, IOL implant (2014) and frequent UTIs who is brought to the ED with reported increased urinary incontinence more than his baseline and found to have pneumonia, UTI and some abdominal pain 1. UTI--Urine culture growing GNR 2. PNA with hypoxia - Continue Ceftriaxone + Azithro, follow culture, clinically feels better -culture sensitivity 3. Abdominal pain, CT showed constipation, has had BMS with resolution of pain 4. BPH--continue Finesteride, Flomax 5. Mood desorder, celexa 7. elevated troponin without chest pain or ecg, likely demand related to hypoxia, no further testing at this time 8. Acute lactic acidosis, not due to sepsis dvt prophy lovenox full code need for inpatient: UTI, PNA need IV d/t high risk for sepsis, pt has difficulty communicating his needs, awaiting culture result I updated Shyanne his healthcare associate over the phone Quality Stroke Does the patient have a stroke diagnosis?: No VTE Prior VTE?: No VTE Risk Level:: Medical - moderate - high VTE Device Contraindication: Treatment Not Indicated VTE Drug Contraindication: N/A - Med Ordered
[2023-10-21 13:39] LABS: Hematocrit 35.2 % (42.0-52.0); Mean Corpuscular HGB Conc 34.1 g/dl (31.0-36.0); Mean Platelet Volume 9.8 fL (9.4-12.4); Platelet Count 112 X10*3/uL (160-400); Red Blood Count 4.14 X10*6/uL (4.60-5.80); Red Cell Distribution Width 13.3 % (11.0-16.0); White Blood Count 10.1 X10*3/uL (4.8-10.8)
[2023-10-21 13:52] LABS: Anion Gap 11 (12-20); Blood Urea Nitrogen 17 mg/dL (9-16); Calcium 8.6 mg/dL (8.4-10.2); Carbon Dioxide 21 mmol/L (22-29); Chloride 105 mmol/L (96-108); Creatinine Clr Calc Pharmacy 88.6; Estimated Glomerular Filt Rate > 60; Glucose Random 129 mg/dL (60-115); Potassium 3.5 mmol/L (3.3-5.1); Sodium 133 mmol/L (135-145)
[2023-10-21] MEDS: cefTRIAXone sodium 1 GM in 0.9 % Sodium Chloride 50 ML IV (16:20)
[2023-10-21] MEDS: Acetaminophen 325 MG TABLET 650 MG PO (20:02)
[2023-10-22 03:14] VITALS: BP 118/58; PULSE 71; RESP 18; TEMP 36.4; O2SAT 94
[2023-10-22] MEDS: Omeprazole 40 MG CAPSULE.DR PO (06:07)
[2023-10-22 07:22] VITALS: BP 138/65; PULSE 80; RESP 18; TEMP 36.6; O2SAT 95
[2023-10-22] MEDS: Tamsulosin HCL 0.4 MG CAPSULE 0.8 MG PO (09:38)
[2023-10-22] MEDS: Finasteride 5 MG TABLET PO (09:38)
[2023-10-22] MEDS: Escitalopram Oxalate 10 MG TABLET PO (09:39)
[2023-10-22] MEDS: Enoxaparin Sodium 40 MG/0.4 ML SYRINGE SUBCUT (09:39)
[2023-10-22] MEDS: Magnesium Oxide 400 MG TABLET PO (09:39)
[2023-10-22] MEDS: Multivitamin TABLET 1 TAB PO (09:39)
[2023-10-22] MEDS: Azithromycin 500 MG TABLET PO (09:39)
[2023-10-22] MEDS: Furosemide 20 MG TABLET 10 MG PO (09:39)
[2023-10-22] MEDS: 0.9 % Sodium Chloride Flush 3 ML SYRINGE IVFLUSH (09:40)
[2023-10-22 11:12] VITALS: BP 133/62; PULSE 85; RESP 18; TEMP 37.1; O2SAT 97
--- NOTE | 2023-10-22 12:50 | PM.DS ---
DS: Providers Provider Date of Service: 10/22/23 Date of admission: 10/19/23 17:33 Primary care physician: Usha Blancas MD Consults: 10/20/23 03:50 Consult to Wound Care Routine Reason for consultation: left femur rash Has provider been notified: Yes 10/20/23 11:09 Consult to Wound Care Routine Reason for consultation: right upper thigh rash/cellulitis? DS: Diagnosis Discharge Diagnosis (1) UTI symptoms: Status: Resolved (2) Pneumonia: Status: Resolved (3) Elevated troponin: Status: Resolved DS: Summary Hospital Course Hospital Course: Admiting HPI Chief Complaint: Shortness of breath ?78?year old male with PMH significant for?cognitively delay, hypothyroidism, depression, IOL implant (2014) and frequent UTIs who is brought to the ED with reported increased urinary incontinence more than his baseline. He doesn't communicate at base line but sasys yes and no. He lives at home with his and caregiver. Patient was grimacing and when asked if he is having pain point to his lower abdomen. There is reported that he vomitted prior to coming in. Work up has included positive UA, elevaed lactic acid of 2.7, troponin of 83. Covid, RSV, flu negative. Chest Xray show left base pneumonia, CT of chest show Multifocal infiltrates consistent with pneumonia. The larg est area of infiltrate is in the left lower lobe corresponding to the abnormality seen on the chest radiograph. ED has given AZithro and Ceftriaxone. WBC is 4, he has no fever Hospital course: Patient presented with shortness of breath and abdominal discomfort. He was diagnosed with pneumonia and a urinary tract infection (UTI) and started on azithromycin and ceftriaxone. A CT scan of the abdomen and pelvis was done due to his abdominal pain and difficulty providing a detailed history. The CT scan showed severe constipation. Ceftriaxone successfully treated both the pneumonia and UTI. The patient is now afebrile with a normal white blood cell count and breathing easily. He will be transitioned to oral cefuroxime (Ceftin) for 10 days to complete treatment for both infections. Regarding the abdominal pain, the CT scan confirmed constipation. The patient has had a bowel movement, and a repeat CT scan shows only mild constipation. Colace 100mg twice daily (bid) and daily Miralax PRN will be added to his medication regimen. The patient had a mild elevation in troponin levels, but there were no ischemic changes on the ECG and no chest pain. A repeat troponin I test returned to normal, likely due to her initial hypoxia. ( Acute lactic acidosis was not due to sepsis, rather intial hypoxia Time Attestation Discharge coordination time: Greater than 30 minutes Quality: Safe Use of Opioids Does Pt have an Active Cancer Diagnosis on the Problem List?: No Quality: Stroke Does the patient have a stroke diagnosis?: No Physical Exam Vital Signs: Vital Signs: Last Vital Signs Temp 98.8 F 10/22/23 11:12 Pulse 85 10/22/23 11:12 Resp 18 10/22/23 11:12 BP 133/62 10/22/23 11:12 Pulse Ox 97 10/22/23 11:12 O2 Del Method Room Air 10/22/23 11:12 BMI result Body Mass Index 21.6 DS: Data Data Completed and Pending Labs on day of discharge: Laboratory Results - last 24 hr 10/21/23 10/21/23 13:14 13:32 WBC 10.1 RBC 4.14 L Hgb 12.0 L Hct 35.2 L MCV 85.0 MCH 29.0 MCHC 34.1 RDW 13.3 Plt Count 112 L MPV 9.8 Absolute Nucleated RBC 0.000 Nucleated RBC % (auto) 0.0 Sodium 133 L Potassium 3.5 Chloride 105 Carbon Dioxide 21 L Anion Gap 11 L BUN 17 H Creatinine 0.75 Estim Creat Clear Calc 88.6 Estimated GFR > 60 Random Glucose 129 H Lactic Acid 2.0 Calcium 8.6 D Preliminary micro results at discharge 10/19/23 14:24 Blood Culture - Preliminary Blood - Venous No growth after 48 hours. 10/19/23 14:19 Blood Culture - Preliminary Blood - Venous No growth after 48 hours. Discharge Plan Discharge Anticipated Discharge Date/Time: 10/22/23 12:41 Patient Disposition: Home, Self-Care Discharge Diagnosis: UTI and Pneumonia Referrals: [facility] [Outside] - 1 Day Usha Blancas MD [Primary Care Provider] - 1 Week Discharge Medications: New cefuroxime axetil 500 mg tablet 500 mg PO BID 6 Days Qty: 12 0RF docusate sodium [Colace] 100 mg capsule 100 mg PO BID Qty: 60 0RF polyethylene glycol 3350 [Miralax] 17 gram/dose powder 17 g PO DAILY PRN (Reason: constipation) Qty: 510 0RF Continued acetaminophen 325 mg tablet 2 tab PO Q6H PRN (Reason: fever or pain) citalopram 20 mg tablet 1 tab PO QAM tamsulosin 0.4 mg capsule 2 cap PO DAILY omeprazole 20 mg capsule,delayed release(DR/EC) 2 cap PO QAM furosemide 20 mg tablet 10 mg PO QAM finasteride 5 mg tablet 1 tab PO QAM multivitamin Tablet 1 tab PO QAM triamcinolone acetonide 0.1 % Cream 1 appl TOPICAL DAILY PRN (Reason: Rash) magnesium oxide 400 mg (241.3 mg magnesium) Tablet 400 mg PO BIDPC 30 Days Qty: 60 0RF Discharge Orders: Discharge Order (Routine); Ordered 10/22/23 Ordered By: Fam Flores Diet: chopped diet Activity on Discharge: As tolerated Stand Alone Forms: Patient Portal Discharge page Care Plan Goals: Full recovery from UTI and pneumonia Health Concerns: pneumonia UTI Plan of Treatment: Take Cefuroxime as recommeded for UTI and Pneumonia Follow up with your Doctor in a wee Assessment: see above Discharge Date/Time: 10/22/23 17:40
--- NOTE | 2023-10-22 15:03 | MHC.CM.PN ---
Addendum entered by Joan Washington 10/22/23 15:20: CM RECEIVED A RETURN CALL FROM AMOS FRANCES RN. SHE CONFIRMED FAX NUMBER THAT DCS WAS SENT TO AND THAT SERVICES WILL RESUME TOMORROW Original Note: CM INFORMED PT CLEAR TO DC CM CALLED PTS SENIOR MECHANICAL DEVELOPMENT ENGINEER/SHARED HOME PROVIDER, [facility] [phone] SHE REPORTS THE ONLY THING NEEDED FOR PTS DC IS FOR [facility] TO RECEIVE THE DCS SHE SAYS SHE WILL PASS ON THE PAPERWORK TO DDS BR[facility] CHOWDHUR[facility] WAS NOTIFIED OF DC VIA [employer], THE DCS WAS ALSO FAXED TO THEM AT BOTH NUMBERS ON FILE [phone] AND A MESSAGE WAS LEFT VIA T/C [phone]. [facility] WILL TRANSPORT PT
[2023-10-22 15:51] VITALS: BP 139/48; PULSE 83; RESP 17; TEMP 37.1; O2SAT 97
== END 2023-10-22 17:40 | disposition home or self-care (01) | DRG 194 ==
LOC: HO.ED 14:47 → HO.EDOVER 17:41 → HO.IMC 18:53
PROVIDERS: Physician Assistant; Student in an Organized Health Care Education/Training Program; Admitting Provider Internal Medicine; Emergency Provider Emergency Medicine; PCP Internal Medicine; Visit Provider Internal Medicine
DX: J18.9 Pneumonia, unspecified organism (principal); E87.21 Acute metabolic acidosis; N39.0 Urinary tract infection, site not specified; N40.1 Benign prostatic hyperplasia with lower urinary tract symptoms; F39 Unspecified mood [affective] disorder; F79 Unspecified intellectual disabilities; K59.00 Constipation, unspecified; N39.498 Other specified urinary incontinence; Z20.822 Contact with and (suspected) exposure to COVID-19; Z87.440 Personal history of urinary (tract) infections; Z79.899 Other long term (current) drug therapy
CPT/HCPCS: 0241U; 36415; 71045; 71250; 74176; 80048; 80053; 81001; 82550; 83605; 83690; 83735; 84484; 85025; 85027; 87040; 87086; 87088; 87186; 87635; 93005; 99285; J0456; J0696; J1650; J2405

== ENCOUNTER → 2023-10-19 10:04 | Outpatient (BNV) | payer MEDICARE, MEDICAID, SELFPAY | PROVIDERS: Admitting Provider Internal Medicine; Emergency Provider Emergency Medicine; PCP Internal Medicine; Visit Provider Internal Medicine Cardiovascular Disease | DX: R06.02 Shortness of breath (principal) | CPT/HCPCS: 93010 ==

== ENCOUNTER → 2023-10-19 17:33 | Outpatient (BNV) | payer MEDICARE, MEDICAID, SELFPAY | PROVIDERS: Admitting Provider Internal Medicine; Emergency Provider Emergency Medicine; PCP Internal Medicine; Visit Provider Internal Medicine | DX: R39.9 Unspecified symptoms and signs involving the genitourinary system (principal); J18.9 Pneumonia, unspecified organism; R79.89 Other specified abnormal findings of blood chemistry | CPT/HCPCS: 99223; 99232; 99239 ==

== ENCOUNTER 2023-12-30 08:55 | Outpatient (AMB) | payer MEDICARE, MEDICAID, SELFPAY ==
--- NOTE | 2023-12-30 09:07 | AM.OFFWIN_ITS ---
Intake Vital Signs 12/30/23 09:17 BP 110/60 Blood Pressure Location Rt brachial Position Sitting Intake Visit Reasons: EST/possible uti (matti) Intake Note: Patient here for possible UTI that has been present for about 2 days. He has been experiencing hallucinations and sweats. Patient Tobacco Use Status: Tobacco use Unknown Allergies No Known Allergies [No Known Allergies*] Allergy (Verified 12/30/23 09:16) Medication List - Last Reconciled 12/30/23 by Taryn Mc MD acetaminophen 2 tabs PO Q6H PRN cefuroxime axetil 500 mg PO BID 6 days citalopram 1 tab PO QAM docusate sodium (Colace) 100 mg PO BID finasteride 1 tab PO QAM furosemide 10 mg PO QAM magnesium oxide 400 mg PO BIDPC 30 days multivitamin 1 tab PO QAM omeprazole 2 caps PO QAM polyethylene glycol 3350 (Miralax) 17 grams PO DAILY PRN tamsulosin 2 caps PO DAILY triamcinolone acetonide 0.1% 1 appl topical DAILY PRN Do you need a note to return to daycare/school/sports/work: No HPI EST/possible uti (matti) HPI Details Patient is a 78-year-old gentlemen who is prone to get recurrent UTIs Established with urologist and primary care is aware Have chronic urinary incontinence and wears diapers Came in here today with a family member, who tells me that she is suspecting another UTI Since patient told her that he is seeing monster on the ceiling and then this morning he complained of feeling cold UA shows signs of infection I have sent Levaquin 500 mg to be taken once a day for 5 days Patient is to follow-up with either urologist or primary care within 5 days to have repeat urinalysis Review system reveals no nausea vomiting diarrhea, patient is complaining of no abdominal pain He is eating at his baseline [facility] Medical History Hypertension Intellectual disability Social History Household Members: Other Housing: Other Housing Other:: Snf Do you presently have visiting nurse or other home services: Yes Unable to assess alcohol history related to: Unknown Alcohol intake: never Patient Tobacco Use Status: Tobacco use Unknown service: No Current occupational status: disabled Review of Systems Const All systems reviewed & are unremarkable except as noted in HPI and below Physical Exam Vital Signs: Last Vital Signs BP 110/60 12/30/23 09:17 Const General: no acute distress Eyes General: appearance normal, both eyes and all related structures Resp Effort & Inspection: normal respiratory effort Auscultation: clear to auscultation bilaterally GI Other: Soft nontender son positive General: Yes no CVA tenderness Back/Spine/Pelvis Back: no CVA tenderness Results AMB Urinalysis, Automated UA Leukoctes 125 Lonnie/uL Last Edit by Desiree Rodriguez CCM on 12/30/23 09: 23 UA Nitrite Negative Last Edit by Desiree Rodriguez [facility] [place] on 12/30/23 09:23 UA Urobilinogen 0.2 mg/dL Last Edit by Desiree Rodriguez [facility] [place] on 12/30/23 09:23 UA Protein 0 mg/dL Last Edit by Desiree Rodriguez [facility] [place] on 12/30/23 09:23 UA pH 6.0 Last Edit by Desiree Rodriguez [facility] [place] on 12/30/23 09:23 UA Blood 0 Ted/uL Last Edit by Desiree Rodriguez [facility] [place] on 12/30/23 09:23 UA Specific [place] 1.020 Last Edit by Desiree Rodriguez [facility] [place] on 12/30/23 09:23 UA Ketone Negative Last Edit by Desiree Rodriguez [facility] [place] on 12/30/23 09:23 UA Bilirubin 0 mg/dL Last Edit by Desiree Rodriguez [facility] [place] on 12/30/23 09:23 UA Glucose 0 mg/dL Last Edit by Desiree Rodriguez [facility] [place] on 12/30/23 09:23 Results Reviewed Results Reviewed: Laboratory Last Values Urine pH (Auto) 6.0 12/30/23 09:22 Specific [place] (Auto) 1.020 12/30/23 09:22 Urine Protein (Auto) 0 mg/dL 12/30/23 09:22 Glucose (UA)(Auto) 0 mg/dL 12/30/23 09:22 Urine Ketones (Auto) Negative 12/30/23 09:22 Urine Blood (Auto) 0 Ted/uL 12/30/23 09:22 Urine Nitrite (Auto) Negative 12/30/23 09:22 Urine Bilirubin (Auto) 0 mg/dL 12/30/23 09:22 Urine Urobilinogen (Auto) 0.2 mg/dL 12/30/23 09:22 Leukocyte Esterase (Auto) 125 Lonnie/uL 12/30/23 09:22 Assessment & Plan Assessment & Plan (1) Urinary tract infection: Code(s): N39.0 - Urinary tract infection, site not specified Qualifiers: Urinary tract infection type: acute cystitis Hematuria presence: without hematuria Qualified Code(s): N30.00 - Acute cystitis without hematuria Plan Patient is a 78-year-old gentlemen who is prone to get recurrent UTIs Established with urologist and primary care is aware Have chronic urinary incontinence and wears diapers Came in here today with a family member, who tells me that she is suspecting another UTI Since patient told her that he is seeing monster on the ceiling and then this morning he complained of feeling cold UA shows signs of infection I have sent Levaquin 500 mg to be taken once a day for 5 days Patient is to follow-up with either urologist or primary care within 5 days to have repeat urinalysis Review system reveals no nausea vomiting diarrhea, patient is complaining of no abdominal pain He is eating at his baseline Orders: Orders Urine Culture Today N39.0 - Urinary tract infection, site not specified AMB Urinalysis Automated Today Z13.9 - Encounter for screening, unspecified Medications: New levofloxacin 500 mg PO DAILY 5 days 5 tabs 0RF Coding Level of Care Code Est Pt Level 3 (50471) Diagnoses Acute cystitis without hematuria N30.00 Urinary tract infection type: acute cystitis Hematuria presence: without hematuria
[2023-12-30 09:17] VITALS: BP 110/60
== END 2023-12-30 09:36 | disposition home or self-care (01) ==
PROVIDERS: PCP Internal Medicine; Visit Provider Internal Medicine
DX: N30.00 Acute cystitis without hematuria (principal)
CPT/HCPCS: 81003; 99213

== ENCOUNTER 2023-12-30 12:47 | Outpatient (REF) | payer MEDICARE, MEDICAID, SELFPAY | END 2023-12-30 12:48 | disposition home or self-care (01) | LOC: HO.HMGCLNP 12:47 | PROVIDERS: Visit Provider Internal Medicine | DX: N39.0 Urinary tract infection, site not specified (principal) | CPT/HCPCS: 87086 ==

== ENCOUNTER 2024-02-10 11:46 | Outpatient (AMB) | payer MEDICARE, MEDICAID, SELFPAY ==
[2024-02-10 12:01] VITALS: BP 110/60; PULSE 64; TEMP 36.3; O2SAT 99; BMI 23.1
--- NOTE | 2024-02-10 12:01 | AM.OFFWIN_ITS ---
Intake Vital Signs 02/10/24 12:01 Height 6 ft Weight 170 lb BMI 23.1 BP 110/60 Blood Pressure Location Lt brachial Position Sitting Pulse 64 Pulse Source Pulse Oximeter Temp 97.3 F Temp Source Temporal Artery Scan Pulse Oximetry (%) 99 Oxygen Delivery Method Room Air Intake Visit Reasons: UTI Symptoms (lobby) Intake Note: pt is here today for UTI started 1 week ago Patient Tobacco Use Status: Tobacco use Unknown Allergies No Known Allergies [No Known Allergies*] Allergy (Verified 02/10/24 12:06) Do you need a note to return to daycare/school/sports/work: No HPI HPI Comments History of Present Illness Details 79-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 Patient has a past medical history of UTIs. The patient is poor historian so no other historical information can be obtained [facility] Medical History Hypertension Intellectual disability Social History Household Members: Other Housing: Other Housing Other:: [facility]iary Do you presently have visiting nurse or other home services: Yes Unable to assess alcohol history related to: Unknown Alcohol intake: never Patient Tobacco Use Status: Tobacco use Unknown service: No Current occupational status: disabled Review of Systems Const All systems reviewed & are unremarkable except as noted in HPI and below Physical Exam Vital Signs: Last Vital Signs Temp 97.3 F 02/10/24 12:01 Pulse 64 02/10/24 12:01 BP 110/60 02/10/24 12:01 Pulse Ox 99 02/10/24 12:01 Oxygen Delivery Method Room Air 02/10/24 12:01 BMI result Body Mass Index 23.1 Const General: healthy appearing and no acute distress Results AMB Urinalysis, Automated UA Leukoctes 70 Lonnie/uL Last Edit by Wayne Gonzalez CMA on 02/10/24 12:14 UA Nitrite Negative Last Edit by Wayne Gonzalez CMA on 02/10/24 12:14 UA Urobilinogen 0.2 mg/dL Last Edit by Wayne Gonzalez CMA on 02/10/24 12 :14 UA Protein 15 mg/dL Last Edit by Wayne Gonzalez CMA on 02/10/24 12:14 UA pH 8.0 Last Edit by Wayne Gonzalez, PRATEEK on 02/10/24 12:14 UA Blood 200 Ted/uL Last Edit by Wayne Gonzalez, PRATEEK on 02/10/24 12:14 UA Specific [place] 1.010 Last Edit by Wayne Gonzalez, PRATEEK on 02/10/24 12:14 UA Ketone Negative Last Edit by Wayne Gonzalez CMA on 02/10/24 12:14 UA Bilirubin 0 mg/dL Last Edit by Wayne Gonzalez, PRATEEK on 02/10/24 12:14 UA Glucose 0 mg/dL Last Edit by Wayne Gonzalez CMA on 02/10/24 12:14 Results Reviewed Results Reviewed: Results of the urinalysis were reviewed with the patient and the patient attendant. Assessment & Plan Assessment & Plan (1) UTI (urinary tract infection): Code(s): N39.0 - Urinary tract infection, site not specified Plan The patient will go back on Levaquin. On follow up with the urologist. The patient attendant we will call Urology for a possible daily preventative dose of Macrobid Orders: Orders AMB Urinalysis Automated Today Z13.9 - Encounter for screening, unspecified Medications: New levofloxacin 500 mg PO DAILY 5 days 5 tabs 0RF Coding Level of Care Code Est Pt Level 3 (27416) Diagnoses UTI (urinary tract infection) N39.0
== END 2024-02-10 16:13 | disposition home or self-care (01) ==
PROVIDERS: PCP Internal Medicine; Visit Provider Physician Assistant Medical
DX: N39.0 Urinary tract infection, site not specified (principal)
CPT/HCPCS: 81003; 99213

== ENCOUNTER 2024-02-11 22:38 | Inpatient (IN) | payer MEDICARE, MEDICAID, SELFPAY ==
--- NOTE | ~2024-02-11 | CT_ITS ---
EXAMINATION: CT ABDOMEN AND PELVIS WITH CONTRAST CLINICAL INFORMATION: Fever. Abdominal pain. Vomiting. COMPARISON: None available. TECHNIQUE: Multidetector volumetric images were obtained from the superior aspect of the liver through the pubic symphysis following administration 85 mL of Omnipaque 350 intravenous contrast. Sagittal and coronal reformatted images were obtained on the technologist's workstation. Oral contrast: No This CT examination was performed using dose optimization techniques as appropriate, variously including the following: *Automated exposure control *Adjustment of mA and/or kV according to patient size (this includes techniques or standardized protocols for targeted exams where dose is matched to indication/reason for exam; i.e. extremities or head) *Use of iterative reconstruction technique DLP: 85 mGy-cm FINDINGS: LUNG BASES: There are bilateral lower lobe infiltrates which were present previously but appears more prominent currently on the left. LIVER, GALLBLADDER, AND BILIARY TREE: The liver is normal in size, shape, and attenuation. No focal hepatic lesion or biliary ductal dilatation is present. There has been a prior cholecystectomy. PANCREAS: Unremarkable. SPLEEN: Unremarkable. ADRENAL GLANDS: Unremarkable. KIDNEYS AND URETERS: The kidneys are normal in size, shape, and attenuation. No hydronephrosis, hydroureter, or calculi seen. No perinephric stranding. There are a few stable bilateral renal cysts and parapelvic cysts. BLADDER: There is mild urinary bladder wall thickening. GASTROINTESTINAL TRACT: There are mildly thickened small bowel loops throughout. ABDOMINAL WALL: No significant hernia is appreciated. LYMPH NODES: Normal. VASCULAR: Unremarkable. PELVIC VISCERA: The prostate gland is enlarged measuring 5.7 x 5.5 x 6.6 cm. OSSEOUS STRUCTURES: There is mild diffuse thoracolumbar disc and facet degenerative change with grade [address]/CT abdomen pelvis w IV con IMPRESSION: Mildly thickened small bowel loops throughout the abdomen suggestive of enteritis. Enlarged prostate gland. Urinary bladder wall thickening may be related to chronic outlet obstruction. Bilateral lower lobe infiltrates, left greater than right. Recurrent pneumonia superimposed on chronic change on the left is a consideration. Fleischner guidelines were followed.
--- NOTE | ~2024-02-11 | XR_ITS ---
EXAMINATION: XR CHEST CLINICAL INFORMATION: Vomiting. Shortness of breath. COMPARISON: Chest x-ray October 19, 2023. CT of chest October 26, 2023 TECHNIQUE: Frontal portable view of the chest was obtained. 11:43 PM FINDINGS: No change of the multifocal airspace opacities, which are most pronounced at the lung bases, when compared with chest x-ray and CT of 2022. No significant pleural effusion. No pulmonary vascular heart size is normal. Cardiac mediastinal contours are normal. XR/XR chest 1V IMPRESSION: Multifocal bilateral airspace opacities. No change since prior chest x-ray 2022.
--- NOTE | 2024-02-11 22:48 | ECG_ITS ---
Test Reason : shortness of breath Blood Pressure : / mmHG Vent. Rate : 093 BPM Atrial Rate : 093 BPM P-R Int : 136 ms QRS Dur : 094 ms QT Int : 334 ms P-R-T Axes : 075 088 -31 degrees QTc Int : 415 ms Normal sinus rhythm Possible Left atrial enlargement T wave abnormality, consider inferior ischemia Abnormal ECG When compared with ECG of 19-OCT-2023 10:11, ST no longer elevated in Lateral leads T wave inversion now evident in Inferior leads Referred By: Donavan Jose Electronically Signed By:Reg Rodarte
[2024-02-11 22:52] VITALS: BP 119/43; BP 138/80; PULSE 95; PULSE 98; RESP 18; TEMP 36.4; O2SAT 78; O2SAT 97; BMI 28.1
[2024-02-11] MEDS: 0.9 % Sodium Chloride 1,000 ML 999 ML IV (23:23)
--- NOTE | 2024-02-11 23:27 | ED.GENADULT ---
HPI - General Adult General Chief complaint: Dyspnea Stated complaint: N/V HYPOXIA 78% ON RA, 94% 15 LPM Time Seen by Provider: 02/11/24 22:40 History of Present Illness HPI narrative: The patient is an 79-year-old male with a history of developmental delay who also has a history of frequent UTIs. Yesterday the patient was seen at an urgent care center for urinary symptoms and was diagnosed with a UTI and started on levofloxacin 500 mg daily for 5 days. Today the patient apparently had vomiting and coughing and seemed short of breath. The family called an ambulance. Paramedics say the patient was hypoxic with an oxygen saturation in the 70s. They placed him on a non-rebreather and brought him to the emergency room. The patient seems to have significant developmental delay and is not a very verbal person. Indicated that he had abdominal pain but no other pains. He was not able to give additional history. Related Data Home Medications ?Medication ?Instructions ?Recorded ?Confirmed acetaminophen 325 mg tablet 2 tab PO Q6H PRN fever or pain 12/13/22 12/30/23 citalopram 20 mg tablet 1 tab PO QAM 12/13/22 12/30/23 finasteride 5 mg tablet 1 tab PO QAM 12/13/22 12/30/23 furosemide 20 mg tablet 10 mg PO QAM 12/13/22 12/30/23 multivitamin 1 tab PO QAM 12/13/22 12/30/23 omeprazole 20 mg capsule,delayed 2 cap PO QAM 12/13/22 12/30/23 release tamsulosin 0.4 mg capsule 2 cap PO DAILY 12/13/22 12/30/23 triamcinolone acetonide 0.1 % 1 appl topical DAILY PRN Rash 12/13/22 12/30/23 topical cream Previous Rx's ?Medication ?Instructions ?Recorded magnesium oxide 400 mg (241.3 mg 400 mg PO BIDPC 30 days #60 tabs 12/17/22 magnesium) tablet cefuroxime axetil 500 mg tablet 500 mg PO BID 6 days #12 tabs 10/22/23 docusate sodium 100 mg capsule 100 mg PO BID #60 caps 10/22/23 (Colace) polyethylene glycol 3350 17 17 g PO DAILY PRN constipation 10/22/23 gram/dose oral powder (Miralax) #510 grams levofloxacin 500 mg tablet 500 mg PO DAILY 5 days #5 tabs 12/30/23 levofloxacin 500 mg tablet 500 mg PO DAILY 5 days #5 tabs 02/10/24 Allergies Allergy/AdvReac Type Severity Reaction Status Date / Time No Known Allergies Allergy Verified 02/11/24 22:55 [No Known Allergies*] Review of Systems Review of Systems: Yes all other systems are reviewed and are negative [facility] Past Medical History Medical History Hypertension Intellectual disability Social History Social History Household Members: Other Housing: Other Housing Other:: Shelter Do you presently have visiting nurse or other home services: Yes Unable to assess alcohol history related to: Unknown Alcohol intake: never Patient Tobacco Use Status: Tobacco use Unknown Advance Directives: Yes Advance Directives Information Provided: No Advance Directives on File: No service: No Current occupational status: disabled Physical Exam ED Vital Signs: Vital Signs - 24 hr 02/11/24 22:52 02/12/24 00:14 Temperature 97.6 F 101.5 F H Pulse Rate 95 85 Respiratory Rate 18 20 Blood Pressure 119/43 L 129/54 L Pulse Oximetry 97 100 Oxygen Delivery Method Nasal Cannula Nasal Cannula Oxygen Flow Rate 5 BMI result Body Mass Index 28.1 Const Other: The patient is a thin, somewhat chronically ill-appearing 79-year-old man who was awake and alert. He was tachypneic but not in distress. He was pleasant and cooperative. HENMT Other: Face is symmetrical. Mucous membranes moist. There were signs of emesis on the patient's chin. Eyes Other: Pupils are round equal, extraocular movements intact, conjunctivae clear Neck Other: No JVD Resp Other: The patient was tachypneic. Some crackles at the bases. Cardio Rate: regular rate Rhythm: regular rhythm Heart sounds: S1 normal heart sound present and S2 normal heart sound present GI Other: The patient had diffuse abdominal tenderness but his abdomen was soft Skin Other: Skin is pale and dry Neuro Other: The patient is awake and alert. He face is symmetrical. He has a paucity of speech but his speech is clear. He moves his extremities symmetrically. He seems diffusely weak. Extrem Other: No calf swelling or tenderness Medications Administered Discontinued Medications Generic Name Dose Route Start Last Admin Trade Name Wanda PRN Reason Stop Dose Admin Sodium Chloride 1,000 mls @ 999 mls/hr 02/11/24 23:00 02/12/24 01:17 Ns IV 02/12/24 00:00 Infused .Q1H1M NINFA Infusion Ceftriaxone Sodium 1 gm/ 50 mls @ 100 mls/hr 02/11/24 23:53 02/12/24 00:32 Sodium Chloride IV 02/12/24 00:22 Infused ONCE ONE Infusion Metronidazole 500 mg in 100 mls @ 100 mls/hr 02/11/24 23:55 02/12/24 00:02 Flagyl IV 02/12/24 00:54 100 mls/hr ONCE ONE Administration Sodium Chloride 1,000 mls @ 999 mls/hr 02/11/24 23:45 02/12/24 01:21 Ns IV 02/12/24 00:45 999 mls/hr .Q1H1M NINFA Administration Sodium Chloride 1,000 mls @ 999 mls/hr 02/12/24 00:30 02/12/24 01:21 Ns IV 02/12/24 01:30 999 mls/hr .Q1H1M NINFA Administration Medical Decision Making Medical Decision Making MDM Narrative: The patient is an 79-year-old male with intellectual disabilities who became short of breath either foot or vomiting. He has a fever. I suspect he has an aspiration pneumonia. He was complaining of some abdominal discomfort. A CT scan shows enteritis. This likely explains his vomiting. The patient's rectal temperature was 101.5 degrees. His lactate was 2.5. Blood cultures obtained and he was given IV antibiotics and IV fluids. His repeat lactate was normal. He will be admitted to the hospitalist service. Lab Data 02/11/24 23:29 02/11/24 23:29 Labs: Lab Results 02/11/24 02/11/24 02/12/24 Range/Units 23:29 23:38 02:01 WBC 2.4 L (4.8-10.8) X10*3/uL RBC 4.48 L (4.60-5.80) X10*6/uL Hgb 13.0 L (14.0-18.0) g/dl Hct 38.9 L (42.0-52.0) % MCV 86.8 (80.0-98.0) fL MCH 29.0 (27.0-33.0) pg MCHC 33.4 (31.0-36.0) g/dl RDW 13.4 (11.0-16.0) % Plt Count 168 D (160-400) X10*3/uL MPV 9.0 L (9.4-12.4) fL Immature Gran % (Auto) 0.0 (0.0-0.4) % Neut % (Auto) 81.0 H (45-73) % Lymph % (Auto) 15.6 L (20-40) % [place] % (Auto) 3.0 (2-11) % Eos % (Auto) 0.0 (0-4) % Baso % (Auto) 0.4 (0-2) % Lymph # (Auto) 0.4 L (1.2-4.9) X10*3/uL [place] # (Auto) 0.1 (0.1-1.2) X10*3/uL Eos # (Auto) 0.0 (0.0-0.4) X10*3/uL Baso # (Auto) 0.0 (0.0-0.2) X10*3/uL Abs Immat Gran (auto) 0.00 (0.00-0.03) X10*3/uL Absolute Neuts (auto) 1.9 L (2.0-8.3) x10*3/uL Absolute Nucleated RBC 0.000 (0.0-0.012) X10*3/uL Nucleated RBC % (auto) 0.0 (0.0-0.2) /100WBC Smear Tech's Comments VERIFIED VBG pH 7.31 L (7.32-7.43) VBG pCO2 46 mmHg VBG pO2 41 mmHg VBG HCO3 24 (22-26) mmol/L VBG O2 Saturation 63.0 % VBG Base Excess -2.2 mmol/L Sodium 141 (135-145) mmol/L Potassium 3.7 (3.3-5.1) mmol/L Chloride 110 H (96-108) mmol/L Carbon Dioxide 20 L (22-29) mmol/L Anion Gap 15 (12-20) BUN 32 H (9-16) mg/dL Creatinine 0.75 (0.5-1.4) mg/dL Estim Creat Clear Calc 82.8 Estimated GFR > 60 Random Glucose 102 (60-115) mg/dL Lactic Acid 2.5 H* (0.5-2.0) mmol/L Lactic Acid F/U @ 2Hr 1.4 (0.5-2.0) mmol/L Calcium 9.2 D (8.4-10.2) mg/dL Magnesium 1.9 (1.6-2.6) mg/dL Total Bilirubin 0.6 (0.0-1.0) mg/dL Direct Bilirubin 0.2 (0.0-0.5) mg/dL AST 17 (5-37) U/L ALT 14 (0-40) U/L Alkaline Phosphatase 65 (39-117) U/L Troponin I High Sens < 2.7 D (<3.5-35.0) ng/L C-Reactive Protein 0.43 (< or = 0.50) mg/dL B-Natriuretic Peptide 21 (<100) pg/mL Total Protein 7.0 (6.5-8.0) g/dL Albumin 3.8 (3.5-5.0) g/dL Lipase 10 (8-78) U/L Ethyl Alcohol < 10 mg/dL Influenza Type A (PCR) NEGATIVE (Negative) Influenza Type B (PCR) NEGATIVE (Negative) RSV RNA Qual (PCR) NEGATIVE (Negative) SARS-CoV-2 RNA (RT-PCR) NEGATIVE (Negative) Discharge Plan Discharge Clinical Impression: Aspiration pneumonia, Vomiting, Enteritis Patient Disposition: Admitted As Inpatient Print Language: Indian
[2024-02-11 23:45] LABS: VBG Base Excess -2.2 mmol/L; VBG HCO3 24 mmol/L (22-26); VBG pCO2 46 mmHg; VBG pH 7.31 (7.32-7.43); VBG pO2 41 mmHg
[2024-02-11 23:46] LABS: Venous Blood Gas Refer to POC result
[2024-02-11 23:57] LABS: Lactic Acid 2.5 mmol/L (0.5-2.0)
[2024-02-12] VITALS (9 sets, daily range): BP systolic 101–129; BP diastolic 27–59; PULSE 71–97; RESP 15–28; TEMP 36.3–38.6; O2SAT 91–100
[2024-02-12 00:02] LABS: Alanine Aminotransferase 14 U/L (0-40); Albumin Level 3.8 g/dL (3.5-5.0); Alkaline Phosphatase 65 U/L (39-117); Anion Gap 15 (12-20); Aspartate Amino Transferase 17 U/L (5-37); Bilirubin Direct 0.2 mg/dL (0.0-0.5); Bilirubin Total 0.6 mg/dL (0.0-1.0); Blood Urea Nitrogen 32 mg/dL (9-16); C Reactive Protein 0.43 mg/dL (< or = 0.50); Calcium 9.2 mg/dL (8.4-10.2); Carbon Dioxide 20 mmol/L (22-29); Chloride 110 mmol/L (96-108); Creatinine Clr Calc Pharmacy 82.8; Estimated Glomerular Filt Rate > 60; Ethanol < 10 mg/dL; Glucose Random 102 mg/dL (60-115); Lipase 10 U/L (8-78); Magnesium 1.9 mg/dL (1.6-2.6); Potassium 3.7 mmol/L (3.3-5.1); Sodium 141 mmol/L (135-145)
[2024-02-12] MEDS: metroNIDAZOLE/NS 500 MG/100 ML PIGGYBACK 100 MG IV (00:02)
[2024-02-12] MEDS: cefTRIAXone sodium 1 GM in 0.9 % Sodium Chloride 50 ML IV (00:02)
[2024-02-12 00:04] LABS: B Type Natriuretic Peptide 21 pg/mL (<100)
[2024-02-12 00:05] LABS: Troponin-I High Sensitivity < 2.7 ng/L (<3.5-35.0)
[2024-02-12 00:15] LABS: Basophils Percent Auto 0.4 % (0-2); Hematocrit 38.9 % (42.0-52.0); Lymphocytes Absolute Auto 0.4 X10*3/uL (1.2-4.9); Lymphocytes Percent Auto 15.6 % (20-40); MANUAL DIFF FLAG SCAN; Mean Corpuscular HGB Conc 33.4 g/dl (31.0-36.0); Mean Corpuscular Volume 86.8 fL (80.0-98.0); Monocytes Absolute Auto 0.1 X10*3/uL (0.1-1.2); Neutrophils Absolute Auto 1.9 x10*3/uL (2.0-8.3); Platelet Count 168 X10*3/uL (160-400); Red Blood Count 4.48 X10*6/uL (4.60-5.80); Red Cell Distribution Width 13.4 % (11.0-16.0); SCAN SMEAR FLAG 1; White Blood Count 2.4 X10*3/uL (4.8-10.8)
[2024-02-12 00:21] LABS: Influenza A PCR NEGATIVE (Negative); Influenza B PCR NEGATIVE (Negative); Resp Syncy Virus RNA Qual PCR NEGATIVE (Negative); SARS COV2 PCR INHOUSE NEGATIVE (Negative); SLIDE REVIEW VERIFIED
[2024-02-12] MEDS: 0.9 % Sodium Chloride 1,000 ML 999 ML IV ×2 (01:21)
[2024-02-12 01:39] LABS: Reflex Lactate? Lactic Acid Added
[2024-02-12 02:17] LABS: ~Lactic Acid-LAB USE ONLY 1.4 mmol/L (0.5-2.0)
--- NOTE | 2024-02-12 02:45 | PM.IMHP ---
History of Present Illness Date of Service: 02/12/24 Chief Complaint: Dyspnea This is a 79-year-old male with history of developmental delay, hypothyroidism, mood disorder, IOL implant, BPH who was brought to the emergency department for evaluation of dyspnea and hypoxia. Unable to obtain history from the patient as he does not communicate at baseline. Only answers with yes or no responses. History obtained with the help of ER provider and chart review. Patient says yes when asked if fevers having abdominal pain. Patient had an episode of vomiting prior to coming in. He was found to be hypoxemic on room air and found to be tachypneic. Unable to obtain review of systems. In the emergency department, imaging with bilateral lower lobe infiltrates and thickened small bowel loops suggestive of enteritis. Meets sepsis criteria and was initiated on empiric IV antibiotics in the ER. Febrile: Temperature 101.5 degrees Review of Systems Review of Systems: Yes Unobtainable due to mental condition [facility] Medical History Hypertension Intellectual disability Pertinent family history: Unable to obtain Social History Household Members: Other Housing: Other Housing Other:: Shelter Do you presently have visiting nurse or other home services: Yes Unable to assess alcohol history related to: Unknown Alcohol intake: never Patient Tobacco Use Status: Tobacco use Unknown Advance Directives: Yes Advance Directives Information Provided: No Advance Directives on File: No service: No Current occupational status: disabled Meds Allergies Allergy/AdvReac Type Severity Reaction Status Date / Time No Known Allergies Allergy Verified 02/11/24 22:55 [No Known Allergies*] Active Medications: Current Medications Piperacillin Sod/Tazobactam (Sod 4.5 gm/ Sodium Chloride) 100 mls @ 200 mls/hr IV Q6H [facility] Home Medications ?Medication ?Instructions ?Recorded ?Confirmed ?Last Taken ?Type acetaminophen 325 mg tablet 2 tab PO Q6H PRN fever or pain 12/13/22 12/30/23 Unknown History citalopram 20 mg tablet 1 tab PO QAM 12/13/22 12/30/23 Unknown History finasteride 5 mg tablet 1 tab PO QAM 12/13/22 12/30/23 Unknown History furosemide 20 mg tablet 10 mg PO QAM 12/13/22 12/30/23 Unknown History multivitamin 1 tab PO QAM 12/13/22 12/30/23 Unknown History omeprazole 20 mg capsule,delayed 2 cap PO QAM 12/13/22 12/30/23 Unknown History release tamsulosin 0.4 mg capsule 2 cap PO DAILY 12/13/22 12/30/23 Unknown History triamcinolone acetonide 0.1 % 1 appl topical DAILY PRN Rash 12/13/22 12/30/23 Unknown History topical cream Physical Exam Vital Signs and Narrative: Vital Signs: Last Vital Signs Temp 101.5 F H 02/12/24 00:14 Pulse 85 02/12/24 00:14 Resp 20 02/12/24 00:14 BP 129/54 L 02/12/24 00:14 Pulse Ox 100 02/12/24 00:14 O2 Del Method Nasal Cannula 02/12/24 00:14 O2 Flow Rate 5 02/12/24 00:14 Oxygen Flow Rate 5 02/11/24 22:52 BMI result Body Mass Index 28.1 Middle-aged male lying in bed on supplemental oxygen Neck supple, no JVD Regular rate and rhythm, S1-S2 heard Bilateral crackles appreciated Abdomen soft nontender, no guarding, no rigidity Patient is awake, alert and oriented to self, place, time and person ; no focal motor deficit Psych: Normal mood No pedal edema Results Labs 02/11/24 23:29 02/11/24 23:29 Labs: Laboratory Results - last 24 hr 02/11/24 02/11/24 02/12/24 23:29 23:38 02:01 MCV 86.8 MCH 29.0 MCHC 33.4 RDW 13.4 Plt Count 168 D MPV 9.0 L Immature Gran % (Auto) 0.0 Neut % (Auto) 81.0 H Lymph % (Auto) 15.6 L [place] % (Auto) 3.0 Eos % (Auto) 0.0 Baso % (Auto) 0.4 Lymph # (Auto) 0.4 L [place] # (Auto) 0.1 Eos # (Auto) 0.0 Baso # (Auto) 0.0 Abs Immat Gran (auto) 0.00 Absolute Neuts (auto) 1.9 L Absolute Nucleated RBC 0.000 Nucleated RBC % (auto) 0.0 Smear Tech's Comments VERIFIED VBG pH 7.31 L VBG pCO2 46 VBG pO2 41 VBG HCO3 24 VBG O2 Saturation 63.0 VBG Base Excess -2.2 Anion Gap 15 Estim Creat Clear Calc 82.8 Estimated GFR > 60 Random Glucose 102 Lactic Acid 2.5 H* Lactic Acid F/U @ 2Hr 1.4 Calcium 9.2 D Magnesium 1.9 Total Bilirubin 0.6 Direct Bilirubin 0.2 AST 17 ALT 14 Alkaline Phosphatase 65 Troponin I High Sens < 2.7 D C-Reactive Protein 0.43 B-Natriuretic Peptide 21 Total Protein 7.0 Albumin 3.8 Lipase 10 Ethyl Alcohol < 10 Influenza Type A (PCR) NEGATIVE Influenza Type B (PCR) NEGATIVE RSV RNA Qual (PCR) NEGATIVE SARS-CoV-2 RNA (RT-PCR) NEGATIVE Imaging Radiologist's Impressions: Impressions Chest X-Ray 02/11/24 22:47 IMPRESSION: Multifocal bilateral airspace opacities. No change since prior chest x-ray 2022. Abdomen/Pelvis CT 02/12/24 00:50 IMPRESSION: Mildly thickened small bowel loops throughout the abdomen suggestive of enteritis. Enlarged prostate gland. Urinary bladder wall thickening may be related to chronic outlet obstruction. Bilateral lower lobe infiltrates, left greater than right. Recurrent pneumonia superimposed on chronic change on the left is a consideration. Fleischner guidelines were followed. Assessment and Plan (1) Sepsis: Status: Resolved (2) Enteritis: Status: Acute (3) Aspiration pneumonia: Status: Acute (4) Hypoxia: Status: Acute Plan This is a 79-year-old male with history of developmental delay, hypothyroidism, mood disorder, IOL implant, BPH who was brought to the emergency department for evaluation of dyspnea and hypoxia. #. Acute hypoxemic respiratory failure due to aspiration pneumonia: Will admit patient with supplemental oxygen. Initiated empiric IV antibiotics. Will keep patient NPO and speech eval #. Sepsis due to pneumonia + enteritis: On IV antibiotics. Resuscitated with IV crystalloids. Lactic acid and blood culture obtained #. Lactic acidosis due to sepsis #. Mood disorder: Continue home mood stabilizers once able to take p.o. #. BPH: On finasteride and Flomax Med rec pending DVT prophylaxis: Lovenox Full code Admit as inpatient and will require two night minimum hospital stay for supplemental oxygen, IV antibiotics (as above), which is not possible in a lesser acute setting. Quality Stroke Does the patient have a stroke diagnosis?: No VTE Prior VTE?: No VTE Risk Level:: Medical - moderate - high VTE Device Contraindication: Treatment Not Indicated VTE Drug Contraindication: N/A - Med Ordered
[2024-02-12] MEDS: Enoxaparin Sodium 40 MG/0.4 ML SYRINGE SUBCUT (04:02)
[2024-02-12] MEDS: Piperacillin Sodium/Tazobactam 4.5 GM in 0.9 % Sodium Chloride 100 ML IV ×4 (04:02→21:02)
[2024-02-12] MEDS: Acetaminophen Supp 650 MG SUPP.RECT PR (04:08)
[2024-02-12 04:24] LABS: Appearance Urine Cloudy; Color Urine Yellow; Glucose Urine UA Negative (Negative); Leukocyte Esterase Urine Small (1+) (Negative); Nitrite Urine Negative (Negative); PH >= 9.0 (5.0-9.0); Specific Gravity - Urine 1.025 (1.005-1.025); UMIC TRIGGER UACC YES; Urine Blood Small (1+) (Negative); Urine Ketones 15 mg/dL (Negative); Urine Protein 100 (2+) mg/dL (Neg-Trace)
[2024-02-12 04:36] LABS: Bacteria Urine 4+ (None Seen); Hyaline Casts Urine 0-2 /LPF (0-2); Other Crystals Urine Present; RBC Urine >20 /HPF (0-2); UACC Culture Trigger YES; WBC Urine 0-5 /HPF (0-5)
[2024-02-12 05:13] LABS: Hematocrit 34.2 % (42.0-52.0); Hemoglobin 11.6 g/dl (14.0-18.0); Lymphocytes Absolute Auto 0.2 X10*3/uL (1.2-4.9); Lymphocytes Percent Auto 8.8 % (20-40); MANUAL DIFF FLAG SCAN; Mean Corpuscular HGB Conc 33.9 g/dl (31.0-36.0); Mean Corpuscular Hemoglobin 29.2 pg (27.0-33.0); Mean Corpuscular Volume 86.1 fL (80.0-98.0); Mean Platelet Volume 9.2 fL (9.4-12.4); Monocytes Absolute Auto 0.2 X10*3/uL (0.1-1.2); Monocytes Percent Auto 6.3 % (2-11); Neutrophils Percent Auto 84.9 % (45-73); Platelet Count 135 X10*3/uL (160-400); Red Blood Count 3.97 X10*6/uL (4.60-5.80); Red Cell Distribution Width 13.4 % (11.0-16.0); SCAN SMEAR FLAG 1
[2024-02-12 05:14] LABS: White Blood Count 2.4 X10*3/uL (4.8-10.8)
[2024-02-12 05:30] LABS: Anion Gap 10 (12-20); Blood Urea Nitrogen 30 mg/dL (9-16); Calcium 8.2 mg/dL (8.4-10.2); Carbon Dioxide 19 mmol/L (22-29); Chloride 115 mmol/L (96-108); Creatinine Clr Calc Pharmacy 80.7; Estimated Glomerular Filt Rate > 60; Glucose Random 110 mg/dL (60-115); Potassium 3.3 mmol/L (3.3-5.1); Sodium 141 mmol/L (135-145)
--- NOTE | 2024-02-12 06:28 | PC.NURSE ---
Pt alert, not oriented. Smiles when name is called in response. Calm and cooperative. Had an uneventful night with very little sleep time. Incontinent of urine. Pericare provided throughout the night. Condom cath placed to obtain a urine sample. Pt self removed the condom cath. Caregiver, Mary Grace, called for an update. Update provided as pt is admitted and pending bed assignment. Monitoring is ongoing.
[2024-02-12] MEDS: 0.9 % Sodium Chloride Flush 3 ML SYRINGE IVFLUSH ×3 (09:10→20:51)
--- NOTE | 2024-02-12 09:20 | PC.NURSE ---
Addendum entered by Myra Gregorio 02/12/24 09:57: PT IS NOT NON-VERBAL, PT5 DOES SPEAKS IN A VERY SOFT VOICE. Original Note: PT IS A/O, NON-VERBAL. PT WILL NOD HIS HEAD TO ANSWER AND POINT IF NEEDED. SKIN P/W/D. NO EDEMA NOTED. PT TO HAVE BEDSIDE SWALLOW BY THIS RN. PT AWARE OF PLAN OF CARE. WILL CONTINUE TO SWALLOW.
--- NOTE | 2024-02-12 09:23 | PHA.MEDREC ---
Pharmacy Consult ? Medication Reconciliation Pharmacy has completed the medication reconciliation. Patient with list by [employer]. PCP Mary Grace ([phone])
--- NOTE | 2024-02-12 09:26 | PC.NURSE ---
PT SEEN BY DR JACOBS. PT AWARE OF PLAN OF CARE.
--- NOTE | 2024-02-12 09:52 | MHC.EDTECH ---
Patient's wet linens changed. Linens now clean and dry. Patient washed up and barrier cream applied to buttocks and coccyx areas. Patient repositioned to right [facility]. [place] catheter placed. Patient tolerated well. Call sanchez placed within reach.
--- NOTE | 2024-02-12 09:58 | PC.NURSE ---
BERTRAND D ENTURE/MOUTH CARE GIVEN
--- NOTE | 2024-02-12 11:54 | PM.EVENT ---
Event Note Date of Service: 02/12/24 Event Note: 79-year-old male with history of developmental delay, hypothyroidism, mood disorder, IOL implant, BPH who was brought to the emergency department for evaluation of dyspnea and hypoxia, spoke with patient healthcare proxy Shyanne Learymaren according to her patient was on Levaquin for a UTI, he developed diarrhea and yesterday he was noted to be vomiting, gagging coughing and was short of breath for EMS was called and patient was brought in to [facility] chest x-ray showed multifocal bilateral airspace opacities no change since prior chest x-ray of 2022, CT abdomen and pelvis showed mildly thickened small bowel loops suggestive of enteritis, and large prostate gland with thick wall urinary bladder, bilateral lower lobe infiltrate left greater than right, likely recurrent pneumonia superimposed on chronic changes on the left, in emergency room patient was noted to be febrile with a temp of 101.5 degrees, tachypneic, low WBC count of 2.4, stable blood pressure patient admitted to hospital with a diagnosis of sepsis due to acute hypoxic respiratory failure due to aspiration pneumonia, UTI. On examination today patient awake alert noncommunicative, smiles Vitals stable fever resolved Abdomen soft. #. Acute hypoxemic respiratory failure due to aspiration pneumonia: Continue IV Zosyn started on 02/11, placed on pureed and nectar thick liquid Spoke with healthcare proxy patient takes regular diet thin liquids will gradually advance diet to baseline. #. Sepsis due to asp. pneumonia + enteritis + uti: Sepsis due to fever, tachypnea and lactic acidosis, Continue IV antibiotics. Follow blood cultures and urine cultures. #. Acute Lactic acidosis due to sepsis resolved,s/p ivf, hold Lasix. #. Mood disorder: Continue home mood stabilizers #. BPH: Continue finasteride and Flomax Med rec done DVT prophylaxis: Lovenox Full code Admit as inpatient and will require continued inpatient hospital stay for supplemental oxygen, IV antibiotics (as above), which is not possible in a lesser acute setting. Time Spent With Patient Time: Total time managing care of this patient today ____ minutes.
--- NOTE | 2024-02-12 13:22 | MHC.EDTECH ---
Patient states I'm wet . Patient's wet linen changed. Patient linen now dry and clean. Patient repositioned to left side. Patient states he is comfortable. Patient resting, respirations even and unlabored.
[2024-02-12] MEDS: ondansetron HCL 4 MG/2 ML VIAL IVPUSH (14:16)
[2024-02-12] MEDS: Magnesium Oxide 400 MG TABLET PO (17:50)
[2024-02-12] MEDS: Docusate Sodium 100 MG CAPSULE PO (20:47)
[2024-02-12] MEDS: Tamsulosin HCL 0.4 MG CAPSULE PO (20:47)
[2024-02-13 03:34] VITALS: BP 133/60; PULSE 95; RESP 18; TEMP 37.1; O2SAT 95
[2024-02-13] MEDS: guaiFENesin DM 200/20/10 ML 10 ML SYRUP PO ×3 (03:45→20:19)
[2024-02-13] MEDS: Piperacillin Sodium/Tazobactam 4.5 GM in 0.9 % Sodium Chloride 100 ML IV ×4 (03:45→20:20)
[2024-02-13] MEDS: Omeprazole 40 MG CAPSULE.DR PO (05:14)
[2024-02-13 07:12] VITALS: BP 130/60; PULSE 93; RESP 16; TEMP 36.2; O2SAT 94
[2024-02-13] MEDS: 0.9 % Sodium Chloride Flush 3 ML SYRINGE IVFLUSH ×3 (09:07→20:20)
[2024-02-13] MEDS: Tamsulosin HCL 0.4 MG CAPSULE PO ×2 (09:08→20:19)
[2024-02-13] MEDS: Multivitamin TABLET 1 TAB PO (09:08)
[2024-02-13] MEDS: Docusate Sodium 100 MG CAPSULE PO ×2 (09:08→20:27)
[2024-02-13] MEDS: Escitalopram Oxalate 10 MG TABLET PO (09:09)
[2024-02-13] MEDS: Magnesium Oxide 400 MG TABLET PO (09:09)
[2024-02-13] MEDS: Enoxaparin Sodium 40 MG/0.4 ML SYRINGE SUBCUT (09:09)
[2024-02-13] MEDS: Finasteride 5 MG TABLET PO (09:10)
--- NOTE | 2024-02-13 12:30 | P.PNIM_ITS ---
Subjective Subjective Date of Service: 02/13/24 Interval History: Admitted for acute hypoxic respiratory failure likely due to aspiration pneumonia, unable to obtain detail history due to developmental delay, no acute events overnight, no fevers, vitals stable tolerating diet Able to answer few questions yes or no, complaining of abdominal pain and coughing, follow commands. Review of Systems On able to obtain due to mental status. Physical Exam 2 Vital Signs: Vital Signs: Last Vital Signs Temp 97.2 F 02/13/24 07:12 Pulse 93 02/13/24 07:12 Resp 16 02/13/24 07:12 BP 130/60 02/13/24 07:12 Pulse Ox 94 02/13/24 07:12 O2 Del Method Room Air 02/13/24 07:12 O2 Flow Rate 5 02/12/24 00:14 Oxygen Flow Rate 5 02/11/24 22:52 BMI result Body Mass Index 28.1 Const: Other: General awake alert, resting comfortably in no acute distress. Neck supple no JVD. CVS regular rate rhythm, Respiratory lungs coarse breath sounds, no respiratory distress, no wheeze, no rhonchi. Gastrointestinal abdomen soft, mild mid abd. tenderness, bowel sounds audible, no guarding , no rigidity. Extremities no edema. Neuro moving all 4 extremity Skin no rash Objective Data Active Medications Acetaminophen (Acetaminophen 325 Mg Tablet) 650 mg PO Q6H PRN PRN Reason: Pain, Mild (Pain Scale 1-3) Acetaminophen (Acetaminophen Supp 650 Mg Supp.Rect) 650 mg VT Q6H PRN PRN Reason: Pain, Mild (Pain Scale 1-3) Last Admin: 02/12/24 04:08 Dose: 650 mg Documented By: JOSIAS Docusate Sodium (Docusate Sodium 100 Mg Capsule) 100 mg PO BID [facility] Last Admin: 02/13/24 09:08 Dose: 100 mg Documented By: ROSALIA Enoxaparin Sodium (Enoxaparin Sodium 40 Mg/0.4 Ml Syringe) 40 mg SUBCUT DAILY [facility] Last Admin: 02/13/24 09:09 Dose: 40 mg Documented By: ROSALIA Escitalopram Oxalate (Escitalopram Oxalate 10 Mg Tablet) 10 mg PO DAILY [facility] Last Admin: 02/13/24 09:09 Dose: 10 mg Documented By: ROSALIA Finasteride (Finasteride 5 Mg Tablet) 5 mg PO DAILY [facility] Last Admin: 02/13/24 09:10 Dose: 5 mg Documented By: ROSALIA Guaifenesin/Dextromethorphan (Guaifenesin Dm 200/20/10 Ml 10 Ml Syrup) 10 ml PO Q6H PRN PRN Reason: cough Last Admin: 02/13/24 03:45 Dose: 10 ml Documented By: ELIZABETH Piperacillin Sod/Tazobactam (Sod 4.5 gm/ Sodium Chloride) 100 mls @ 200 mls/hr IV Q6H [facility] Last Infusion: 02/13/24 10:07 Dose: Infused Documented By: ROSALIA Magnesium Oxide (Magnesium Oxide 400 Mg Tablet) 400 mg PO BIDPC [facility] Last Admin: 02/13/24 09:09 Dose: 400 mg Documented By: ROSALIA Melatonin (Melatonin 3 Mg Tablet) 6 mg PO BEDTIME PRN PRN Reason: Insomnia Multivitamins/Vitamin C (Multivitamin Tablet) 1 tab PO DAILY [facility] Last Admin: 02/13/24 09:08 Dose: 1 tab Documented By: ROSALIA Omeprazole (Omeprazole 40 Mg Capsule.) 40 mg PO DAILY@0630 [facility] Last Admin: 02/13/24 05:14 Dose: 40 mg Documented By: ELIZABETH Ondansetron HCl (Ondansetron Hcl 4 Mg/2 Ml Vial) 4 mg IVPUSH Q8H PRN PRN Reason: Nausea and Vomiting Last Admin: 02/12/24 14:16 Dose: 4 mg Documented By: SONJA Sodium Chloride (0.9 % Sodium Chloride Flush 3 Ml Syringe) 3 ml IVFLUSH QSHIFT [facility] Last Admin: 02/13/24 09:07 Dose: 3 ml Documented By: ROSALIA Tamsulosin HCl (Tamsulosin Hcl 0.4 Mg Capsule) 0.4 mg PO BID [facility] Last Admin: 02/13/24 09:08 Dose: 0.4 mg Documented By: ROSALIA Labs 02/12/24 05:06 02/12/24 05:06 Microbiology Microbiology Results: Microbiology 02/12/24 Unknown Urine Culture - Final Urine clean catch - Urine frank top 02/11/24 23:29 Blood Culture - Preliminary Blood - Venous No growth after 24 hours. 02/11/24 23:29 Blood Culture - Preliminary Blood - Venous No growth after 24 hours. Assessment and Plan (1) Hypoxia: Status: Acute (2) Enteritis: Status: Acute (3) Aspiration pneumonia: Status: Acute Plan 79-year-old male with history of developmental delay, hypothyroidism, mood disorder, IOL implant, BPH who was brought to the emergency department for evaluation of dyspnea and hypoxia, spoke with patient healthcare proxy Shyanne Doshi according to her patient was on Levaquin for a UTI, he developed diarrhea and yesterday he was noted to be vomiting, gagging coughing and was short of breath for EMS was called and patient was brought in to [facility] chest x-ray showed multifocal bilateral airspace opacities no change since prior chest x-ray of 2022, CT abdomen and pelvis showed mildly thickened small bowel loops suggestive of enteritis, and large prostate gland with thick wall urinary bladder, bilateral lower lobe infiltrate left greater than right, likely recurrent pneumonia superimposed on chronic changes on the left, in emergency room patient was noted to be febrile with a temp of 101.5 degrees, tachypneic, low WBC count of 2.4, stable blood pressure patient admitted to hospital with a diagnosis of sepsis due to acute hypoxic respiratory failure due to aspiration pneumonia, UTI. #. Acute hypoxemic respiratory failure due to aspiration pneumonia: Hypoxia resolved, no recurrent fevers, persistent cough and shortness of breath on IV Zosyn started on 02/11, Seen by speech therapy they recommend ground solids and nectar thick liquids no straws pills crushed with one-to-one assist Spoke with healthcare proxy patient takes regular diet/ thin liquids at baseline. #. Sepsis due to asp. pneumonia + enteritis + uti: Sepsis resolved, no abdominal pain tolerating diet, Continue IV antibiotics. blood cultures x2 negative times 24 hours and urine cultures grew mixed bacterial yareli greater than 100,000. #. Acute Lactic acidosis due to sepsis resolved,s/p ivf, hold Lasix. #. Mood disorder: Continue home mood stabilizers #. BPH: Continue finasteride and Flomax DVT prophylaxis: Lovenox Full code Continue inpatient hospital stay for treatment of sepsis with IV antibiotics (as above), which is not possible in a lesser acute setting. Quality Stroke Does the patient have a stroke diagnosis?: No VTE Prior VTE?: No VTE Risk Level:: Medical - moderate - high VTE Device Contraindication: Treatment Not Indicated VTE Drug Contraindication: N/A - Med Ordered
--- NOTE | 2024-02-13 13:18 | MHC.SL.SWA ---
Speech Pathologist Impression: Risk of aspiration, oropharyngeal dysphagia Risk of Aspiration Due to: History of Pneumonia Reduced Cognition Dysphasia Diet Status: START on NDD2/NTL Liquid Consistency and Strategies for Safe Swallow: Liquid Intake Recommendation: [place] Thick Liquid Intake Strategies: Small Sips No Straws Solid Food Consistency: Dietary Recommendations: Grnd/Mech Altered (NDD2) Additional Modifications to Solid Foods: Patient seen by AIR QUALITY TECHNICIAN this morning for bedside swallow. Note slowed oral phase, mild to moderate delay initiating swallow, audible swallow. Gurgling when drinking by straw and coughing on thin liquid. Recommend upgrade to GROUND/MECH ALTERED solids (NDD2) and continue on NECTAR THICK liquids (no straws), CRUSHED pills in PUREE. Patient will need 1:1 assist feeding and strict aspiration precautions. Oral Medication Intake: Crushed with Puree Please contact the pharmacy regarding appropriate crushable or liquid drug formulations that are available whenever modified delivery is recommended. Compensatory Strategies and Precautions to be Taken for Safe Swallow: Sitting Upright (90 deg) No Straw Small Bites and Sips Rate of Ingestion Change Oral Check Avoid Specific Foods Supervision While Eating and Drinking for Safe Swallow: Total Assistance (1:1) Foods to Avoid: Mixed textures Swallowing Recommended Treatments: Compens. Strategy Educat. Recommendation for Speech: Inpatient Speech Therapy Comment: AIR QUALITY TECHNICIAN will continue to follow Frequency/Duration: M-F PRN Date Range for Service Req: Timeline to reassess: Anesthesiology Medical Doctor Clinican/Clinical Fellow: No Supervisory Statement: I have reviewed and agree with the student/clinical fellow's documentation: N/A Speech Language Pathologist: Toya Adames M.A., [facility]-AIR QUALITY TECHNICIAN
--- NOTE | 2024-02-13 14:22 | MHC.CM.PN ---
CM SPOKE TO PTS ADULT FOSTER CARE PROVIDER, SYL [phone] SHE CONFIRMS THE PT LIVES WITH HER AND SHE IS THE CAREGIVER SHE SAYS HE IS ACTIVE WITH [facility] AND [facility] HE HAS A CANE FOR DME SHE SAYS THEY HAVE A COPY OF HIS HCP, COPY REQUESTED PCP: [facility] DELIVERED DCP: HOME, RESUME [facility], [facility] AND [facility] SERVICES [facility] TO TRANSPORT WALTER ALSO LEFT A MESSAGE FOR PTS HCP, LINDSAY CASTORENA [phone] AND LEFT A VM WITH PTS MEDICARE RIGHTS
[2024-02-13 15:30] VITALS: BP 142/65; PULSE 104; RESP 18; TEMP 37.2; O2SAT 95
[2024-02-13] MEDS: ondansetron HCL 4 MG/2 ML VIAL IVPUSH (15:58)
[2024-02-13 19:35] VITALS: BP 135/62; PULSE 86; RESP 16; TEMP 36.6; O2SAT 93
[2024-02-14 04:00] VITALS: BP 130/59; PULSE 78; RESP 14; TEMP 36.9; O2SAT 93
[2024-02-14] MEDS: Piperacillin Sodium/Tazobactam 4.5 GM in 0.9 % Sodium Chloride 100 ML IV ×4 (04:11→22:45)
[2024-02-14] MEDS: Omeprazole 40 MG CAPSULE.DR PO (05:52)
[2024-02-14 07:34] VITALS: BP 132/63; PULSE 77; RESP 18; TEMP 36.1; O2SAT 95
[2024-02-14] MEDS: guaiFENesin DM 200/20/10 ML 10 ML SYRUP PO ×4 (08:58→22:45)
[2024-02-14] MEDS: Magnesium Oxide 400 MG TABLET PO ×2 (08:58→16:49)
[2024-02-14] MEDS: Escitalopram Oxalate 10 MG TABLET PO (08:59)
[2024-02-14] MEDS: Tamsulosin HCL 0.4 MG CAPSULE PO ×2 (08:59→22:45)
[2024-02-14] MEDS: Finasteride 5 MG TABLET PO (08:59)
[2024-02-14] MEDS: Docusate Sodium 100 MG CAPSULE PO ×2 (08:59→22:45)
[2024-02-14] MEDS: Multivitamin TABLET 1 TAB PO (08:59)
[2024-02-14] MEDS: Enoxaparin Sodium 40 MG/0.4 ML SYRINGE SUBCUT (09:08)
[2024-02-14] MEDS: 0.9 % Sodium Chloride Flush 3 ML SYRINGE IVFLUSH ×3 (09:08→22:46)
--- NOTE | 2024-02-14 11:27 | P.CDIM_ITS ---
PROVIDER RESPONSE TEXT: To clarify, the appropriate diagnosis supported by the clinical indicators: Enteritis: infectious QUERY TEXT: PHYSICIAN'S DOCUMENTATION REQUEST Date of Query: 02/14/2024 10:22 AM EDT Patient Name: Brad Arndt Admit Date: 02/12/2024 Dear Sun Stubbs, A review of the medical record indicates additional documentation may be needed. Please review below and update the documentation accordingly. Clinical Indicators: Progress notes - Plan: CT abdomen and pelvis showed mildly thickened small bowel loops suggestive of enteritis. Sepsis due to aspiration pneumonia + enteritis + UTI. Sepsis resolved, no abdominal pain, tolerating diet. Possible specifics to the noted diagnosis of Enteritis: Enteritis infectious, bacterial, megacolon, toxic, viral etc. Other Other (explain) Clinically unable to determine (explain) Thank you, Heena Mata, CCS, CDIS Use of terms such as suspected, likely, concern for, or probable (associated with a specific diagnosi s that is being evaluated, monitored, or treated as if it exists) are acceptable and can be coded in the inpatient se tting, when documented at the time of discharge. Please use your independent medical judgment in providing your response. THIS QUERY IS PART OF THE PERMANENT MEDICAL RECORD
--- NOTE | 2024-02-14 12:39 | MHC.CM.PN ---
WALTER spoke with LANCE Sierra w/ [facility] ([phone]. Per Mariela, will need new order form signed by prior to dc. Mariela will fax to CM office. Per Mariela, patient is legally competent to make own decisions. She will fax competency documentation and a copy of HCP. CM will continue to follow.
--- NOTE | 2024-02-14 14:29 | P.PNIM_ITS ---
Subjective Subjective Date of Service: 02/14/24 Interval History: Being followed for aspiration pneumonia/abdominal pain. Patient denies abdominal pain, noted to be coughing mostly dry, unable to obtain more detailed history due to developmental delay. Foster care provider at bedside feels patient is not at his baseline. Review of Systems All other system reviewed and negative Physical Exam 2 Vital Signs: Vital Signs: Last Vital Signs Temp 97.0 F 02/14/24 07:34 Pulse 77 02/14/24 07:34 Resp 18 02/14/24 07:34 BP 132/63 02/14/24 07:34 Pulse Ox 95 02/14/24 07:34 O2 Del Method Room Air 02/14/24 07:34 O2 Flow Rate 5 02/12/24 00:14 Oxygen Flow Rate 5 02/11/24 22:52 BMI result Body Mass Index 28.1 Const: Other: General awake alert, resting comfortably in no acute distress, intermittently coughing. Neck supple no JVD. CVS regular rate rhythm, Respiratory lungs clear, no respiratory distress, no wheeze, no rhonchi. Gastrointestinal abdomen soft, tenderness resolved, bowel sounds audible, no guarding , no rigidity. Extremities no edema. Neuro moving all 4 extremity Skin no rash Objective Data Active Medications Acetaminophen (Acetaminophen 325 Mg Tablet) 650 mg PO Q6H PRN PRN Reason: Pain, Mild (Pain Scale 1-3) Acetaminophen (Acetaminophen Supp 650 Mg Supp.Rect) 650 mg LA Q6H PRN PRN Reason: Pain, Mild (Pain Scale 1-3) Last Admin: 02/12/24 04:08 Dose: 650 mg Documented By: JOSIAS Docusate Sodium (Docusate Sodium 100 Mg Capsule) 100 mg PO BID [facility] Last Admin: 02/14/24 08:59 Dose: 100 mg Documented By: PHILL Enoxaparin Sodium (Enoxaparin Sodium 40 Mg/0.4 Ml Syringe) 40 mg SUBCUT DAILY [facility] Last Admin: 02/14/24 09:08 Dose: 40 mg Documented By: PHILL Escitalopram Oxalate (Escitalopram Oxalate 10 Mg Tablet) 10 mg PO DAILY [facility] Last Admin: 02/14/24 08:59 Dose: 10 mg Documented By: PHILL Finasteride (Finasteride 5 Mg Tablet) 5 mg PO DAILY [facility] Last Admin: 02/14/24 08:59 Dose: 5 mg Documented By: PHILL Guaifenesin/Dextromethorphan (Guaifenesin Dm 200/20/10 Ml 10 Ml Syrup) 10 ml PO QID [facility] Last Admin: 02/14/24 13:30 Dose: 10 ml Documented By: PHILL Piperacillin Sod/Tazobactam (Sod 4.5 gm/ Sodium Chloride) 100 mls @ 200 mls/hr IV Q6H [facility] Last Infusion: 02/14/24 09:55 Dose: Infused Documented By: PHILL Magnesium Oxide (Magnesium Oxide 400 Mg Tablet) 400 mg PO BIDPC [facility] Last Admin: 02/14/24 08:58 Dose: 400 mg Documented By: PHILL Melatonin (Melatonin 3 Mg Tablet) 6 mg PO BEDTIME PRN PRN Reason: Insomnia Multivitamins/Vitamin C (Multivitamin Tablet) 1 tab PO DAILY [facility] Last Admin: 02/14/24 08:59 Dose: 1 tab Documented By: PHILL Omeprazole (Omeprazole 40 Mg Capsule.) 40 mg PO DAILY@0630 [facility] Last Admin: 02/14/24 05:52 Dose: 40 mg Documented By: PRANAY Ondansetron HCl (Ondansetron Hcl 4 Mg/2 Ml Vial) 4 mg IVPUSH Q8H PRN PRN Reason: Nausea and Vomiting Last Admin: 02/13/24 15:58 Dose: 4 mg Documented By: ROSALIA Sodium Chloride (0.9 % Sodium Chloride Flush 3 Ml Syringe) 3 ml IVFLUSH QSHIFT [facility] Last Admin: 02/14/24 09:08 Dose: 3 ml Documented By: PHILL Tamsulosin HCl (Tamsulosin Hcl 0.4 Mg Capsule) 0.4 mg PO BID [facility] Last Admin: 02/14/24 08:59 Dose: 0.4 mg Documented By: PHILL Labs 02/12/24 05:06 02/12/24 05:06 Labs: Laboratory Results - last 24 hr 02/11/24 23:29 Smear Path Review SEE NOTE Microbiology Microbiology Results: Microbiology 02/11/24 23:29 Blood Culture - Preliminary Blood - Venous No growth after 48 hours. 02/11/24 23:29 Blood Culture - Preliminary Blood - Venous No growth after 48 hours. Assessment and Plan (1) Hypoxia: Status: Acute (2) Enteritis: Status: Acute (3) Aspiration pneumonia: Status: Acute Plan 79-year-old male with history of developmental delay, hypothyroidism, mood disorder, IOL implant, BPH who was brought to the emergency department for evaluation of dyspnea and hypoxia, spoke with patient healthcare proxy Shyanne Doshi according to her patient was on Levaquin for a UTI, he developed diarrhea and yesterday he was noted to be vomiting, gagging coughing and was short of breath for EMS was called and patient was brought in to [facility] chest x-ray showed multifocal bilateral airspace opacities no change since prior chest x-ray of 2022, CT abdomen and pelvis showed mildly thickened small bowel loops suggestive of enteritis, and large prostate gland with thick wall urinary bladder, bilateral lower lobe infiltrate left greater than right, likely recurrent pneumonia superimposed on chronic changes on the left, in emergency room patient was noted to be febrile with a temp of 101.5 degrees, tachypneic, low WBC count of 2.4, stable blood pressure patient admitted to hospital with a diagnosis of sepsis due to acute hypoxic respiratory failure due to aspiration pneumonia, UTI. #. Acute hypoxemic respiratory failure due to aspiration pneumonia: Hypoxia resolved, no recurrent fevers, persistent cough and shortness of breath on IV Zosyn started on 02/11, Seen by speech therapy they recommend ground solids and nectar thick liquids, no straws pills crushed with one-to-one assist , continue current diet and reassess with speech therapy Spoke with healthcare proxy patient takes regular diet/ thin liquids at baseline. #. Sepsis due to asp. pneumonia + enteritis : Sepsis resolved, no abdominal pain tolerating diet, Continue IV antibiotics. blood cultures x2 negative and urine cultures grew mixed bacterial yareli greater than 100,000. Continue IV antibiotic for 1 more day follow CBC and electrolytes #. Acute Lactic acidosis due to sepsis resolved,s/p ivf, hold Lasix. #. Mood disorder: Continue home mood stabilizers #. BPH: Continue finasteride and Flomax DVT prophylaxis: Lovenox Full code Continue inpatient hospital stay for treatment of sepsis with IV antibiotics (as above), which is not possible in a lesser acute setting. Quality Stroke Does the patient have a stroke diagnosis?: No VTE Prior VTE?: No VTE Risk Level:: Medical - moderate - high VTE Device Contraindication: Treatment Not Indicated VTE Drug Contraindication: N/A - Med Ordered
[2024-02-14 15:17] VITALS: BP 136/63; PULSE 99; RESP 16; TEMP 37.1; O2SAT 94
[2024-02-14] MEDS: Albuterol/Iprat 2.5/0.5MG 3 ML AMPUL.NEB INHALE (17:13)
[2024-02-14 17:18] VITALS: PULSE 93; RESP 20; O2SAT 98
[2024-02-14 19:54] VITALS: BP 122/58; PULSE 97; RESP 16; TEMP 36.8; O2SAT 94
[2024-02-15 03:06] VITALS: BP 132/62; PULSE 73; RESP 16; TEMP 36.1; O2SAT 92
[2024-02-15] MEDS: Piperacillin Sodium/Tazobactam 4.5 GM in 0.9 % Sodium Chloride 100 ML IV ×2 (04:28→10:16)
[2024-02-15] MEDS: Omeprazole 40 MG CAPSULE.DR PO (05:24)
[2024-02-15 06:35] LABS: Anion Gap 11 (12-20); Blood Urea Nitrogen 14 mg/dL (9-16); Calcium 8.4 mg/dL (8.4-10.2); Carbon Dioxide 21 mmol/L (22-29); Chloride 105 mmol/L (96-108); Creatinine Clr Calc Pharmacy 88.8; Estimated Glomerular Filt Rate > 60; Glucose Random 101 mg/dL (60-115); Potassium 3.1 mmol/L (3.3-5.1); Sodium 134 mmol/L (135-145)
[2024-02-15 07:11] VITALS: BP 118/57; PULSE 74; RESP 18; TEMP 36.9; O2SAT 96
[2024-02-15] MEDS: Tamsulosin HCL 0.4 MG CAPSULE PO (08:59)
[2024-02-15] MEDS: Docusate Sodium 100 MG CAPSULE PO (08:59)
[2024-02-15] MEDS: Multivitamin TABLET 1 TAB PO (08:59)
[2024-02-15] MEDS: Finasteride 5 MG TABLET PO (08:59)
[2024-02-15] MEDS: Magnesium Oxide 400 MG TABLET PO (08:59)
[2024-02-15] MEDS: Escitalopram Oxalate 10 MG TABLET PO (08:59)
[2024-02-15] MEDS: guaiFENesin DM 200/20/10 ML 10 ML SYRUP PO ×2 (08:59→11:57)
[2024-02-15] MEDS: Enoxaparin Sodium 40 MG/0.4 ML SYRINGE SUBCUT (09:00)
[2024-02-15] MEDS: 0.9 % Sodium Chloride Flush 3 ML SYRINGE IVFLUSH (09:00)
[2024-02-15 09:02] LABS: Hematocrit 31.6 % (42.0-52.0); Hemoglobin 11.1 g/dl (14.0-18.0); Mean Corpuscular HGB Conc 35.1 g/dl (31.0-36.0); Mean Corpuscular Volume 85.4 fL (80.0-98.0); Mean Platelet Volume 10.3 fL (9.4-12.4); Platelet Count 149 X10*3/uL (160-400); Red Cell Distribution Width 13.4 % (11.0-16.0); White Blood Count 7.8 X10*3/uL (4.8-10.8)
--- NOTE | 2024-02-15 11:56 | P.DS_ITS ---
DS: Providers Provider Date of Service: 02/15/24 Date of admission: 02/12/24 02:44 Primary care physician: Usha Blancas MD DS: Diagnosis Discharge Diagnosis (1) Hypoxia: Status: Acute (2) Enteritis: Status: Acute (3) Aspiration pneumonia: Status: Acute DS: Summary Hospital Course Hospital Course: History of presenting illness: Date of Service: 02/12/24 Chief Complaint: Dyspnea This is a 79-year-old male with history of developmental delay, hypothyroidism, mood disorder, IOL implant, BPH who was brought to the emergency department for evaluation of dyspnea and hypoxia. Unable to obtain history from the patient as he does not communicate at baseline. Only answers with yes or no responses. History obtained with the help of ER provider and chart review. Patient says yes when asked if fevers having abdominal pain. Patient had an episode of vomiting prior to coming in. He was found to be hypoxemic on room air and found to be tachypneic. Unable to obtain review of systems. In the emergency department, imaging with bilateral lower lobe infiltrates and thickened small bowel loops suggestive of enteritis. Meets sepsis criteria and was initiated on empiric IV antibiotics in the ER. Febrile: Temperature 101.5 degrees. Hospital course: 79-year-old male with history of developmental delay, hypothyroidism, mood disorder, IOL implant, BPH who was brought to the emergency department for evaluation of dyspnea and hypoxia, spoke with patient healthcare proxy Shyanne Doshi according to her patient was on Levaquin for a UTI, he developed diarrhea and yesterday he was noted to be vomiting, gagging coughing and was short of breath for EMS was called and patient was brought in to [facility] chest x-ray showed multifocal bilateral airspace opacities no change since prior chest x-ray of 2022, CT abdomen and pelvis showed mildly thickened small bowel loops suggestive of enteritis, and large prostate gland with thick wall urinary bladder, bilateral lower lobe infiltrate left greater than right, likely recurrent pneumonia superimposed on chronic changes on the left, in emergency room patient was noted to be febrile with a temp of 101.5 degrees, tachypneic, low WBC count of 2.4, stable blood pressure patient admitted to hospital with a diagnosis of sepsis due to acute hypoxic respiratory failure due to aspiration pneumonia, UTI. #. Acute hypoxemic respiratory failure due to aspiration pneumonia, patient treated with IV Zosyn, cough medication, noted to have no recurrent fevers, blood culture showed no growth, WBC normal range, patient noted to have weak cough and dysphagia therefore evaluated by speech therapy they are recommending ground solids and nectar thick liquids, no straws they recommend outpatient MBS study to rule out aspiration and recommend continued speech therapy treatment as outpatient. Hypoxia resolved. # oropharyngeal dysphagia as mentioned above continue outpatient speech therapy for continued monitoring of dysphagia and possible MBS study. #. Sepsis due to asp. pneumonia + enteritis : Sepsis resolved, no abdominal pain, tolerating diet, treated with IV Zosyn now being discharged home on by mouth Augmentin for 3 more days. #. Acute Lactic acidosis due to sepsis resolved,s/p ivf, will discontinue Lasix due to soft blood pressures and no documented history of CHF. # mild acute hypokalemia repleted likely due to IV fluids/GI loss/follow BMP outpatient. #. Mood disorder: Continue home mood stabilizers #. BPH: Continue finasteride and Flomax. Time Attestation Discharge Coordination Time (in mins): 40 Quality: Safe Use of Opioids Does Pt have an Active Cancer Diagnosis on the Problem List?: No Quality: Stroke Does the patient have a stroke diagnosis?: No Physical Exam Vital Signs: Vital Signs: Last Vital Signs Temp 98.5 F 02/15/24 07:11 Pulse 74 02/15/24 07:11 Resp 18 02/15/24 07:11 BP 118/57 L 02/15/24 07:11 Pulse Ox 96 02/15/24 07:11 O2 Del Method Room Air 02/15/24 07:11 O2 Flow Rate 5 02/12/24 00:14 Oxygen Flow Rate 5 02/11/24 22:52 BMI result Body Mass Index 28.1 Const: Other: General awake alert, resting comfortably in no acute distress. Neck supple no JVD. CVS regular rate rhythm, Respiratory lungs clear, diminished, no respiratory distress, no wheeze, no rhonchi. Gastrointestinal abdomen soft, tenderness resolved, bowel sounds audible, no guarding , no rigidity. Extremities no edema. Neuro moving all 4 extremity , minimal verbalization Skin no rash DS: Data Data Completed and Pending Labs on day of discharge: Laboratory Results - last 24 hr 02/11/24 02/15/24 02/15/24 23:29 05:49 07:58 WBC 7.8 RBC 3.70 L Hgb 11.1 L Hct 31.6 L MCV 85.4 MCH 30.0 MCHC 35.1 RDW 13.4 Plt Count 149 L MPV 10.3 Absolute Nucleated RBC 0.000 Nucleated RBC % (auto) 0.0 Smear Path Review SEE NOTE Sodium 134 L Potassium 3.1 L Chloride 105 Carbon Dioxide 21 L Anion Gap 11 L BUN 14 Creatinine 0.70 Estim Creat Clear Calc 88.8 Estimated GFR > 60 Random Glucose 101 Calcium 8.4 Preliminary micro results at discharge 02/11/24 23:29 Blood Culture - Preliminary Blood - Venous No growth after 48 hours. 02/11/24 23:29 Blood Culture - Preliminary Blood - Venous No growth after 48 hours. Discharge Plan Discharge Anticipated Discharge Date/Time: 02/15/24 11:42 Patient Disposition: Home Health Service Discharge Diagnosis: Acute hypoxic respiratory failure due to aspiration pneumonia Sepsis due to aspiration pneumonia/acute enteritis Acute lactic acidosis Dysphagia Referrals: Usha Blancas MD [Primary Care Provider] - 1 Week Discharge Medications: New amoxicillin-pot clavulanate 875-125 mg tablet 1 tab PO BID Qty: 6 0RF dextromethorphan-guaifenesin 10-100 mg/5 mL Syrup 10 ml PO QID Qty: 237 0RF Rx Instructions: for 3 days than as needed every 8h for cough Continued acetaminophen 325 mg tablet 2 tab PO Q6H PRN (Reason: fever or pain) citalopram 20 mg tablet 1 tab PO DAILY tamsulosin 0.4 mg capsule 1 cap PO BID omeprazole 20 mg capsule,delayed release(DR/EC) 2 cap PO DAILY@0630 finasteride 5 mg tablet 1 tab PO DAILY multivitamin Tablet 1 tab PO DAILY triamcinolone acetonide 0.1 % Cream 1 appl TOPICAL DAILY PRN (Reason: Rash) magnesium oxide 400 mg (241.3 mg magnesium) Tablet 400 mg PO BIDPC 30 Days Qty: 60 0RF docusate sodium [Colace] 100 mg capsule 100 mg PO BID Qty: 60 0RF polyethylene glycol 3350 [Miralax] 17 gram/dose powder 17 g PO DAILY PRN (Reason: constipation) Qty: 510 0RF Debrox 6.5 % Drops 2 drp OTIC (EARS) DAILY PRN (Reason: cerumen impaction) Discontinued furosemide 20 mg tablet 10 mg PO DAILY Rx Instructions: hold if BP < 100/60 levofloxacin 500 mg tablet 500 mg PO DAILY 5 Days Qty: 5 0RF Rx Instructions: started 02/10/24 Discharge Orders: Discharge Order (Routine); Ordered 02/15/24 Ordered By: Sun Stubbs Diet: Regular diet Activity on Discharge: As tolerated Stand Alone Forms: Patient Portal Discharge page Print Language: [place] Other Ambulatory Orders: Basic Metabolic Panel (Routine) Timeframe: 1 Day Facility: [facility] - Location: Laboratory Ordered By: Sun Stubbs Care Plan Goals: Dysphagia continue ground mechanical solids with nectar thick liquids, thin liquids via tsp is okay/continue dysphagia treatment as outpatient/consider outpatient MBS to rule out aspiration Aspiration pneumonia continue by mouth Augmentin twice daily for 3 more days Encourage deep breathing/out of bed to chair as tolerated Continue cough medication scheduled for 3 days and then as needed Enteritis resolved Urine culture negative Low potassium likely due to Lasix repleted follow BMP on 02/15 Health Concerns: stop Lasix due to soft blood pressures Continue all other home medications Plan of Treatment: Outpatient follow-up with primary care physician Assessment: As above
[2024-02-15] MEDS: Potassium Chloride Packet 20 MEQ PACKET 40 MEQ PO (11:57)
--- NOTE | 2024-02-15 12:29 | MHC.SL.SWA ---
Risk of Aspiration Due to: History of Pneumonia Reduced Cognition Dysphasia Diet Status: NO CHANGE Liquid Consistency and Strategies for Safe Swallow: Liquid Intake Recommendation: [place] Thick Liquid Intake Strategies: Small Sips No Straws Solid Food Consistency: Dietary Recommendations: Grnd/Mech Altered (NDD2) Oral Medication Intake: Crushed with Puree Please contact the pharmacy regarding appropriate crushable or liquid drug formulations that are available whenever modified delivery is recommended. Compensatory Strategies and Precautions to be Taken for Safe Swallow: Sitting Upright (90 deg) No Straw Small Bites and Sips Alternate Liquids/Solids Rate of Ingestion Change Oral Check Supervision While Eating and Drinking for Safe Swallow: Total Supervision (1:1) Foods to Avoid: Mixed textures Swallowing Recommended Treatments: Compens. Strategy Educat. Recommendation for Speech: Inpatient Speech Therapy Recommend patient continue with ground/mech altered solids (NDD2) with nectar thick liquids (no straws) and pills crushed in puree. Thin liquids via teaspoon okay. Otherwise, nectar thick. Recommend FULL SUPERVISION and strict aspiration precautions. Recommendations for modified diet d/t overt s/s aspiration on thin liquids via cup sip and prolonged/difficulty w/ mastication secondary to loose fitting dentures. Recommend f/u to get fitted dentures. Recommended continued dysphasia tx at next level of care given this is not his baseline. May benefit from outpatient MBS to better rule in/out aspiration. HOME FURNISHINGS SALES REPRESENTATIVE provided some handouts into his binder regarding recommendations to be sent home w/ d/c paperwork. Last Ironer Clinican/Clinical Fellow: No Supervisory Statement: I have reviewed and agree with the student/clinical fellow's documentation: N/A Speech Language Pathologist: Carmita Woods M.A., CCC-HOME FURNISHINGS SALES REPRESENTATIVE
== END 2024-02-15 14:44 | disposition home or self-care (01) | DRG 871 ==
LOC: HO.ED 02-12 02:32 → HO.EDOVER 02-12 02:52 → HO.S3 02-12 12:13
PROVIDERS: Admitting Provider Student in an Organized Health Care Education/Training Program; Emergency Provider Emergency Medicine; PCP Internal Medicine; Visit Provider Hospitalist
DX: A41.9 Sepsis, unspecified organism (principal); J69.0 Pneumonitis due to inhalation of food and vomit; J96.01 Acute respiratory failure with hypoxia; A09 Infectious gastroenteritis and colitis, unspecified; E87.21 Acute metabolic acidosis; R13.10 Dysphagia, unspecified; F39 Unspecified mood [affective] disorder; N40.0 Benign prostatic hyperplasia without lower urinary tract symptoms; R62.50 Unspecified lack of expected normal physiological development in childhood; E03.9 Hypothyroidism, unspecified; Z20.822 Contact with and (suspected) exposure to COVID-19; Z87.440 Personal history of urinary (tract) infections; Z79.890 Hormone replacement therapy; Z79.899 Other long term (current) drug therapy
CPT/HCPCS: 0241U; 36415; 71045; 74177; 80048; 80076; 80307; 81001; 82803; 83605; 83690; 83735; 83880; 84484; 85025; 85027; 86140; 87040; 87086; 92526; 92610; 93005; 94640; 99285; J0696; J1650; J1836; J2405; J2543

== ENCOUNTER → 2024-02-11 22:48 | Outpatient (BNV) | payer MEDICARE, MEDICAID, SELFPAY | PROVIDERS: Admitting Provider Student in an Organized Health Care Education/Training Program; Emergency Provider Emergency Medicine; Visit Provider Internal Medicine Cardiovascular Disease | DX: R06.02 Shortness of breath (principal) | CPT/HCPCS: 93010 ==

== ENCOUNTER → 2024-02-12 02:44 | Outpatient (BNV) | payer MEDICARE, MEDICAID, SELFPAY | PROVIDERS: Admitting Provider Student in an Organized Health Care Education/Training Program; Emergency Provider Emergency Medicine; Visit Provider Student in an Organized Health Care Education/Training Program | DX: J96.01 Acute respiratory failure with hypoxia (principal); J69.0 Pneumonitis due to inhalation of food and vomit; K52.9 Noninfective gastroenteritis and colitis, unspecified | CPT/HCPCS: 99223; 99233; 99239; 99499 ==

== ENCOUNTER 2024-02-16 11:06 | Outpatient (REF) | payer MEDICARE, MEDICAID, SELFPAY ==
[2024-02-16 12:36] LABS: Anion Gap 9 (12-20); Blood Urea Nitrogen 16 mg/dL (9-16); Calcium 8.9 mg/dL (8.4-10.2); Carbon Dioxide 25 mmol/L (22-29); Chloride 107 mmol/L (96-108); Estimated Glomerular Filt Rate > 60; Glucose Random 126 mg/dL (60-115); Potassium 3.1 mmol/L (3.3-5.1); Sodium 138 mmol/L (135-145)
== END 2024-02-16 11:07 | disposition home or self-care (01) ==
LOC: HO.LAB 11:06
PROVIDERS: PCP Internal Medicine; Visit Provider Hospitalist
DX: E87.6 Hypokalemia (principal)
CPT/HCPCS: 36415; 80048

== ENCOUNTER 2024-02-27 16:36 | Emergency (ER) | payer MEDICARE, MEDICAID, SELFPAY ==
--- NOTE | ~2024-02-27 | CT_ITS ---
EXAMINATION: CT ABDOMEN AND PELVIS WITH CONTRAST CLINICAL INFORMATION: Lower abdominal pain, diarrhea COMPARISON: 02/12/2024 TECHNIQUE: Multidetector volumetric images were obtained from the superior aspect of the liver through the pubic symphysis following administration 85 mL of Omnipaque 350 intravenous contrast. Sagittal and coronal reformatted images were obtained on the technologist's workstation. Oral contrast: No This CT examination was performed using dose optimization techniques as appropriate, variously including the following: *Automated exposure control *Adjustment of mA and/or kV according to patient size (this includes techniques or standardized protocols for targeted exams where dose is matched to indication/reason for exam; i.e. extremities or head) *Use of iterative reconstruction technique DLP: 475 mGy-cm FINDINGS: LUNG BASES: Patchy areas of somewhat nodular consolidation are present at the bilateral lung bases, similar on the right and improved on the left compared to prior. Trace left pleural effusion. LIVER, GALLBLADDER, AND BILIARY TREE: The liver is normal in size, shape, and attenuation. Mild intrahepatic biliary ductal prominence, which may be physiologic in the setting of prior cholecystectomy. PANCREAS: Moderately atrophic. SPLEEN: Unremarkable. ADRENAL GLANDS: Unremarkable. KIDNEYS AND URETERS: Bilateral nephrograms are symmetric. No hydronephrosis or obstructing calculus identified. Few bilateral renal cysts are noted measuring up to 3.4 cm in the right lower pole; no follow-up recommended. BLADDER: Partially distended and with a mildly thick-walled appearance. GASTROINTESTINAL TRACT: No evidence of bowel obstruction. Thick-walled appearance of the rectum, though not fully distended. Trace pelvic free fluid. No free air identified. ABDOMINAL WALL: No significant hernia is appreciated. LYMPH NODES: Normal. VASCULAR: Unremarkable. PELVIC VISCERA: Enlarged prostate gland measuring approximately 5.8 cm in transverse dimension. OSSEOUS STRUCTURES: Scattered degenerative endplate changes in the spine. Grade 1 anterolisthesis of L5 on S1 with associated facet arthropathy. Left femoral neck screws are noted. CT/CT abdomen pelvis w IV con IMPRESSION: 1. Thick-walled appearance of the rectum, though not fully distended. Proctitis cannot be excluded. 2. Mildly thick-walled appearance of the urinary bladder, which could be due to chronic outlet obstruction versus cystitis in the proper clinical setting. 3. Trace pelvic free fluid. 4. Patchy areas of somewhat nodular consolidation at the bilateral lung bases, similar on the right and improved on the left compared to prior. Appearance favors an infectious/inflammatory etiology such as pneumonia or aspiration. Trace left pleural effusion. 5. Enlarged prostate gland.
[2024-02-27 17:08] VITALS: BP 114/48; BP 130/77; PULSE 67; PULSE 88; RESP 18; TEMP 36.8; O2SAT 94; O2SAT 95
--- NOTE | 2024-02-27 17:18 | PC.NURSE ---
Pt coming from home via EMS, caregiver called for EMS when pt was complaining of severe ABD pain and his SPo2 was 86%. Pt had recent hospitalization 1 week ago for PNA, taking ABX. Pt reports lower ABD pain, in suprapubic region and LLQ, cannot give a number or describe it. Pt does report painful urination and diarrhea, all symptoms starting yesterday. Denies any CP, SOB or vomiting. Pt is alert and at his baseline, pt has developmental delay, has trouble answering some questions. Breathing even and unlabored, skin warm and dry. Pt was given 50 mcg fentanyl by EMS and reports it helped some.
[2024-02-27 17:22] VITALS: BP 114/48; PULSE 70; RESP 19; TEMP 37.3; O2SAT 95
--- NOTE | 2024-02-27 18:07 | ED_ITS ---
HPI - Abdominal Pain General Chief Complaint: Abdominal Pain Stated Complaint: LOWER ABD PAIN Time Seen by Provider: 02/27/24 17:05 Source: patient Mode of arrival: EMS History of Present Illness HPI narrative: 79-year-old male presents from home, was recently admitted here for pneumonia and now reports lower abdominal pain in the suprapubic region since yesterday with dysuria and associated diarrhea. 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 Related Data Home Medications ?Medication ?Instructions ?Recorded ?Confirmed acetaminophen 325 mg tablet 2 tab PO Q6H PRN fever or pain 12/13/22 02/12/24 citalopram 20 mg tablet 1 tab PO DAILY 12/13/22 02/12/24 finasteride 5 mg tablet 1 tab PO DAILY 12/13/22 02/12/24 multivitamin 1 tab PO DAILY 12/13/22 02/12/24 omeprazole 20 mg capsule,delayed 2 cap PO DAILY@0630 12/13/22 02/12/24 release tamsulosin 0.4 mg capsule 1 cap PO BID 12/13/22 02/12/24 triamcinolone acetonide 0.1 % 1 appl topical DAILY PRN Rash 12/13/22 02/12/24 topical cream carbamide peroxide 6.5 % ear drops 2 drp otic (ears) DAILY PRN 02/12/24 02/12/24 (Debrox) cerumen impaction Previous Rx's ?Medication ?Instructions ?Recorded magnesium oxide 400 mg (241.3 mg 400 mg PO BIDPC 30 days #60 tabs 12/17/22 magnesium) tablet docusate sodium 100 mg capsule 100 mg PO BID #60 caps 10/22/23 (Colace) polyethylene glycol 3350 17 17 g PO DAILY PRN constipation 10/22/23 gram/dose oral powder (Miralax) #510 grams amoxicillin 875 mg-potassium 1 tab PO BID #6 tabs 02/15/24 clavulanate 125 mg tablet dextromethorphan-guaifenesin 10 10 ml PO QID #237 mL 02/15/24 mg-100 mg/5 mL oral syrup Allergies Allergy/AdvReac Type Severity Reaction Status Date / Time No Known Allergies Allergy Verified 02/27/24 17:16 [No Known Allergies*] Review of Systems Review of Systems Pertinent positives and negatives as stated in HPI PMFSH Past Medical History Source: nursing notes reviewed Medical History Hypertension Intellectual disability Social History Social History Household Members: Caregiver Household Members Other:: arik Housing: House Housing Other:: [facility] Do you presently have visiting nurse or other home services: Yes Unable to assess alcohol history related to: Unknown Alcohol intake: never Patient Tobacco Use Status: Never used Tobacco Smoked in Last 30 Days: No Use of substances other than those prescribed or required for medical reasons: No Advance Directives: No Advance Directives Information Provided: No service: No Current occupational status: disabled Physical Exam ED Vital Signs: Vital Signs - 24 hr 02/27/24 17:08 02/27/24 17:22 02/27/24 19:21 Temperature 98.3 F 99.2 F 98.3 F Pulse Rate 67 70 64 Respiratory Rate 18 19 17 Blood Pressure 114/48 L 114/48 L 114/50 L Pulse Oximetry 95 95 97 Oxygen Delivery Method Room Air Room Air Room Air BMI result Body Mass Index 20.0 VITAL SIGNS: Reviewed. GENERAL: Well developed, well nourished, in no acute distress. HEAD: Normocephalic/atraumatic EYES: PERRLA, EOMI EARS: Ext canals without abnormality NOSE: Nares patent bilateral OROPHARYNX: no oral lesions noted, posterior pharynx clear NECK: Supple, no adenopathy LUNGS: Normal breath sounds. No adventitious sounds or accessory muscle use. SpO2<95> CARDIOVASCULAR: Regular rate and rhythm without noted murmurs, no JVD or lower extremity edema. ABDOMEN: Soft, tenderness to palpation in mid lower abdomen/suprapubic, non- distended with bowel sounds. MUSCULOSKELETAL: No tenderness, deformities, or effusions noted on gross inspection. EXTREMITIES: No cyanosis, clubbing or edema. SKIN: Inspection of the skin reveals no rashes NEUROLOGIC: Alert and oriented x 3. Strength and sensation to light touch were grossly intact x 4. Medical Decision Making Medical Decision Making MDM Narrative: 79-year-old male with history and clinical presentation, DDX: UTI, colitis, lower clinical suspicion for appendicitis or renal colic. I reviewed all investigations and hematologic indices negative for leukocytosis or left shift, there is a mild elevation of platelets and a stable normocytic anemia. Chemistry indices negative for MARIELLE/electrolyte or liver enzyme derangements. Nursing informed me that they were unable to pass a catheter for possible hypospadias and met resistance, so planfor IVF and [place] catheter. Signed out to Dr De Jesus to follow up on UA. Differential Diagnosis Differential Diagnoses: The differential diagnosis associated with the presentation includes Please see the discussion above Admission/Observation Consideration of admission/observation: Escalation of care including admission/observation considered Please see the discussion above Lab Data MDM Lab Attestation statement: I reviewed the patient's lab results. Please see the discussion above 02/27/24 18:23 02/27/24 18:23 Labs: Lab Results 02/27/24 Range/Units 18:23 WBC 5.8 (4.8-10.8) X10*3/uL RBC 3.57 L (4.60-5.80) X10*6/uL Hgb 10.4 L (14.0-18.0) g/dl Hct 31.3 L (42.0-52.0) % MCV 87.7 (80.0-98.0) fL MCH 29.1 (27.0-33.0) pg MCHC 33.2 (31.0-36.0) g/dl RDW 13.2 (11.0-16.0) % Plt Count 405 H D (160-400) X10*3/uL MPV 8.3 L (9.4-12.4) fL Immature Gran % (Auto) 0.3 (0.0-0.4) % Neut % (Auto) 60.9 (45-73) % Lymph % (Auto) 25.8 (20-40) % Archuleta % (Auto) 8.4 (2-11) % Eos % (Auto) 3.4 (0-4) % Baso % (Auto) 1.2 (0-2) % Lymph # (Auto) 1.5 (1.2-4.9) X10*3/uL Archuleta # (Auto) 0.5 (0.1-1.2) X10*3/uL Eos # (Auto) 0.2 (0.0-0.4) X10*3/uL Baso # (Auto) 0.1 (0.0-0.2) X10*3/uL Abs Immat Gran (auto) 0.02 (0.00-0.03) X10*3/uL Absolute Neuts (auto) 3.5 (2.0-8.3) x10*3/uL Absolute Nucleated RBC 0.000 (0.0-0.012) X10*3/uL Nucleated RBC % (auto) 0.0 (0.0-0.2) /100WBC Sodium 139 (135-145) mmol/L Potassium 4.2 D (3.3-5.1) mmol/L Chloride 106 (96-108) mmol/L Carbon Dioxide 24 (22-29) mmol/L Anion Gap 13 (12-20) BUN 20 H (9-16) mg/dL Creatinine 0.73 (0.5-1.4) mg/dL Estim Creat Clear Calc 80.4 Estimated GFR > 60 Random Glucose 81 (60-115) mg/dL Lactic Acid 0.8 (0.5-2.0) mmol/L Calcium 8.9 (8.4-10.2) mg/dL Total Bilirubin 0.3 (0.0-1.0) mg/dL AST 15 (5-37) U/L ALT 13 (0-40) U/L Alkaline Phosphatase 71 (39-117) U/L Total Protein 6.4 L (6.5-8.0) g/dL Albumin 3.0 L (3.5-5.0) g/dL External Record Review External record reviewed: Outpatient record, Prior outpatient labs and Prior outpatient radiology Critical Care Time Critical Care Time Critical Care Time: Yes Total Critical Care Time: 45 Attestation: I personally attest to this time spent taking care of the patient. Discharge Plan Discharge Clinical Impression: Abdominal pain, lower Patient Disposition: Still a Patient Prescriptions: No Action acetaminophen 325 mg tablet 2 tab PO Q6H PRN (Reason: fever or pain) citalopram 20 mg tablet 1 tab PO DAILY tamsulosin 0.4 mg capsule 1 cap PO BID omeprazole 20 mg capsule,delayed release(DR/EC) 2 cap PO DAILY@0630 finasteride 5 mg tablet 1 tab PO DAILY multivitamin Tablet 1 tab PO DAILY triamcinolone acetonide 0.1 % Cream 1 appl TOPICAL DAILY PRN (Reason: Rash) magnesium oxide 400 mg (241.3 mg magnesium) Tablet 400 mg PO BIDPC 30 Days Qty: 60 0RF docusate sodium [Colace] 100 mg capsule 100 mg PO BID Qty: 60 0RF polyethylene glycol 3350 [Miralax] 17 gram/dose powder 17 g PO DAILY PRN (Reason: constipation) Qty: 510 0RF Debrox 6.5 % Drops 2 drp OTIC (EARS) DAILY PRN (Reason: cerumen impaction) amoxicillin-pot clavulanate 875-125 mg tablet 1 tab PO BID Qty: 6 0RF dextromethorphan-guaifenesin 10-100 mg/5 mL Syrup 10 ml PO QID Qty: 237 0RF Rx Instructions: for 3 days than as needed every 8h for cough Print Language: [place] Islander
[2024-02-27 18:28] LABS: MANUAL DIFF FLAG NO
[2024-02-27 18:30] LABS: Basophils Absolute Auto 0.1 X10*3/uL (0.0-0.2); Basophils Percent Auto 1.2 % (0-2); Eosinophils Absolute Auto 0.2 X10*3/uL (0.0-0.4); Eosinophils Percent Auto 3.4 % (0-4); Hematocrit 31.3 % (42.0-52.0); Hemoglobin 10.4 g/dl (14.0-18.0); Imm Gran Abs Auto 0.02 X10*3/uL (0.00-0.03); Imm Gran Pct Auto 0.3 % (0.0-0.4); Lymphocytes Absolute Auto 1.5 X10*3/uL (1.2-4.9); Lymphocytes Percent Auto 25.8 % (20-40); Mean Corpuscular HGB Conc 33.2 g/dl (31.0-36.0); Mean Corpuscular Hemoglobin 29.1 pg (27.0-33.0); Mean Corpuscular Volume 87.7 fL (80.0-98.0); Mean Platelet Volume 8.3 fL (9.4-12.4); Monocytes Absolute Auto 0.5 X10*3/uL (0.1-1.2); Monocytes Percent Auto 8.4 % (2-11); Neutrophils Absolute Auto 3.5 x10*3/uL (2.0-8.3); Neutrophils Percent Auto 60.9 % (45-73); Platelet Count 405 X10*3/uL (160-400); Red Blood Count 3.57 X10*6/uL (4.60-5.80); Red Cell Distribution Width 13.2 % (11.0-16.0); White Blood Count 5.8 X10*3/uL (4.8-10.8)
[2024-02-27 18:39] LABS: Lactic Acid 0.8 mmol/L (0.5-2.0)
[2024-02-27 18:43] LABS: Alanine Aminotransferase 13 U/L (0-40); Alkaline Phosphatase 71 U/L (39-117); Anion Gap 13 (12-20); Aspartate Amino Transferase 15 U/L (5-37); Bilirubin Total 0.3 mg/dL (0.0-1.0); Blood Urea Nitrogen 20 mg/dL (9-16); Calcium 8.9 mg/dL (8.4-10.2); Carbon Dioxide 24 mmol/L (22-29); Chloride 106 mmol/L (96-108); Creatinine Clr Calc Pharmacy 80.4; Estimated Glomerular Filt Rate > 60; Glucose Random 81 mg/dL (60-115); Potassium 4.2 mmol/L (3.3-5.1); Sodium 139 mmol/L (135-145); Total Protein 6.4 g/dL (6.5-8.0)
--- NOTE | 2024-02-27 18:56 | MHC.EDTECH ---
Unable to obtain 2nd set of cultures, delayed draw, hard stick
--- NOTE | 2024-02-27 19:00 | MHC.EDTECH ---
This tech took over care as PCT at 1900
[2024-02-27 19:21] VITALS: BP 114/50; PULSE 64; RESP 17; TEMP 36.8; O2SAT 97
[2024-02-27 22:21] LABS: Appearance Urine Clear; Color Urine Yellow; Glucose Urine UA Negative (Negative); Leukocyte Esterase Urine Trace (Negative); Nitrite Urine Negative (Negative); UMIC TRIGGER UACC YES; Urine Blood Negative (Negative); Urine Ketones 15 mg/dL (Negative); Urine Protein Negative (Neg-Trace)
[2024-02-27 22:26] LABS: Bacteria Urine None Seen (None Seen); Hyaline Casts Urine 0-2 /LPF (0-2); RBC Urine 0-2 /HPF (0-2); Squamous Epithelial Cell Urine 0-2 /HPF (0-2); WBC Urine 0-5 /HPF (0-5)
[2024-02-28] MEDS: 0.9 % Sodium Chloride 1,000 ML 999 ML IV (00:12)
[2024-02-28] MEDS: iohexoL 350 MG/ML 100 ML INFUS..BTL 85 ML IV (00:15)
[2024-02-28 00:50] VITALS: BP 130/54; PULSE 70; RESP 16; TEMP 36.6; O2SAT 96
[2024-02-28] MEDS: Amoxicillin/Potassium Clav 875 MG TABLET PO (03:36)
[2024-02-28 03:40] VITALS: BP 136/57; PULSE 73; RESP 16; TEMP 36.6; O2SAT 97
== END 2024-02-28 03:53 | disposition home or self-care (01) ==
PROVIDERS: Student in an Organized Health Care Education/Training Program; Emergency Provider Emergency Medicine
DX: R10.2 Pelvic and perineal pain (principal); R10.30 Lower abdominal pain, unspecified; K62.89 Other specified diseases of anus and rectum; R30.0 Dysuria; R19.7 Diarrhea, unspecified; R11.0 Nausea; Z79.899 Other long term (current) drug therapy
CPT/HCPCS: 36415; 51701; 51798; 74177; 80053; 81001; 83605; 85025; 87040; 96360; 99285; Q9967

== ENCOUNTER 2025-04-20 10:22 | Emergency (ER) | payer MEDICARE, MEDICAID, SELFPAY ==
--- NOTE | ~2025-04-20 | CT_ITS ---
CLINICAL HISTORY: iarrheam TTP, hx diverticulitis CT abdomen and pelvis with contrast Comparison: None provided Findings: There is right middle lobe atelectasis/pneumonia. There is volume loss and shift of the cardiomediastinal structures to the right. The patient is status post cholecystectomy. There is associated mild intrahepatic biliary ductal dilatation. The extrahepatic biliary tree is normal. The liver is otherwise unremarkable. There is pancreatic atrophy. There is a 4 cm cyst arising the lower pole of the right kidney. There is a small left renal cyst. The adrenal glands and spleen are unremarkable. There is suspected colonic wall thickening in the rectosigmoid in particular. Evaluation of the rest of the colon is somewhat limited as it is underdistended. There is no evidence of diverticulosis/diverticulitis. There is prostatomegaly. The appendix is not identified. There is no evidence of appendicitis. There is a large right hydrocele. The bones are intact. The rest of the GI tract is unremarkable. IMPRESSION: 1. Suspect mild colonic wall thickening particularly in the rectosigmoid suspicious for proctocolitis. 2. Right middle lobe atelectasis/pneumonia. 3. Other chronic findings as above. This document has been electronically signed by: Justino Calle MD on 04/20/2025 12:35:44
[2025-04-20 10:33] VITALS: BP 118/60; BP 125/54; PULSE 71; PULSE 72; RESP 14; TEMP 36.6; O2SAT 100; O2SAT 98; BMI 20.1
--- NOTE | 2025-04-20 10:41 | ED_ITS ---
HPI - General Adult General Chief complaint: Nausea/Vomiting/Diarrhea Stated complaint: DIARRHEA Time Seen by Provider: 04/20/25 10:27 Source: patient and EMS Mode of arrival: EMS Limitations: physical limitation (Intellectual disability) History of Present Illness ED Provider: vimal anaya np HPI narrative: Patient is an 80-year-old male who [facility] emergency department [facility] staff report to [facility] was that patient is a began experiencing diarrhea since yesterday. Patient endorses having ?an accident? last night of diarrhea which staff reported as well. He denies any nausea, there has been no report of vomiting. No reported sick contacts. Patient reports having pain diffusely low in the abdomen. When asked he denies fevers, chills, chest pain, shortness of breath, headache, pain with urination, hematuria, frequency Related Data Home Medications ?Medication ?Instructions ?Recorded ?Confirmed acetaminophen 325 mg tablet 2 tab PO Q6H PRN fever or pain 12/13/22 02/12/24 citalopram 20 mg tablet 1 tab PO DAILY 12/13/2201/29 finasteride 5 mg tablet 1 tab PO DAILY 12/13/2201/29 multivitamin 1 tab PO DAILY 12/13/2201/29 omeprazole 20 mg capsule,delayed 2 cap PO DAILY@0630 0 12/13/22 02/12/24 release tamsulosin 0.4 mg capsule 1 cap PO BID 12/13/22 triamcinolone acetonide 0.1 % 1 appl topical DAILY PRN Rash 12/13/22 02/12/24 topical cream carbamide peroxide 6.5 % ear drops 2 drp otic (ears) D AILY PRN 02/12/24 02/12/24 (Debrox) cerumen impaction Previous Rx's ?Medication ?Instructions ?Recorded magnesium oxide 400 mg (241.3 mg 400 mg PO BIDPC 30 da ys #60 tabs 12/17/22 magnesium) tablet docusate sodium 100 mg capsule 100 mg PO BID #60 caps 10/22/23 (Colace) polyethylene glycol 3350 17 17 g PO DAILY PRN constipa tion 10/22/23 gram/dose oral powder (Miralax) #510 grams amoxicillin 875 mg-potassium 1 tab PO BID #6 tabs 01/29 05/23 clavulanate 125 mg tablet dextromethorphan-guaifenesin 10 10 ml PO QID #237 mL 0 02/15/24 mg-100 mg/5 mL oral syrup amoxicillin 875 mg-potassium 1 tab PO BID #14 tabs clavulanate 125 mg tablet amoxicillin 875 mg-potassium 1 tab PO BID #20 tabs clavulanate 125 mg tablet Allergies Allergy/AdvReac Type Severity Reaction Status Date / Time No Known Allergies (No Known Allergy Verified 04/20/25 10:39 Allergies*) Review of Systems 2 Review of Systems: Yes all other systems are reviewed and are negative [facility] Past Medical History Attestation statement: The following information was validated with the patient. Source: old records reviewed Medical History Hypertension Intellectual disability Social History Social History Household Members: Caregiver Household Members Other:: arik Housing: House Housing Other:: [facility] Do you presently have visiting nurse or other home services: Yes Unable to assess alcohol history related to: Unknown Alcohol intake: never Patient Tobacco Use Status: Never used Tobacco service: No Current occupational status: disabled Physical Exam ED Vital Signs: Vital Signs - 24 hr 04/20/25 10:33 04/20/25 14:09 Temperature 98 F 98.1 F Pulse Rate 71 76 Respiratory Rate 14 18 Blood Pressure 125/54 L 136/68 Pulse Oximetry 100 98 Oxygen Delivery Method Room Air Room Air BMI result Body Mass Index 20.1 Appearance: Alert.?Oriented to person, place and time. No acute distress.?Normal affect. Eyes: Pupils equal, round and reactive to light.? ENT: Pharynx normal.?? Neck: Normal inspection.? Neck supple.?? CVS: Heart sounds normal. Normal heart rate and rhythm.? Pulses normal.?? Respiratory: No respiratory distress.? Lung sounds clear to auscultation bilaterally?? Abdomen: Soft with diffuse lower abdominal tenderness upon palpation. No rebound tenderness. No rigidity or guarding. Normoactive bowel sounds. No CVAT. ? Skin: Skin warm and dry.? Normal skin color.? Extremities: No lower extremity edema.? Neuro: Moves all extremities spontaneously. Sensation intact bilaterally. No focal neuro deficits. Ambulates with normal steady gait. Course Reevaluation(s) Reevaluation #1: CT of the abdomen and pelvis revealing mild colonic wall thickening partially in the rectosigmoid colon suspicious for proctocolitis, there is additionally runs concerning for right middle lobe atelectasis/pneumonia. When asked patient denied any URI symptoms, and there is no reported such from long term staff. At this time to treat accordingly with Augmentin to cover both. P.O. trial in the emergency department, successful. no pain associatd ith eating, no N/V. no diarrheal episodes while in ED. at this time stable for discharge back to long term Medications Administered Discontinued Medications Generic Name Dose Route Start Last Admin Trade Name Freq PRN Reason Stop Dose Admin Iohexol 100 ml 04/20/25 11:53 04/20/25 11:54 Iohexol 350 Mg/Ml 100 Ml Infus..Btl IV 04/20/25 11:54 85 ml ONCE ONE Administration Medical Decision Making Medical Decision Making [facility] Narrative: Patient is an 80-year-old male with past medical history of hypertension, intellectual disability, depression, sinus venous ulcer, GERD, PUD, esophagitis, diverticulitis, BPH, subclinical hypothyroidism, history of left hip fracture, history of cholecystectomy, history of basal cell carcinoma who presents emergency department for evaluation of diarrhea with onset yesterday as per HPI. On examination he has a mild tenderness diffusely throughout the lower abdomen without rigidity or guarding. He is afebrile, no tachycardia, no hypotension. Has a history of diverticulitis, present to obtain to his 8 for further evaluation, may additionally be colitis, proctitis, gastroenteritis. Denies any urinary symptoms, lower suspicion for UTI/pyelonephritis, renal colic, hydronephrosis. Differential Diagnosis Differential Diagnoses: The differential diagnosis associated with the presentation includes (See narrative above) Admission/Observation Consideration of admission/observation: Escalation of care including admission/observation considered (See narrative above ) Lab Data [facility] Lab Attestation statement: I reviewed the patient's lab results. CBC is without leukocytosis, has a mild normocytic anemia not meeting transfusion criteria and is consistent with baseline, no thrombocytopenia. No electrolyte derangement. No MARIELLE. LFTs and lipase unremarkable. 04/20/25 11:05 04/20/25 11:05 Labs: Lab Results 04/20/25 Range/Units 11:05 WBC 6.6 (4.8-10.8) X10*3/uL RBC 3.70 L (4.60-5.80) X10*6/uL Hgb 10.4 L (14.0-18.0) g/dl Hct 31.0 L (42.0-52.0) % MCV 83.8 (80.0-98.0) fL MCH 28.1 (27.0-33.0) pg MCHC 33.5 (31.0-36.0) g/dl RDW 12.8 (11.0-16.0) % Plt Count 281 D (160-400) X10*3/uL MPV 8.3 L (9.4-12.4) fL Immature Gran % (Auto) 0.5 H (0.0-0.4) % Neut % (Auto) 70.8 (45-73) % Lymph % (Auto) 17.9 L (20-40) % Mclean % (Auto) 8.8 (2-11) % Eos % (Auto) 1.4 (0-4) % Baso % (Auto) 0.6 (0-2) % Lymph # (Auto) 1.2 (1.2-4.9) X10*3/uL Mclean # (Auto) 0.6 (0.1-1.2) X10*3/uL Eos # (Auto) 0.1 (0.0-0.4) X10*3/uL Baso # (Auto) 0.0 (0.0-0.2) X10*3/uL Abs Immat Gran (auto) 0.03 (0.00-0.03) X10*3/uL Absolute Neuts (auto) 4.7 (2.0-8.3) x10*3/uL Absolute Nucleated RBC 0.000 (0.0-0.012) X10*3/uL Nucleated RBC % (auto) 0.0 (0.0-0.2) /100WBC Sodium 139 (135-145) mmol/L Potassium 4.1 (3.3-5.1) mmol/L Chloride 106 (96-108) mmol/L Carbon Dioxide 25 (22-29) mmol/L Anion Gap 12 (12-20) BUN 22 H (9-16) mg/dL Creatinine 0.73 (0.5-1.4) mg/dL Estim Creat Clear Calc 75.5 Estimated GFR > 60 Random Glucose 90 (60-115) mg/dL Calcium 9.2 (8.4-10.2) mg/dL Magnesium 1.8 (1.6-2.6) mg/dL Total Bilirubin 0.2 (0.0-1.0) mg/dL AST 23 (5-37) U/L ALT 17 (0-40) U/L Alkaline Phosphatase 91 (39-117) U/L Total Protein 6.6 (6.5-8.0) g/dL Albumin 3.5 (3.5-5.0) g/dL Lipase 15 (8-78) U/L Radiology Impression Discussion of test interpretation with radiology: I have reviewed the radiologist's reading. Radiologist Impression: CT abdomen and pelvis with contrast Comparison: None provided Findings: There is right middle lobe atelectasis/pneumonia. There is volume loss and shift of the cardiomediastinal structures to the right. The patient is status post cholecystectomy. There is associated mild intrahepatic biliary ductal dilatation. The extrahepatic biliary tree is normal. The liver is otherwise unremarkable. There is pancreatic atrophy. There is a 4 cm cyst arising the lower pole of the right kidney. There is a small left renal cyst. The adrenal glands and spleen are unremarkable. There is suspected colonic wall thickening in the rectosigmoid in particular. Evaluation of the rest of the colon is somewhat limited as it is underdistended. There is no evidence of diverticulosis/diverticulitis. There is prostatomegaly. The appendix is not identified. There is no evidence of appendicitis. There is a large right hydrocele. The bones are intact. The rest of the GI tract is unremarkable. IMPRESSION: 1. Suspect mild colonic wall thickening particularly in the rectosigmoid suspicious for proctocolitis. 2. Right middle lobe atelectasis/pneumonia. 3. Other chronic findings as above. Independent Historian Clinical information obtained from an independent historian. History obtained from or confirmed by: EMS External Record Review External record reviewed: Outpatient record Chronic Conditions Patient?s care impacted by: Other (See narrative above) Discharge Plan Discharge Clinical Impression: Proctocolitis Patient Disposition: Home, Self-Care Instructions: Colitis (ED) Prescriptions: New amoxicillin-pot clavulanate 875-125 mg tablet 1 tab PO BID Qty: 20 0RF No Action acetaminophen 325 mg tablet 2 tab PO Q6H PRN (Reason: fever or pain) citalopram 20 mg tablet 1 tab PO DAILY tamsulosin 0.4 mg capsule 1 cap PO BID omeprazole 20 mg capsule,delayed release(DR/EC) 2 cap PO DAILY@0630 finasteride 5 mg tablet 1 tab PO DAILY multivitamin Tablet 1 tab PO DAILY triamcinolone acetonide 0.1 % Cream 1 appl TOPICAL DAILY PRN (Reason: Rash) magnesium oxide 400 mg (241.3 mg magnesium) Tablet 400 mg PO BIDPC 30 Days Qty: 60 0RF amoxicillin-pot clavulanate 875-125 mg tablet 1 tab PO BID Qty: 14 0RF docusate sodium [Colace] 100 mg capsule 100 mg PO BID Qty: 60 0RF polyethylene glycol 3350 [Miralax] 17 gram/dose powder 17 g PO DAILY PRN (Reason: constipation) Qty: 510 0RF Debrox 6.5 % Drops 2 drp OTIC (EARS) DAILY PRN (Reason: cerumen impaction) amoxicillin-pot clavulanate 875-125 mg tablet 1 tab PO BID Qty: 6 0RF dextromethorphan-guaifenesin 10-100 mg/5 mL Syrup 10 ml PO QID Qty: 237 0RF Rx Instructions: for 3 days than as needed every 8h for cough Referrals: Cady Monique NP [Primary Care Provider, Pediatrics] Interventions: ED Discharge Assessment Last Done: 04/20/25 14:09 Discharge Date/Time: 04/20/25 14:10 Print Language: Egyptian
--- OUTSIDE RECORDS SUMMARY | 2025-04-20 10:48 | XMS_ITS | Encounter Summary ---
Author Organization [facility] Address [address] [place] [address] Care Team Providers Care Software Test Engineer Name Role Phone Usha Blancas MD Primary Care Provider [phone] Reason for Visit * Reason Onset Date Comments faxed order 04/15/2025 [facility] order Encounter Details Date Type Department Care Team (Late st Contact Info) Description 04/15/2025 Telephone Adult Medicine [facility] [address] [place], [place] [phone] Usha Blancas MD [address] [place] [address] faxed order ([facility] order) Social History Tobacco Use Types Packs/Day Years Used Date Smoking Tobacco: Never Smokeless Tobacco: Never Alcohol Use Standard Drinks/Week Comments No 0 (1 standard drink = 0.6 oz pur e alcohol) Sex and Gender Information Value Date Recorded Sex Assigned at Not on file Legal Sex Male 5:34 PM EST Gender Identity Not on file Sexual Orientation Not on file documented as of this encounter Progress Notes * Amy Martinez MA - 04/17/2025 12:27 PM EDT SIGNED SCANNED AND E-FAXED ON THE 04/12/2025 ENCOUNTER * Lola Faye - 04/15/2025 12:53 PM EDT [facility] order received please sign and fax to [phone] documented in this encounter Plan of Treatment Upcoming Encounters Date Type Department Care Team (Late st Contact Info) Description 06/26/2025 10:30 AM EDT Office Visit Adult Medicine [facility] [address] [place] [phone] Yasmeen Coates PA [address] [place] [address] 04/18/2026 9:30 AM EDT [facility] [address] [facility] [address] [place] [address] Estela Cruz MD [address] [facility] [address] [place] [address] documented as of this encounter Visit Diagnoses Not on filedocumented in this encounter Care Teams Software Test Engineer Relationship Specialty Start Date End Date Usha Blancas MD [address] [place] [id number] PCP - General Internal Medicine 05/20/20 documented as of this encounter
[2025-04-20 11:08] LABS: MANUAL DIFF FLAG NO
[2025-04-20 11:11] LABS: Basophils Percent Auto 0.6 % (0-2); Eosinophils Absolute Auto 0.1 X10*3/uL (0.0-0.4); Eosinophils Percent Auto 1.4 % (0-4); Hemoglobin 10.4 g/dl (14.0-18.0); Imm Gran Abs Auto 0.03 X10*3/uL (0.00-0.03); Imm Gran Pct Auto 0.5 % (0.0-0.4); Lymphocytes Absolute Auto 1.2 X10*3/uL (1.2-4.9); Lymphocytes Percent Auto 17.9 % (20-40); Mean Corpuscular HGB Conc 33.5 g/dl (31.0-36.0); Mean Corpuscular Hemoglobin 28.1 pg (27.0-33.0); Mean Corpuscular Volume 83.8 fL (80.0-98.0); Mean Platelet Volume 8.3 fL (9.4-12.4); Monocytes Absolute Auto 0.6 X10*3/uL (0.1-1.2); Monocytes Percent Auto 8.8 % (2-11); Neutrophils Absolute Auto 4.7 x10*3/uL (2.0-8.3); Neutrophils Percent Auto 70.8 % (45-73); Platelet Count 281 X10*3/uL (160-400); Red Cell Distribution Width 12.8 % (11.0-16.0); White Blood Count 6.6 X10*3/uL (4.8-10.8)
[2025-04-20 11:24] LABS: Alanine Aminotransferase 17 U/L (0-40); Albumin Level 3.5 g/dL (3.5-5.0); Alkaline Phosphatase 91 U/L (39-117); Anion Gap 12 (12-20); Aspartate Amino Transferase 23 U/L (5-37); Bilirubin Total 0.2 mg/dL (0.0-1.0); Blood Urea Nitrogen 22 mg/dL (9-16); Calcium 9.2 mg/dL (8.4-10.2); Carbon Dioxide 25 mmol/L (22-29); Chloride 106 mmol/L (96-108); Creatinine Clr Calc Pharmacy 75.5; Estimated Glomerular Filt Rate > 60; Glucose Random 90 mg/dL (60-115); Lipase 15 U/L (8-78); Magnesium 1.8 mg/dL (1.6-2.6); Potassium 4.1 mmol/L (3.3-5.1); Sodium 139 mmol/L (135-145); Total Protein 6.6 g/dL (6.5-8.0)
[2025-04-20] MEDS: iohexoL 350 MG/ML 100 ML INFUS..BTL IV (11:54)
--- NOTE | 2025-04-20 12:50 | PC.NURSE ---
patient given snack for po challenge per provider order
[2025-04-20 14:09] VITALS: BP 136/68; PULSE 76; RESP 18; TEMP 36.7; O2SAT 98
== END 2025-04-20 14:10 | disposition home or self-care (01) ==
PROVIDERS: Nurse Practitioner Family; Emergency Provider Emergency Medicine; PCP Nurse Practitioner Pediatrics
DX: K52.89 Other specified noninfective gastroenteritis and colitis (principal); R19.7 Diarrhea, unspecified; I10 Essential (primary) hypertension
CPT/HCPCS: 74177; 80053; 83690; 83735; 85025; 99284; Q9967